=== PATIENT | male | born 1970 | race Caucasian/White ===

== ENCOUNTER 2019-04-10 23:05 | Inpatient (IN) ==
[2019-04-11] MEDS ORDERED: MAGNESIUM HYDROXIDE SUSP 30 ML UDC PO PRN (01:43)
[2019-04-11] MEDS ORDERED: BISMUTH SUBSALICYLATE PER ML OMNICELL CHARGE PO PRN (01:43)
[2019-04-11] MEDS ORDERED: ALUMINUM/MAGNESIUM SUSP 30 ML UDC PO PRN (01:43)
[2019-04-11] MEDS ORDERED: SODIUM CHLORIDE 0.65% NA SOLN 45 ML (OCEAN) PRN (01:43)
[2019-04-11] MEDS ORDERED: ACETAMINOPHEN 325 MG TAB PO PRN (01:43)
[2019-04-11] MEDS ORDERED: PHARMACY GLYCEMIC MGMT CONSULT PRN (04:15)
[2019-04-11] MEDS ORDERED: CARBOHYDRATES FOR HYPOGLYCEMIA PO PRN (04:30)
[2019-04-11] MEDS ORDERED: GLUCAGON FOR INJ 1 MG VIAL IM PRN (04:30)
[2019-04-11] MEDS ORDERED: DEXTROSE 50% 50 ML SYRINGE IV PRN (04:30)
[2019-04-11] MEDS ORDERED: GLUCOSE 40% GEL 15 GM TUBE PO PRN (04:30)
[2019-04-11] MEDS ORDERED: GLUCOSE 10 TABS/TUBE PO PRN (04:30)
[2019-04-11 09:07] LABS: Estimated Average Glucose 123 mg/dl; Hemoglobin A1C 5.9 % (4.5-5.6)
[2019-04-11] MEDS: ATORVASTATIN 40 MG TAB PO SCH (09:11)
[2019-04-11] MEDS: INSULIN ASPART 100 UNITS/ML 3 ML PEN SC SCH ×4 (09:11→21:25)
[2019-04-11] MEDS: CLOPIDOGREL BISULFATE 75 MG TAB PO SCH (09:11)
[2019-04-11] MEDS: LISINOPRIL/HCTZ 20/12.5MG 1 TAB TAB PO SCH (09:11)
--- NOTE | 2019-04-11 09:35 | Pharmacy Report ---
Glycemic Control Consultation - Date of Service April 11, 2019 - Scope Scope: Glycemic Pharmacist consulted by Dr Pressley on 04/11 for glycemic control and to write orders per [facility] inpatient glycemic control protocol - Objective Weight: 103 kg Accuchecks BSG (last 24hrs): 04/11/19 04/11/19 01:42 08:41 POC Glucose 106 H 127 H HbA1c: Hemoglobin A1c 5.9 % (4.5-5.6) H 04/11/19 07:00 - Recent Pertinent Medications Outpatient Anti-diabetic Regimen: * Tresiba - 160 units daily, Humalog 32 units at bedtime - not clear if these doses are accurate ; per report from nursing, patient states he has not taken any insulin >1 month and is controlling diabetes with diet * A1c = 5.9 % 04/10/19 Risk Factors for Insulin Resistance: * Diet: T2DM - Assessment & Plan Assessment & Plan: ASSESSMENT: * 48 year old male admitted with psychosis. Reports not taking insulin for over a month and is eating healthier to control his diabetes. A1C w/in range at 5.9%. Unclear compliance with insulin regimen at home. Nurse to follow up to determine patient's PCP. * Will start novolog with meals this morning - will hold basal insulin until more information available PLAN FOR INPATIENT GLYCEMIC CONTROL: * Basal insulin * scale for this evening: give 10 units if BSG >180 * Bolus insulin * NovoLog per scale ACHS or Q6hrs while NPO * Goal Range: Low 110 mg/dL - High 140 mg/dL * Correction Factor: 30 mg/dL/unit * Nutritional / Prandial insulin per carb ratio of 1 unit per 10 grams CHO consumed * Please note that the plan above was derived based on current level of insulin resistance and hospital stress. These recommendations are appropriate for inpatient admission only. Plan of care upon discharge will need to be reassessed to avoid potential outpatient hypo/hyperglycemia. Thank you.
[2019-04-11] MEDS ORDERED: haloperidoL 1 MG TAB PO PRN (09:59)
[2019-04-11] MEDS ORDERED: LORazepam 0.5 MG TAB PO PRN (10:01)
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
[2019-04-11] MEDS: CITALOPRAM 20 MG TAB PO SCH (12:42)
[2019-04-11] MEDS ORDERED: LANTUS PER UNIT CHARGE SQ SCH (22:00)
[2019-04-12] MEDS: CITALOPRAM 20 MG TAB PO SCH (08:13)
[2019-04-12] MEDS: LISINOPRIL/HCTZ 20/12.5MG 1 TAB TAB PO SCH (08:15)
[2019-04-12] MEDS: ATORVASTATIN 40 MG TAB PO SCH (08:15)
[2019-04-12] MEDS: CLOPIDOGREL BISULFATE 75 MG TAB PO SCH (08:15)
[2019-04-12] MEDS: INSULIN ASPART 100 UNITS/ML 3 ML PEN SC SCH ×4 (08:57→21:22)
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
--- NOTE | 2019-04-12 11:47 | Pharmacy Report ---
Pharmacy Glycemic Short Note 2 - Date of Service April 12, 2019 - Glycemic Short BSG Results (Last 24 hours): 04/11/19 04/11/19 04/11/19 12:36 17:29 21:19 POC Glucose 110 H 185 H 96 04/12/19 08:02 POC Glucose 100 H ASSESSMENT: 04/12 * Patient received total of 14 units of insulin yesterday, no basal insulin * Fasting BSG within range at 100 mg/dL - will loosen CR slightly as BSGs trending down * Hold basal insulin at this time 04/11 * 48 year old male admitted with psychosis. Reports not taking insulin for over a month and is eating healthier to control his diabetes. A1C w/in range at 5.9%. Unclear compliance with insulin regimen at home. Per patient significant amt of weight loss of last couple of months * Will start novolog with meals this morning - will hold basal insulin until more information available PLAN FOR INPATIENT GLYCEMIC CONTROL: * Basal insulin * hold * Bolus insulin - loosen * NovoLog per scale ACHS or Q6hrs while NPO * Goal Range: Low 110 mg/dL - High 140 mg/dL * Correction Factor: 30 mg/dL/unit * Nutritional / Prandial insulin per carb ratio of 1 unit per 12 grams CHO consumed * Please note that the plan above was derived based on current level of insulin resistance and hospital stress. These recommendations are appropriate for inpatient admission only. Plan of care upon discharge will need to be reassessed to avoid potential outpatient hypo/hyperglycemia. Thank you. PLAN FOR DISCHARGE: * A1C of 5.9% indicates pre-diabetes range - per report from patient, he has not taken any insulin in months and has managed DM with healthy lifestyle/exercise/weight loss * Would ideally recommend SMBGs at home to better assess insulin needs/BSG trends, however patient refusing at this time to monitor. Hopefully try and work with patient to at least check BSGs once daily * Will continue to follow - at this point hesitant to give any insulin post discharge and encourage continuation of healthy lifestyle
[2019-04-12] MEDS: risperiDONE 1 MG TABLET PO SCH ×2 (14:14→21:24)
[2019-04-13 08:10] LABS: Chol HDL Ratio 4; Cholesterol 128 mg/dl (0-200); HDL Cholesterol 35 mg/dl; LDL Cholesterol Calculated 67 mg/dl; Triglycerides 132 mg/dl (0-150); VLDL Cholesterol 26 mg/dl
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
[2019-04-13] MEDS: CITALOPRAM 20 MG TAB PO SCH (09:49)
[2019-04-13] MEDS: ATORVASTATIN 40 MG TAB PO SCH (09:51)
[2019-04-13] MEDS: CLOPIDOGREL BISULFATE 75 MG TAB PO SCH (09:51)
[2019-04-13] MEDS: LISINOPRIL/HCTZ 20/12.5MG 1 TAB TAB PO SCH (09:51)
[2019-04-13] MEDS: risperiDONE 1 MG TABLET PO SCH ×2 (09:52→21:39)
[2019-04-13] MEDS: INSULIN ASPART 100 UNITS/ML 3 ML PEN SC SCH ×4 (09:56→21:37)
[2019-04-14] MEDS: CITALOPRAM 20 MG TAB PO SCH (08:11)
[2019-04-14] MEDS: LISINOPRIL/HCTZ 20/12.5MG 1 TAB TAB PO SCH (08:12)
[2019-04-14] MEDS: ATORVASTATIN 40 MG TAB PO SCH (08:12)
[2019-04-14] MEDS: CLOPIDOGREL BISULFATE 75 MG TAB PO SCH (08:12)
[2019-04-14] MEDS: risperiDONE 1 MG TABLET PO SCH ×2 (08:13→22:12)
--- NOTE | 2019-04-14 09:07 | Psychiatric Progress Note ---
Date of Service April 14, 2019 Impression / Recommendations Impression 48 yo male with a history of depression and 6-8 months of worsening psychosis who presented on referral from [facility] ER with paranoia without clear cause (7 yrs out from [facility], no prior psychosis, negative tox). He was admitted on a 302 involuntary commitment with a petition from his brother, and is on a 303 as of 04/14/2019 He reported low mood prior to onset of his paranoid delusions which could suggest depression with psychotic features, but demonstrates predominant delusions without otherwise disorganized behavior and rather intact thought processes (re: organization), which may indicate delus ional disorder. He remains floridly delusional, states he cannot return home due to persecution and not feeling safe there, and although he initially refused antipsychotic medication, agreed to a trial of risperidone which was started 04/12/2019. He had a meeting with his brother and LUIS who are supportive, but continues to feel unsafe at home and admits he had SI due to his level of distress, which would likely recur if he returned to his apartment. He has also demonstrated inability to care for himself as a result of his psychosis, as he has not been checking his blood sugar at home nor taking insulin for his diabetes in several months due to delusions. (1) Psychotic disorder: 2--The patient was admitted to the [facility] ([facility]) on q15 min checks (behavioral with suicide precautions) for safety. The patient will participate in group, recreational, and milieu therapies and will be offered additional individual and family sessions as clinically appropriate. Discussed antipsychotic medication with the patient to more acutely address symptoms. Refuses Risperdal at this time. Ordered Haldol and Ativan prn should he escalate throughout day. By history there is some affective component and he agrees to resume Celexa 10 mg only at this time. Will order and seek additional collateral over course of stay to refine diagnosis. 2--continue citalopram 10 mg daily, and add risperidone 1 mg twice daily to target psychosis. Check fasting lipid profile tomorrow for baseline on an atypical. Already had hemoglobin A1c checked here. Continue to encourage group attendance and participation. -Family meeting with brothers. Review safety plan, including plan to secure weapons in his home prior to discharge. -Refer for outpatient psychiatric care (manager rn case, [facility] for psychiatry and therapy). Family meeting with brother -Continue inpatient treatment on a 302 involuntary commitment, and continue to gather information toward the need for further commitment. 2--continue citalopram 10 mg daily and risperidone 1 mg twice daily. Fasting lipid profile within normal limits, hemoglobin A1c 5.9%. -Patient remains delusional, and given risks of premature discharge and demonstrated inability to maintain health and safety as above, will file for a 303 involuntary commitment. -Continue medically necessary private room for psychosis and significant paranoia, fears that unknown others are conspiring against him. -Family meeting with brother today. -Refer for outpatient treatment to include manager rn case, psychiatry, and therapy. -MoCA score 19/30 - cognition may be negatively impacted by psychosis and anxiety, but will need ongoing monitoring and retest once psychosis resolved as may be underlying cognitive disorder. 04/14--303 granted. -Family supportive and will help him identify other housing options. -Pt still does not feel safe to return home. Unable to reality test w/ respect to delusions - will continue to work on coping skills/relaxation techniques (2) Coronary arteriosclerosis: 2 -with history of stroke--continue Plavix 04/13 -recommend brain MRI as an outpatient, as the patient indicates he has not had one in at least 40 years. Want to rule out recurrent stroke, vascular dementia, or brain lesion that may be contributing to new onset psychosis. -We will refer for outpatient follow-up with PCP to schedule brain MRI, and then to determine if there is a need for a neurology referral. (3) Type II diabetes mellitus: 2/3 -diabetic pharmacy consult, HgbA1C as ordered by pharmacy. 04/12 -hemoglobin A1c 5.9%, with estimated average glucose of 123. Continue insulin regimen per diabetic pharmacist. 04/13 -appreciate diabetic pharmacist recommendations. Patient psychosis is negatively impacting his diabetes control, as he has not been checking his blood sugar at home nor taking insulin for months due to delusions of persecution. He will need close follow-up as an outpatient after discharge for ongoing monitoring and management. (4) Hypertension: daily vitals, continue lisinopril 2 -BP well controlled. Inventory Assets Strengths: has already started drawing and reading on unit, concerned family Needs: secure knives, outpatient providers Risk Factors Assessment Male: Yes : Yes Do You Have Access To A Gun?: No (but multiple fishing knives) Health Problems: No Mental Health Diagnoses: Yes Substance Use Disorders: No Previous Attempt: No Family History of Suicide: No Previous Psychiatric Hospitalization: No Protective Factors Assessment L[employer] Beliefs: Yes : No Responsible for Young Children: No Employed: No Supportive Family: Yes Interval History Identifying Information RUFINO HERNANDEZ, who goes by Art, is a 48-year-old M who currently lives alone in [place], has a history of nonspecific depression, and was admitted on 04/11/19 00:07 on a 302 involuntary commitment for paranoia and elopement from [facility]. Chief Complaint "Okay". Review of Systems Notes 10 systems reviewed; negative except as stated above Sleep Information Total Hours of Sleep: 5.5 Meal Information Percent Meal Consumed - Breakfast: 100 Percent Meal Consumed - Lunch: 100 Percent Meal Consumed - Dinner: 100 Subjective Subjective Patient was seen & assessed and interval progress reviewed with nursing and social work. He has been attending groups and taking medications as prescribed. He is eating well, and interacting appropriately with others. He continues to report that people are harassing him in his apartment, and that he does not feel safe returning there. He had a family meeting with his brother and [id number] yesterday. They stated that the patient had improved since a dmission, and were willing to help him work on a plan to find different housing. The patient was able to identify many ways that his family could help him, and remained focused on delusions of persecution, at one point stating he might need to move to [place] to get away from unknown others. He remains unwilling to return home and is unsure where he will go at discharge. He does feel treatment has been helpful but remains sensitive to people "not believing" his reports of experiences at home. Physical Exam Psychiatric Orientation: alert and cooperative Apperance: appropriately dressed and appropriately groomed Eye Contact: good eye contact Motor Behavior: steady gait and station and no abnormal motor movements Speech: normal rate/rhythm/volume of speech Affect: mood congruent with affect "Okay." Thought Process: goal directed thought process Thought Content: + paranoid, + delusions and + persecution Suicidal Thoughts: denies suicidal thoughts Homicidal Thoughts: denies homicidal thoughts Hallucinations: no auditory hallucinations Cognition: recent memory grossly intact, attention grossly intact and language grossly intact Insight: + impaired insight Judgement: + impaired judgement Vital Signs (Past 24 Hours) Last Vital Signs Temp 36.7 C 04/14/19 06:40 Pulse 109 H 04/14/19 06:41 Resp 18 04/14/19 06:40 BP 98/64 L 04/14/19 06:41 Pulse Ox 93 04/11/19 01:15 Results & Data Laboratory Results Laboratory Results - last 24 hr 04/13/19 04/13/19 04/13/19 12:11 17:12 21:16 POC Glucose 114 H 213 H 108 H 04/14/19 07:57 POC Glucose 147 H Current Inpatient Medications Current Inpatient Medications: Current Inpatient Medications Acetaminophen (Tylenol) 650 mg PO Q4H PRN PRN Reason: Headache or Minor Fever Stop: 05/11/19 01:42 Al Hydrox/Mg Hydrox/Simethicone (Maalox) 30 ml PO Q4H PRN PRN Reason: GI Upset Stop: 05/11/19 01:42 Atorvastatin Calcium (Lipitor) 80 mg PO [facility] Stop: 05/11/19 08:59 Last Admin: 04/14/19 08:12 Dose: 80 mg Documented by: Bismuth Subsalicylate (Kaopectate) 15 ml PO PRN PRN PRN Reason: Loose Stool Stop: 05/11/19 01:42 Citalopram Hydrobromide (Celexa) 10 mg PO [facility] Stop: 05/11/19 09:59 Last Admin: 04/14/19 08:11 Dose: 10 mg Documented by: Clopidogrel Bisulfate (Plavix) 75 mg PO [facility] Stop: 05/11/19 08:59 Last Admin: 04/14/19 08:12 Dose: 75 mg Documented by: Dextrose (Dextrose 50%) 25 - 50 ml IV UD PRN; Protocol PRN Reason: Hypoglycemia Protocol Stop: 05/11/19 04:29 Glucagon (Glucagen) 1 mg IM UD PRN; Protocol PRN Reason: Hypoglycemia Protocol Stop: 05/11/19 04:29 Glucose (Glucose 40%) 15 - 30 gm PO UD PRN; Protocol PRN Reason: Hypoglycemia Protocol Stop: 05/11/19 04:29 Glucose (Dex4 Glucose) 4 - 8 tabs PO UD PRN; Protocol PRN Reason: Hypoglycemia Protocol Stop: 05/11/19 04:29 Lisinopril/HCTZ (Prinzide 20/12.5mg) 1 tab PO QAM [facility] Stop: 05/11/19 08:59 Last Admin: 04/14/19 08:12 Dose: 1 tab Documented by: Haloperidol (Haldol) 2.5 mg PO Q6 PRN PRN Reason: Anxiety/Agitation Stop: 05/11/19 11:59 Hydroxyzine HCl (Vistaril) 50 mg PO HSZ PRN PRN Reason: Insomnia Stop: 05/11/19 01:42 Hydroxyzine HCl (Vistaril) 25 mg PO Q4H PRN PRN Reason: Anxiety Stop: 05/11/19 01:42 Insulin Aspart (Novolog Flexpen) 0 units SC ACHS [facility]; Protocol Stop: 05/11/19 07:59 Last Admin: 04/13/19 21:37 Dose: Not Given Documented by: Lorazepam (Ativan) 0.5 mg PO Q6 PRN PRN Reason: Anxiety Stop: 05/11/19 10:00 Magnesium Hydroxide (Milk Of Magnesia) 30 ml PO DAILY PRN PRN Reason: Constipation Stop: 05/11/19 01:42 Miscellaneous (Carbohydrates For Hypoglycemia) 15 - 30 gm PO UD PRN PRN Reason: Hypoglycemia Treatment Stop: 05/11/19 04:29 Miscellaneous Information (Consult Glycemic Management Pharmacy) 1 ea N/A UD PRN PRN Reason: Consult Stop: 05/11/19 04:14 Risperidone (Risperdal) 1 mg PO BID [facility] Stop: 05/12/19 13:14 Last Admin: 04/14/19 08:13 Dose: 1 mg Documented by: Sodium Chloride (Vancleave Nasal) 1 - 2 sprays NA PRN PRN PRN Reason: Nasal Dryness/Congestion Stop: 05/11/19 01:42 Post Discharge Appointments Primary Care Physician Name Of Family Doctor: Dr. Sofie ZhuMeshaKirill Mcmahon PA-C (1) Psychotic disorder Psychosis type: unspecified psychosis type Qualified Code(s): F29 - Unspecified psychosis not due to a substance or known physiological condition
[2019-04-14] MEDS: INSULIN ASPART 100 UNITS/ML 3 ML PEN SC SCH ×4 (09:12→22:10)
--- NOTE | 2019-04-14 09:35 | Pharmacy Report ---
Pharmacy Glycemic Short Note 2 - Date of Service April 14, 2019 - Glycemic Short BSG Results (Last 24 hours): 04/13/19 04/13/19 04/13/19 12:11 17:12 21:16 POC Glucose 114 H 213 H 108 H 04/14/19 07:57 POC Glucose 147 H ASSESSMENT: 04/14 * Patient received total of 9 units of insulin yesterday, no basal insulin * Fasting BSG 147 mg/dL - no changes needed at this time in CF/CR * continue to hold basal insulin at this time * See CDE note for more information 04/12 * Patient received total of 14 units of insulin yesterday, no basal insulin * Fasting BSG within range at 100 mg/dL - will loosen CR slightly as BSGs trending down * Hold basal insulin at this time 04/11 * 48 year old male admitted with psychosis. Reports not taking insulin for over a month and is eating healthier to control his diabetes. A1C w/in range at 5.9%. Unclear compliance with insulin regimen at home. Per patient significant amt of weight loss of last couple of months * Will start novolog with meals this morning - will hold basal insulin until more information available PLAN FOR INPATIENT GLYCEMIC CONTROL: * Basal insulin * hold * Bolus insulin * NovoLog per scale ACHS or Q6hrs while NPO * Goal Range: Low 110 mg/dL - High 140 mg/dL * Correction Factor: 30 mg/dL/unit * Nutritional / Prandial insulin per carb ratio of 1 unit per 14 grams CHO consumed * Please note that the plan above was derived based on current level of insulin resistance and hospital stress. These recommendations are appropriate for inpatient admission only. Plan of care upon discharge will need to be reassessed to avoid potential outpatient hypo/hyperglycemia. Thank you. PLAN FOR DISCHARGE: * A1C of 5.9% indicates pre-diabetes range - per report from patient, he has not taken any insulin in months and has managed DM with healthy lifestyle/exercise/weight loss * Would ideally recommend SMBGs at home to better assess insulin needs/BSG trends, however patient refusing at this time to monitor. Hopefully try and work with patient to at least check BSGs once daily * Will continue to follow - at this point hesitant to give any insulin post discharge and encourage continuation of healthy lifestyle
[2019-04-15] MEDS: CITALOPRAM 20 MG TAB PO SCH (08:49)
[2019-04-15] MEDS: risperiDONE 1 MG TABLET PO SCH ×2 (08:50→21:18)
[2019-04-15] MEDS: LISINOPRIL/HCTZ 20/12.5MG 1 TAB TAB PO SCH (08:50)
[2019-04-15] MEDS: CLOPIDOGREL BISULFATE 75 MG TAB PO SCH (08:50)
[2019-04-15] MEDS: ATORVASTATIN 40 MG TAB PO SCH (08:50)
[2019-04-15] MEDS: INSULIN ASPART 100 UNITS/ML 3 ML PEN SC SCH ×5 (09:03→21:51)
--- NOTE | 2019-04-15 09:14 | Psychiatric Progress Note ---
Date of Service April 15, 2019 Impression / Recommendations Impression 48 yo male with a history of depression and 6-8 months of worsening psychosis who presented on referral from [facility] ER with paranoia without clear cause (7 yrs out from [facility], no prior psychosis, negative tox). He was admitted on a 302 involuntary commitment with a petition from his brother, and is on a 303 as of 04/14/2019 He reported low mood prior to onset of his paranoid delusions which could suggest depression with psychotic features, but demonstrates predominant delusions without otherwise disorganized behavior and rather intact thought processes (re: organization), which may indicate delus ional disorder. He remains floridly delusional, states he cannot return home due to persecution and not feeling safe there, and although he initially refused antipsychotic medication, agreed to a trial of risperidone which was started 04/12/2019. He had a meeting with his brother and LUIS who are supportive, but continues to feel he will be targeted if he were to return home to his apartment. He is now stating he is planning to call his insurance to install security cameras and continues to state he does not want to return back there. He has also demonstrated inability to care for himself as a result of his psychosis, as he has not been checking his blood sugar at home nor taking insulin for his diabetes in several months due to delusions. (1) Psychotic disorder: 2--The patient was admitted to the [facility] ([facility]) on q15 min checks (behavioral with suicide precautions) for safety. The patient will participate in group, recreational, and milieu therapies and will be offered additional individual and family sessions as clinically appropriate. Discussed antipsychotic medication with the patient to more acutely address symptoms. Refuses Risperdal at this time. Ordered Haldol and Ativan prn should he escalate throughout day. By history there is some affective component and he agrees to resume Celexa 10 mg only at this time. Will order and seek additional collateral over course of stay to refine diagnosis. 2--continue citalopram 10 mg daily, and add risperidone 1 mg twice daily to target psychosis. Check fasting lipid profile tomorrow for baseline on an atypical. Already had hemoglobin A1c checked here. Continue to encourage group attendance and participation. -Family meeting with brothers. Review safety plan, including plan to secure weapons in his home prior to discharge. -Refer for outpatient psychiatric care (geriatric case manager, KATH Barajas for psychiatry and therapy). Family meeting with brother -Continue inpatient treatment on a 302 involuntary commitment, and continue to gather information toward the need for further commitment. 04/13--continue citalopram 10 mg daily and risperidone 1 mg twice daily. Fasting lipid profile within normal limits, hemoglobin A1c 5.9%. -Patient remains delusional, and given risks of premature discharge and demonstrated inability to maintain health and safety as above, will file for a 303 involuntary commitment. -Continue medically necessary private room for psychosis and significant paranoia, fears that unknown others are conspiring against him. -Family meeting with brother today. -Refer for outpatient treatment to include geriatric case manager, psychiatry, and therapy. -MoCA score 19/30 - cognition may be negatively impacted by psychosis and anx iety, but will need ongoing monitoring and retest once psychosis resolved as may be underlying cognitive disorder. 04/14--303 granted. -Family supportive and will help him identify other housing options. -Pt still does not feel safe to return home. Unable to reality test w/ respect to delusions - will continue to work on coping skills/relaxation techniques 04/15 - Titrating risperidone to 1mg qAM and 1.5mg qHS to target ongoing delusions. Pt remains pleasant and behaviorally appropriate, but continues to report delusional beliefs about his neighbors, feeling the situation is unchanged - Continue to coordinate with family, who has offered support to the patient - Pt is denying HI toward individuals, but does have a current plan to call his insurance to install security cameras in his apartment (2) Coronary arteriosclerosis: 2 -with history of stroke--continue Plavix 04/13 -recommend brain MRI as an outpatient, as the patient indicates he has not had one in at least 40 years. Want to rule out recurrent stroke, vascular dementia, or brain lesion that may be contributing to new onset psychosis. -We will refer for outpatient follow-up with PCP to schedule brain MRI, and then to determine if there is a need for a neurology referral. (3) Type II diabetes mellitus: 2/3 -diabetic pharmacy consult, HgbA1C as ordered by pharmacy. 04/12 -hemoglobin A1c 5.9%, with estimated average glucose of 123. Continue insulin regimen per diabetic pharmacist. 04/13 -appreciate diabetic pharmacist recommendations. Patient psychosis is negatively impacting his diabetes control, as he has not been checking his blood sugar at home nor taking insulin for months due to delusions of persecution. He will need close follow-up as an outpatient after discharge for ongoing monitoring and management. (4) Hypertension: daily vitals, continue lisinopril 2/ -BP well controlled. Inventory Assets Strengths: has already started drawing and reading on unit, concerned family Needs: secure knives, outpatient providers Risk Factors Assessment Male: Yes : Yes Do You Have Access To A Gun?: No (but multiple fishing knives) Health Problems: No Mental Health Diagnoses: Yes Substance Use Disorders: No Previous Attempt: No Family History of Suicide: No Previous Psychiatric Hospitalization: No Protective Factors Assessment Yazdanism Beliefs: Yes : No Responsible for Young Children: No Employed: No Supportive Family: Yes Interval History Identifying Information RUFINO HERNANDEZ, who goes by Art, is a 48-year-old M who currently lives alone in [place], has a history of nonspecific depression, and was admitted on 04/11/19 00:07 on a 302 involuntary commitment for paranoia and elopement from [facility]. Chief Complaint "Awesome sauce." Review of Systems Notes Constitutional: denied Cardiovascular: denied Respiratory: denied Gastrointestinal: denied Neurological: denied Psychiatric: denies symptoms other than stated above Total of at least 10 systems reviewed, pertinent positives as above and in HPI. Sleep Information Total Hours of Sleep: 4.5 Sleep Comments: Patient gets up early to read in the day room. Meal Information Percent Meal Consumed - Breakfast: 90 Percent Meal Consumed - Lunch: 90 Percent Meal Consumed - Dinner: 100 Subjective Subjective Patient was seen & assessed and interval progress reviewed with treatment team. Staff report the patient continues to attend group programming regularly. Remains superficially pleasant and cooperative; however, continues to verbalize various delusional beliefs during conversation. 303 extended involuntary commitment was granted on 04/14/2019. Patient was seen today to assess progress since admission. He provides verbal consent to allow Griselda Campbell PA-C to observe today's encounter. Patient begins today's conversation by using the phrase "awesome sauce", admitting he is feeling "a lot better, I feel secure. More confident." Patient states that he has been "using the things you have been teaching here to be more assertive with my family." Patient states he is actually been requesting that his brother and sister "back off" and respect his privacy with regards to conversations about finances and relationships. Patient states "the tools I am doing right here are helping me. I think I am feeling better." Patient admits he has been attending group programming regularly, otherwise staying busy by drawing or interacting with peers. Patient is able to have a superficially appropriate conversation; however, weekly spirals into more delusional thought content and admits concerned about going home. Patient believes that individuals at his apartment building will continue to be "messing with me" when he leaves. Patient states he has found comfort in a plan to "get a security system, I am going to call my insurance company and have cameras installed to monitor them." Patient denies thoughts to physically harm these individuals, but is rather convinced that he will take the steps to protect his safety. Patient continues to believe that the individuals are controlling the locks to his apartment in his truck with "their electronics." Patient denies any of these concerns here in the hospital. He denies suicidal ideation at this time. He denies other needs or concerns. Physical Exam Psychiatric Orientation: alert and cooperative (and pleasant) Apperance: appropriately dressed, appropriately groomed and appeared stated age Eye Contact: good eye contact Motor Behavior: steady gait and station and no abnormal motor movements Speech: normal rate/rhythm/volume of speech Affect: euthymic affect and mood congruent with affect Mood: no depressed mood and no anxious mood "Awesome sauce" and "I feel great" Thought Process: goal directed thought process and + circumstantial thought process (interjecting statements about his artwork and about his love for cooking) Thought Content: + paranoid and + persecution Suicidal Thoughts: denies suicidal thoughts Homicidal Thoughts: denies homicidal thoughts Hallucinations: no auditory hallucinations and no visual hallucinations Cognition: attention grossly intact and language grossly intact Insight: + impaired insight Judgement: + impaired judgement Vital Signs (Past 24 Hours) Last Vital Signs Temp 36.3 C L 04/15/19 06:42 Pulse 78 04/15/19 06:42 Resp 18 04/15/19 06:42 BP 134/65 04/15/19 06:42 Pulse Ox 93 04/11/19 01:15 Results & Data Laboratory Results Laboratory Results - last 24 hr 04/14/19 04/14/19 04/14/19 12:16 17:29 21:47 POC Glucose 102 H 135 H 167 H Current Inpatient Medications Current Inpatient Medications: Current Inpatient Medications Acetaminophen (Tylenol) 650 mg PO Q4H PRN PRN Reason: Headache or Minor Fever Stop: 05/11/19 01:42 Al Hydrox/Mg Hydrox/Simethicone (Maalox) 30 ml PO Q4H PRN PRN Reason: GI Upset Stop: 05/11/19 01:42 Atorvastatin Calcium (Lipitor) 80 mg PO [facility] Stop: 05/11/19 08:59 Last Admin: 04/15/19 08:50 Dose: 80 mg Documented by: Bismuth Subsalicylate (Kaopectate) 15 ml PO PRN PRN PRN Reason: Loose Stool Stop: 05/11/19 01:42 Citalopram Hydrobromide (Celexa) 10 mg PO [facility] Stop: 05/11/19 09:59 Last Admin: 04/15/19 08:49 Dose: 10 mg Documented by: Clopidogrel Bisulfate (Plavix) 75 mg PO [facility] Stop: 05/11/19 08:59 Last Admin: 04/15/19 08:50 Dose: 75 mg Documented by: Dextrose (Dextrose 50%) 25 - 50 ml IV UD PRN; Protocol PRN Reason: Hypoglycemia Protocol Stop: 05/11/19 04:29 Glucagon (Glucagen) 1 mg IM UD PRN; Protocol PRN Reason: Hypoglycemia Protocol Stop: 05/11/19 04:29 Glucose (Glucose 40%) 15 - 30 gm PO UD PRN; Protocol PRN Reason: Hypoglycemia Protocol Stop: 05/11/19 04:29 Glucose (Dex4 Glucose) 4 - 8 tabs PO UD PRN; Protocol PRN Reason: Hypoglycemia Protocol Stop: 05/11/19 04:29 Lisinopril/HCTZ (Prinzide 20/12.5mg) 1 tab PO [facility] Stop: 05/11/19 08:59 Last Admin: 04/15/19 08:50 Dose: 1 tab Documented by: Haloperidol (Haldol) 2.5 mg PO Q6 PRN PRN Reason: Anxiety/Agitation Stop: 05/11/19 11:59 Hydroxyzine HCl (Vistaril) 50 mg PO HSZ PRN PRN Reason: Insomnia Stop: 05/11/19 01:42 Hydroxyzine HCl (Vistaril) 25 mg PO Q4H PRN PRN Reason: Anxiety Stop: 05/11/19 01:42 Insulin Aspart (Novolog Flexpen) 0 units SC ACHS AMY; Protocol Stop: 05/11/19 07:59 Last Admin: 04/15/19 09:03 Dose: 3 units Documented by: Lorazepam (Ativan) 0.5 mg PO Q6 PRN PRN Reason: Anxiety Stop: 05/11/19 10:00 Magnesium Hydroxide (Milk Of Magnesia) 30 ml PO DAILY PRN PRN Reason: Constipation Stop: 05/11/19 01:42 Miscellaneous (Carbohydrates For Hypoglycemia) 15 - 30 gm PO UD PRN PRN Reason: Hypoglycemia Treatment Stop: 05/11/19 04:29 Miscellaneous Information (Consult Glycemic Management Pharmacy) 1 ea N/A UD PRN PRN Reason: Consult Stop: 05/11/19 04:14 Risperidone (Risperdal) 1 mg PO BID AMY Stop: 05/12/19 13:14 Last Admin: 04/15/19 08:50 Dose: 1 mg Documented by: Sodium Chloride ([place] Nasal) 1 - 2 sprays NA PRN PRN PRN Reason: Nasal Dryness/Congestion Stop: 05/11/19 01:42 Mental Health & Subst Abuse Tx Psychiatrist Name of Psychiatrist: [facility] [place] [facility] Psychiatric Appointment Comment: Walk in hours 8am-3pm Tuesdays, [address] [facility] Post Discharge Appointments Primary Care Physician Name Of Family Doctor: Dr. Sofie Shields) Adonay Mcmahon PA-C [facility] Primary Care Date of Appointment with PCP: 04/26/19 Time of Appointment with PCP: 9:30am (1) Psychotic disorder Psychosis type: unspecified psychosis type Qualified Code(s): F29 - Unspecified psychosis not due to a substance or known physiological condition
[2019-04-16] MEDS: INSULIN ASPART 100 UNITS/ML 3 ML PEN SC SCH ×4 (09:41→21:29)
[2019-04-16] MEDS: CITALOPRAM 20 MG TAB PO SCH (09:44)
[2019-04-16] MEDS: ATORVASTATIN 40 MG TAB PO SCH (09:45)
[2019-04-16] MEDS: CLOPIDOGREL BISULFATE 75 MG TAB PO SCH (09:46)
[2019-04-16] MEDS: LISINOPRIL/HCTZ 20/12.5MG 1 TAB TAB PO SCH (09:46)
[2019-04-16] MEDS: risperiDONE 1 MG TABLET PO SCH ×2 (09:47→21:31)
--- NOTE | 2019-04-16 13:48 | Psychiatric Progress Note ---
Date of Service April 16, 2019 Impression / Recommendations Impression 48 yo male with a history of depression and 6-8 months of worsening psychosis who presented on referral from [facility] ER with paranoia without clear cause (7 yrs out from [facility], no prior psychosis, negative tox). He was admitted on a 302 involuntary commitment with a petition from his brother, and is on a 303 as of 04/14/2019 He reported low mood prior to onset of his paranoid delusions which could suggest depression with psychotic features, but demonstrates predominant delusions without otherwise disorganized behavior and rather intact thought processes (re: organization), which may indicate delus ional disorder. He remains floridly delusional, states he cannot return home due to persecution and not feeling safe there, and although he initially refused antipsychotic medication, agreed to a trial of risperidone which was started 04/12/2019. He had a meeting with his brother and LUIS who are supportive, but continues to feel he will be targeted if he were to return home to his apartment. He is now stating he is planning to call his insurance to install security cameras and continues to state he does not want to return back there. He has also demonstrated inability to care for himself as a result of his psychosis, as he has not been checking his blood sugar at home nor taking insulin for his diabetes in several months due to delusions. (1) Psychotic disorder: 2--The patient was admitted to the [facility] ([facility] health unit) on q15 min checks (behavioral with suicide precautions) for safety. The patient will participate in group, recreational, and milieu therapies and will be offered additional individual and family sessions as clinically appropriate. Discussed antipsychotic medication with the patient to more acutely address symptoms. Refuses Risperdal at this time. Ordered Haldol and Ativan prn should he escalate throughout day. By history there is some affective component and he agrees to resume Celexa 10 mg only at this time. Will order and seek additional collateral over course of stay to refine diagnosis. 2--continue citalopram 10 mg daily, and add risperidone 1 mg twice daily to target psychosis. Check fasting lipid profile tomorrow for baseline on an atypical. Already had hemoglobin A1c checked here. Continue to encourage group attendance and participation. -Family meeting with brothers. Review safety plan, including plan to secure weapons in his home prior to discharge. -Refer for outpatient psychiatric care (senior case manager, KATH Barajas for psychiatry and therapy). Family meeting with brother -Continue inpatient treatment on a 302 involuntary commitment, and continue to gather information toward the need for further commitment. 04/13--continue citalopram 10 mg daily and risperidone 1 mg twice daily. Fasting lipid profile within normal limits, hemoglobin A1c 5.9%. -Patient remains delusional, and given risks of premature discharge and demonstrated inability to maintain health and safety as above, will file for a 303 involuntary commitment. -Continue medically necessary private room for psychosis and significant paranoia, fears that unknown others are conspiring against him. -Family meeting with brother today. -Refer for outpatient treatment to include senior case manager, psychiatry, and therapy. -MoCA score 19/30 - cognition may be negatively impacted by psychosis and anx iety, but will need ongoing monitoring and retest once psychosis resolved as may be underlying cognitive disorder. 04/14--303 granted. -Family supportive and will help him identify other housing options. -Pt still does not feel safe to return home. Unable to reality test w/ respect to delusions - will continue to work on coping skills/relaxation techniques 04/15 - Titrating risperidone to 1mg qAM and 1.5mg qHS to target ongoing delusions. Pt remains pleasant and behaviorally appropriate, but continues to report delusional beliefs about his neighbors, feeling the situation is unchanged - Continue to coordinate with family, who has offered support to the patient - Pt is denying HI toward individuals, but does have a current plan to call his insurance to install security cameras in his apartment 04/16 -paranoia persists but trending more calm and re-directable -continue risperdal unchanged. tolerating well (2) Coronary arteriosclerosis: 2 -with history of stroke--continue Plavix 04/13 -recommend brain MRI as an outpatient, as the patient indicates he has not had one in at least 40 years. Want to rule out recurrent stroke, vascular ulices ntia, or brain lesion that may be contributing to new onset psychosis. -We will refer for outpatient follow-up with PCP to schedule brain MRI, and then to determine if there is a need for a neurology referral. (3) Type II diabetes mellitus: 2/ -diabetic pharmacy consult, HgbA1C as ordered by pharmacy. 04/12 -hemoglobin A1c 5.9%, with estimated average glucose of 123. Continue insulin regimen per diabetic pharmacist. 04/13 -appreciate diabetic pharmacist recommendations. Patient psychosis is negatively impacting his diabetes control, as he has not been checking his blood sugar at home nor taking insulin for months due to delusions of persecution. He will need close follow-up as an outpatient after discharge for ongoing monitoring and management. (4) Hypertension: daily vitals, continue lisinopril 04/12 -BP well controlled. 04/16 -BP low but asymptomatic this AM Inventory Assets Strengths: has already started drawing and reading on unit, concerned family Needs: secure knives, outpatient providers Risk Factors Assessment Male: Yes : Yes Do You Have Access To A Gun?: No (but multiple fishing knives) Health Problems: No Mental Health Diagnoses: Yes Substance Use Disorders: No Previous Attempt: No Family History of Suicide: No Previous Psychiatric Hospitalization: No Protective Factors Assessment Bahai Beliefs: Yes : No Responsible for Young Children: No Employed: No Supportive Family: Yes Interval History Identifying Information RUFINO HERNANDEZ, who goes by Art, is a 48-year-old M who currently lives alone in [place], has a history of nonspecific depression, and was admitted on 04/11/19 00:07 on a 302 involuntary commitment for paranoia and elopement from [facility]. Chief Complaint " I am very good". Review of Systems Notes Denies dizziness, dystonia. Sleep Information Total Hours of Sleep: 6.25 Sleep Comments: Patient gets up early to read in the day room. Meal Information Percent Meal Consumed - Breakfast: 75 Percent Meal Consumed - Lunch: 100 Percent Meal Consumed - Dinner: 100 Subjective Subjective Patient was seen & assessed and interval progress reviewed with treatment team. Per staff, no acute events overnight. Blood sugar 117. 303 up the . Patient rated his mood 9 out of 10 last night. Risperdal increased on Thursday. Patient reports feeling calm and experiencing a good mood. He is observed ambulating in the hallway with a stable fluid gait carrying multiple books and notepads in his hands. States he is keeping busy reading, drawing, and jotting down recipes that are interesting to him. He denies concerns presently but with a little probing residual paranoia becomes quickly evident. Believes he needs to obtain "theft insurance" and indicates that someone has been lying about his coverage. "I do not let it bother me." He denies feeling unsafe on the unit. He denies any side effects appreciable from the Risperdal Physical Exam Psychiatric Orientation: alert and cooperative Apperance: appropriately dressed and appropriately groomed Eye Contact: good eye contact Motor Behavior: steady gait and station; n akathisia Speech: normal rate/rhythm/volume of speech Affect: euthymic affect Mood: no depressed mood and no anxious mood Thought Process: + perseveration Thought Content: + paranoid Suicidal Thoughts: denies suicidal thoughts Homicidal Thoughts: denies homicidal thoughts Hallucinations: no auditory hallucinations Insight: + limited insight Judgement: + limited judgement Vital Signs (Past 24 Hours) Last Vital Signs Temp 36.7 C 04/16/19 07:00 Pulse 84 04/16/19 07:01 Resp 16 04/16/19 07:00 BP 87/57 L 04/16/19 07:01 Pulse Ox 93 04/11/19 01:15 Results & Data Laboratory Results Laboratory Results - last 24 hr 04/15/19 04/15/19 04/16/19 17:08 21:11 07:52 POC Glucose 123 H 112 H 117 H 04/16/19 04/16/19 12:37 12:41 POC Glucose 109 H 97 Current Inpatient Medications Current Inpatient Medications: Current Inpatient Medications Acetaminophen (Tylenol) 650 mg PO Q4H PRN PRN Reason: Headache or Minor Fever Stop: 05/11/19 01:42 Al Hydrox/Mg Hydrox/Simethicone (Maalox) 30 ml PO Q4H PRN PRN Reason: GI Upset Stop: 05/11/19 01:42 Atorvastatin Calcium (Lipitor) 80 mg PO [facility] Stop: 05/11/19 08:59 Last Admin: 04/16/19 09:45 Dose: 80 mg Documented by: Bismuth Subsalicylate (Kaopectate) 15 ml PO PRN PRN PRN Reason: Loose Stool Stop: 05/11/19 01:42 Citalopram Hydrobromide (Celexa) 10 mg PO [facility] Stop: 05/11/19 09:59 Last Admin: 04/16/19 09:44 Dose: 10 mg Documented by: Clopidogrel Bisulfate (Plavix) 75 mg PO [facility] Stop: 05/11/19 08:59 Last Admin: 04/16/19 09:46 Dose: 75 mg Documented by: Dextrose (Dextrose 50%) 25 - 50 ml IV UD PRN; Protocol PRN Reason: Hypoglycemia Protocol Stop: 05/11/19 04:29 Glucagon (Glucagen) 1 mg IM UD PRN; Protocol PRN Reason: Hypoglycemia Protocol Stop: 05/11/19 04:29 Glucose (Glucose 40%) 15 - 30 gm PO UD PRN; Protocol PRN Reason: Hypoglycemia Protocol Stop: 05/11/19 04:29 Glucose (Dex4 Glucose) 4 - 8 tabs PO UD PRN; Protocol PRN Reason: Hypoglycemia Protocol Stop: 05/11/19 04:29 Lisinopril/HCTZ (Prinzide 20/12.5mg) 1 tab PO [facility] Stop: 05/11/19 08:59 Last Admin: 04/16/19 09:46 Dose: 1 tab Documented by: Haloperidol (Haldol) 2.5 mg PO Q6 PRN PRN Reason: Anxiety/Agitation Stop: 05/11/19 11:59 Hydroxyzine HCl (Vistaril) 50 mg PO HSZ PRN PRN Reason: Insomnia Stop: 05/11/19 01:42 Hydroxyzine HCl (Vistaril) 25 mg PO Q4H PRN PRN Reason: Anxiety Stop: 05/11/19 01:42 Insulin Aspart (Novolog Flexpen) 0 units SC [facility]; Protocol Stop: 05/11/19 07:59 Last Admin: 04/16/19 13:09 Dose: 3 units Documented by: Lorazepam (Ativan) 0.5 mg PO Q6 PRN PRN Reason: Anxiety Stop: 05/11/19 10:00 Magnesium Hydroxide (Milk Of Magnesia) 30 ml PO DAILY PRN PRN Reason: Constipation Stop: 05/11/19 01:42 Miscellaneous (Carbohydrates For Hypoglycemia) 15 - 30 gm PO UD PRN PRN Reason: Hypoglycemia Treatment Stop: 05/11/19 04:29 Miscellaneous Information (Consult Glycemic Management Pharmacy) 1 ea N/A UD PRN PRN Reason: Consult Stop: 05/11/19 04:14 Risperidone (Risperdal) 1 mg PO [facility] Stop: 05/16/19 08:59 Last Admin: 04/16/19 09:47 Dose: 1 mg Documented by: Risperidone (Risperdal) 1.5 mg PO HS AMY Stop: 05/15/19 21:59 Last Admin: 04/15/19 21:18 Dose: 1.5 mg Documented by: Sodium Chloride ([place] Nasal) 1 - 2 sprays NA PRN PRN PRN Reason: Nasal Dryness/Congestion Stop: 05/11/19 01:42 Mental Health & Subst Abuse Tx Psychiatrist Name of Psychiatrist: KATH Barajas Psychiatrist's Psychiatric Appointment Comment: Walk in hours 8am-3pm Tuesdays, [address] [facility], [place] Cycle Manager Name of Cycle Manager: [facility] Phone Number for Cycle Manager: [phone] Date of Appointment with Cycle Manager: 04/28/19 Time of Appointment with Cycle Manager: 10:00 a.m. Case Management Appointment Comment: [facility] Post Discharge Appointments Primary Care Physician Name Of Family Doctor: Family Practice - Adonay Galdamez PA-C Primary Care Date of Appointment with PCP: 04/26/19 Time of Appointment with PCP: 9:30 am Provider Appointment Comment: [id number] [place] [address] Neurologist Name of Neurologist: Yas Sommer PA-C Neurologist's Date of Appointment with Neurologist: 04/27/19 Time of Appointment with Neurologist: 10:40 Neurology Appointment Comment: Appointment at [address] [place] [address] , [place] [address] Contact Information Discharge Discharge Address[address] [address] [place], [place] [address]W[place] [id number] (1) Psychotic disorder Psychosis type: unspecified psychosis type Qualified Code(s): F29 - Unspecified psychosis not due to a substance or known physiological condition
[2019-04-17] MEDS: ATORVASTATIN 40 MG TAB PO SCH (08:03)
[2019-04-17] MEDS: CLOPIDOGREL BISULFATE 75 MG TAB PO SCH (08:03)
[2019-04-17] MEDS: CITALOPRAM 20 MG TAB PO SCH (08:03)
[2019-04-17] MEDS: risperiDONE 1 MG TABLET PO SCH (08:04)
[2019-04-17] MEDS: LISINOPRIL/HCTZ 20/12.5MG 1 TAB TAB PO SCH (08:04)
[2019-04-17] MEDS: INSULIN ASPART 100 UNITS/ML 3 ML PEN SC SCH ×4 (08:40→21:53)
--- NOTE | 2019-04-17 11:24 | Psychiatric Progress Note ---
Date of Service April 17, 2019 Impression / Recommendations Impression 48 yo male with a history of depression and 6-8 months of worsening psychosis who presented on referral from [facility] ER with paranoia without clear cause (7 yrs out from [facility], no prior psychosis, negative tox). He was admitted on a 302 involuntary commitment with a petition from his brother, and is on a 303 as of 04/14/2019 He reported low mood prior to onset of his paranoid delusions which could suggest depression with psychotic features, but demonstrates predominant delusions without otherwise disorganized behavior and rather intact thought processes (re: organization), which may indicate delus ional disorder. He remains floridly delusional, states he cannot return home due to persecution and not feeling safe there, and although he initially refused antipsychotic medication, agreed to a trial of risperidone which was started 04/12/2019. He had a meeting with his brother and LUIS who are supportive, but continues to feel he will be targeted if he were to return home to his apartment. He is now stating he is planning to call his insurance to install security cameras and continues to state he does not want to return back there. He has also demonstrated inability to care for himself as a result of his psychosis, as he has not been checking his blood sugar at home nor taking insulin for his diabetes in several months due to delusions. (1) Psychotic disorder: 2--The patient was admitted to the [facility] ([facility] unit) on q15 min checks (behavioral with suicide precautions) for safety. The patient will participate in group, recreational, and milieu therapies and will be offered additional individual and family sessions as clinically appropriate. Discussed antipsychotic medication with the patient to more acutely address symptoms. Refuses Risperdal at this time. Ordered Haldol and Ativan prn should he escalate throughout day. By history there is some affective component and he agrees to resume Celexa 10 mg only at this time. Will order and seek additional collateral over course of stay to refine diagnosis. 2--continue citalopram 10 mg daily, and add risperidone 1 mg twice daily to target psychosis. Check fasting lipid profile tomorrow for baseline on an atypical. Already had hemoglobin A1c checked here. Continue to encourage group attendance and participation. -Family meeting with brothers. Review safety plan, including plan to secure weapons in his home prior to discharge. -Refer for outpatient psychiatric care (director case, [facility] Vam[facility] Barajas for psychiatry and therapy). Family meeting with brother -Continue inpatient treatment on a 302 involuntary commitment, and continue to gather information toward the need for further commitment. 04/13--continue citalopram 10 mg daily and risperidone 1 mg twice daily. Fasting lipid profile within normal limits, hemoglobin A1c 5.9%. -Patient remains delusional, and given risks of premature discharge and demonstrated inability to maintain health and safety as above, will file for a 303 involuntary commitment. -Continue medically necessary private room for psychosis and significant paranoia, fears that unknown others are conspiring against him. -Family meeting with brother today. -Refer for outpatient treatment to include director case, psychiatry, and therapy. -MoCA score 19/30 - cognition may be negatively impacted by psychosis and anx iety, but will need ongoing monitoring and retest once psychosis resolved as may be underlying cognitive disorder. 04/14--303 granted. -Family supportive and will help him identify other housing options. -Pt still does not feel safe to return home. Unable to reality test w/ respect to delusions - will continue to work on coping skills/relaxation techniques 04/15 - Titrating risperidone to 1mg qAM and 1.5mg qHS to target ongoing delusions. Pt remains pleasant and behaviorally appropriate, but continues to report delusional beliefs about his neighbors, feeling the situation is unchanged - Continue to coordinate with family, who has offered support to the patient - Pt is denying HI toward individuals, but does have a current plan to call his insurance to install security cameras in his apartment 04/16 -paranoia persists but trending more calm and re-directable -continue risperdal unchanged. tolerating well 04/17 -Remains delusional -Increase Risperdal to 1 mg in the morning and 2 mg at night. Patient continues to deny restlessness but will need to watch for evidence of akathisia and will continue to titrate slowly (2) Coronary arteriosclerosis: 2 -with history of stroke--continue Plavix 04/13 -recommend brain MRI as an outpatient, as the patient indicates he has not had one in at least 40 years. Want to rule out recurrent stroke, vascular dementia, or brain lesion that may be contributing to new onset psychosis. -We will refer for outpatient follow-up with PCP to schedule brain MRI, and then to determine if there is a need for a neurology referral. (3) Type II diabetes mellitus: 2/3 -diabetic pharmacy consult, HgbA1C as ordered by pharmacy. 2/ -hemoglobin A1c 5.9%, with estimated average glucose of 123. Continue insulin regimen per diabetic pharmacist. 04/13 -appreciate diabetic pharmacist recommendations. Patient psychosis is negatively impacting his diabetes control, as he has not been checking his blood sugar at home nor taking insulin for months due to delusions of persecution. He will need close follow-up as an outpatient after discharge for ongoing monitoring and management. (4) Hypertension: daily vitals, continue lisinopril 04/12 -BP well controlled. 04/16 -BP low but asymptomatic this AM Inventory Assets Strengths: has already started drawing and reading on unit, concerned family Needs: secure [employer], outpatient providers Risk Factors Assessment Male: Yes : Yes Do You Have Access To A Gun?: No (but multiple fishing knives) Health Problems: No Mental Health Diagnoses: Yes Substance Use Disorders: No Previous Attempt: No Family History of Suicide: No Previous Psychiatric Hospitalization: No Protective Factors Assessment Mosque Beliefs: Yes : No Responsible for Young Children: No Employed: No Supportive Family: Yes Interval History Identifying Information RUFINO HERNANDEZ, who goes by Art, is a 48-year-old M who currently lives alone in [place], has a history of nonspecific depression, and was admitted on 04/11/19 00:07 on a 302 involuntary commitment for paranoia and elopement from [facility] ED. Chief Complaint " I am enjoying it". Review of Systems Sleep Information Total Hours of Sleep: 5.5 Sleep Comments: awake at 0200 -walked in the hallway Meal Information Percent Meal Consumed - Breakfast: 90 Percent Meal Consumed - Lunch: 100 Percent Meal Consumed - Dinner: 100 Nutrition Comment: per meal record Subjective Subjective Patient was seen & assessed and interval progress reviewed with treatment team. Per treatment team, patient has been participating in groups but still appearing paranoid. Scheduled for meeting with christine tomorrow at 0900. He complains of waking last night and was redirected from walking around the unit but denies that he was feeling restless or upset by the redirection. He reports that he continues to feel "positive" but describes continued paranoid ideation about his apartment, paperwork, and security. He states he ultimately wants to move. Reports mild headache last night has resolved. Physical Exam Vital Signs (Past 24 Hours) Last Vital Signs Temp 36.6 C 04/17/19 06:48 Pulse 66 04/17/19 08:07 Resp 18 04/17/19 06:48 BP 113/73 04/17/19 08:07 Pulse Ox 93 04/11/19 01:15 Results & Data Laboratory Results Laboratory Results - last 24 hr 04/16/19 04/16/19 04/16/19 12:37 12:41 17:12 POC Glucose 109 H 97 101 H 04/16/19 04/17/19 20:51 07:41 POC Glucose 140 H 136 H Current Inpatient Medications Current Inpatient Medications: Current Inpatient Medications Acetaminophen (Tylenol) 650 mg PO Q4H PRN PRN Reason: Headache or Minor Fever Stop: 05/11/19 01:42 Last Admin: 04/16/19 19:05 Dose: 650 mg Documented by: Al Hydrox/Mg Hydrox/Simethicone (Maalox) 30 ml PO Q4H PRN PRN Reason: GI Upset Stop: 05/11/19 01:42 Atorvastatin Calcium (Lipitor) [facility] Stop: 05/11/19 08:59 Last Admin: 04/17/19 08:03 Dose: 80 mg Documented by: Bismuth Subsalicylate (Kaopectate) 15 ml PO PRN PRN PRN Reason: Loose Stool Stop: 05/11/19 01:42 Citalopram Hydrobromide (Celexa) 10 [facility] Stop: 05/11/19 09:59 Last Admin: 04/17/19 08:03 Dose: 10 mg Documented by: Clopidogrel Bisulfate (Plavix) 75 mg PO QAM [facility] Stop: 05/11/19 08:59 Last Admin: 04/17/19 08:03 Dose: 75 mg Documented by: Dextrose (Dextrose 50%) 25 - 50 ml IV UD PRN; Protocol PRN Reason: Hypoglycemia Protocol Stop: 05/11/19 04:29 Glucagon (Glucagen) 1 mg IM UD PRN; Protocol PRN Reason: Hypoglycemia Protocol Stop: 05/11/19 04:29 Glucose (Glucose 40%) 15 - 30 gm PO UD PRN; Protocol PRN Reason: Hypoglycemia Protocol Stop: 05/11/19 04:29 Glucose (Dex4 Glucose) 4 - 8 tabs PO UD PRN; Protocol PRN Reason: Hypoglycemia Protocol Stop: 05/11/19 04:29 Lisinopril/HCTZ (Prinzide 20/12.5mg) 1 tab PO QAM AMY Stop: 05/11/19 08:59 Last Admin: 04/17/19 08:04 Dose: 1 tab Documented by: Haloperidol (Haldol) 2.5 mg PO Q6 PRN PRN Reason: Anxiety/Agitation Stop: 05/11/19 11:59 Hydroxyzine HCl (Vistaril) 50 mg PO HSZ PRN PRN Reason: Insomnia Stop: 05/11/19 01:42 Hydroxyzine HCl (Vistaril) 25 mg PO Q4H PRN PRN Reason: Anxiety Stop: 05/11/19 01:42 Insulin Aspart (Novolog Flexpen) 0 units [facility]; Protocol Stop: 05/11/19 07:59 Last Admin: 04/17/19 08:40 Dose: Not Given Documented by: Lorazepam (Ativan) 0.5 mg PO Q6 PRN PRN Reason: Anxiety Stop: 05/11/19 10:00 Magnesium Hydroxide (Milk Of Magnesia) 30 ml PO DAILY PRN PRN Reason: Constipation Stop: 05/11/19 01:42 Miscellaneous (Carbohydrates For Hypoglycemia) 15 - 30 gm PO UD PRN PRN Reason: Hypoglycemia Treatment Stop: 05/11/19 04:29 Miscellaneous Information (Consult Glycemic Management Pharmacy) 1 ea N/A UD PRN PRN Reason: Consult Stop: 05/11/19 04:14 Risperidone (Risperdal) 1 mg PO QAM AMY Stop: 05/16/19 08:59 Last Admin: 04/17/19 08:04 Dose: 1 mg Documented by: Risperidone (Risperdal) 1.5 mg PO HS AMY Stop: 05/15/19 21:59 Last Admin: 04/16/19 21:31 Dose: 1.5 mg Documented by: Sodium Chloride (Huckabay Nasal) 1 - 2 sprays NA PRN PRN PRN Reason: Nasal Dryness/Congestion Stop: 05/11/19 01:42 Mental Health & Subst Abuse Tx Psychiatrist Name of Psychiatrist: [facility] [place] Psychiatrist's Psychiatric Appointment Comment: Walk in hours 8am-3pm Tuesdays, [id number], [place] Public Relations Player Name of Public Relations Player: Luke Arline [facility] Phone Number for Public Relations Player: [phone] Date of Appointment with Public Relations Player: 04/28/19 Time of Appointment with Public Relations Player: 10:00 a.m. Case Management [facility]ment [facility] Primary Care Physician Name Of Family Doctor: Family Practice - Adonay Galdamez PA-C Primary Care Date of Appointment with PCP: 04/26/19 Time of Appointment with PCP: 9:30 am Provider Appointment Comment: [id number], [place] [id number] Neurologist Name of Neurologist: Yas Sommer PA-C Neurologist's Date of Appointment with Neurologist: 04/27/19 Time of Appointment with Neurologist: 10:40 Neurology Appointment Comment: Appointment at [address], [place] [address] Contact Information Discharge Discharge [address]: [address] [place] [address] [place] [id number] (1) Psychotic disorder Psychosis type: unspecified psychosis type Qualified Code(s): F29 - Unspecified psychosis not due to a substance or known physiological condition
--- NOTE | 2019-04-17 14:55 | Pharmacy Report ---
Pharmacy Glycemic Short Note 2 - Date of Service April 17, 2019 - Glycemic Short BSG Results (Last 24 hours): 04/16/19 04/16/19 04/17/19 17:12 20:51 07:41 POC Glucose 101 H 140 H 136 H 04/17/19 11:25 POC Glucose 128 H ASSESSMENT: * Patient received total of 6 units of insulin yesterday, no basal insulin * Fasting BSG 136 mg/dL - continue to hold basal insulin * Post prandial BSGs at goal * See CDE note for more information PLAN FOR INPATIENT GLYCEMIC CONTROL: * Basal insulin * hold * Bolus insulin * NovoLog per scale ACHS or Q6hrs while NPO * Goal Range: Low 110 mg/dL - High 140 mg/dL * Correction Factor: 30 mg/dL/unit * Nutritional / Prandial insulin per carb ratio of 1 unit per 14 grams CHO consumed Thank you. PLAN FOR DISCHARGE: * A1C of 5.9% indicates pre-diabetes range - per report from patient, he has not taken any insulin in months and has managed DM with healthy lifestyle/exercise/weight loss * Would ideally recommend SMBGs at home to better assess insulin needs/BSG trends, however patient refusing at this time to monitor. Hopefully try and work with patient to at least check BSGs once daily * Will continue to follow - at this point hesitant to give any insulin post discharge and encourage continuation of healthy lifestyle
[2019-04-17] MEDS: risperiDONE 2 MG TABLET PO SCH (21:52)
[2019-04-18] MEDS: CITALOPRAM 20 MG TAB PO SCH (07:33)
[2019-04-18] MEDS: risperiDONE 1 MG TABLET PO SCH ×2 (07:34→21:22)
[2019-04-18] MEDS: ATORVASTATIN 40 MG TAB PO SCH (07:34)
[2019-04-18] MEDS: LISINOPRIL/HCTZ 20/12.5MG 1 TAB TAB PO SCH (07:34)
[2019-04-18] MEDS: CLOPIDOGREL BISULFATE 75 MG TAB PO SCH (07:34)
[2019-04-18] MEDS: INSULIN ASPART 100 UNITS/ML 3 ML PEN SC SCH ×4 (09:04→21:18)
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
[2019-04-18] MEDS: risperiDONE 2 MG TABLET PO SCH (21:24)
[2019-04-19] MEDS: CITALOPRAM 20 MG TAB PO SCH (07:38)
[2019-04-19] MEDS: ATORVASTATIN 40 MG TAB PO SCH (07:39)
[2019-04-19] MEDS: CLOPIDOGREL BISULFATE 75 MG TAB PO SCH (07:40)
[2019-04-19] MEDS: LISINOPRIL/HCTZ 20/12.5MG 1 TAB TAB PO SCH ×2 (07:53→08:16)
[2019-04-19] MEDS: risperiDONE 1 MG TABLET PO SCH ×2 (07:54→15:14)
[2019-04-19] MEDS: INSULIN ASPART 100 UNITS/ML 3 ML PEN SC SCH ×4 (08:47→21:36)
--- NOTE | 2019-04-19 09:16 | Pharmacy Report ---
Glycemic Control Progress Note - Date of Service April 19, 2019 - Scope Glycemic Pharmacist consulted for glycemic control to write orders per [facility] inpatient glycemic control protocol. - Objective Accuchecks BSG(last 24 hours):: 04/18/19 04/18/19 04/18/19 11:32 17:25 21:11 POC Glucose 125 H 137 H 137 H 04/19/19 07:22 POC Glucose 127 H HbA1c:: Hemoglobin A1c 5.9 % (4.5-5.6) H 04/11/19 07:00 - Recent Pertinent Medications The patient is currently receiving: * Basal insulin: Lantus -- units every -- hours * Correctional Insulin: Novolog Correction per scale ACHS Goal Range: Low 110 mg/dL - High 140 mg/dL Correction Factor: 30 mg/dL/unit * Prandial insulin: Per carb ratio of 1 unit per 14 grams CHO consumed - Outpatient Anti-Diabetic Meds noncompliant - Assessment & Plan ASSESSMENT: * See progress note from 04/17/2019 for more background info, in short: * Pt receiving SQ basal bolus insulin regimen for hyperglycemia secondary to baseline DM (outpatient regimen on hold). * Patient is currently receiving an average of <10 units of insulin per day * 0 units of basal insulin * 4 units of prandial/correctional insulin * BSGs ranging 122 - 137 mg/dl over the past 24hrs * Changes needed to insulin regimen: * AM Fasting BSG = 127 mg/dl. This is in goal range for patient based on inpatient targets and co-morbidities. Therefore Basal insulin will be continued * Post-prandial BSGs are in range therefore no changes needed to CF/CR. * Total daily dose = <10 units. PLAN FOR INPATIENT GLYCEMIC CONTROL: * Continuing correction factor of 30 mg/dl/unit * Continuing carb ratio of 1 unit per 14 grams CHO consumed * Continuing goal range of Low 110 mg/dL - High 140 mg/dL RECOMMENDATIONS FOR DISCHARGE: * A1C of 5.9% indicates pre-diabetes range - per report from patient, he has not taken any insulin in months and has managed DM with healthy lifestyle/exercise/weight loss * Would ideally recommend SMBGs at home to better assess insulin needs/BSG trends, however patient refusing at this time to monitor. Hopefully try and work with patient to at least check BSGs once daily * Will continue to follow - at this point hesitant to give any insulin post discharge and encourage continuation of healthy lifestyle Thank you.
--- NOTE | 2019-04-19 12:22 | Psychiatric Progress Note ---
Date of Service April 19, 2019 Impression / Recommendations Impression 48 yo male with a history of depression and 6-8 months of worsening psychosis who presented on referral from [facility] ER with paranoia without clear cause (7 yrs out from [facility], no prior psychosis, negative tox). He was admitted on a 302 involuntary commitment with a petition from his brother, and is on a 303 as of 04/14/2019. 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 He has been started on risperidone and has responded, although he remains delusional, he is less focused on his paranoia. He is now stating he thinks he could return to his apartment temporarily while arranging new housing. He had a meeting with his brother and LUIS who are supportive. He is agreeing to outpatient treatment, and we are making preparations for discharge as early as tomorrow, if he continues to improve. (1) Psychotic disorder: 2--The patient was [facility] to [facility] on q15 min checks (behavioral with suicide precautions) for safety. The patient will participate in group, recreational, and milieu therapies and will be offered additional individual and family sessions as clinically appropriate. Discussed antipsychotic medication with the patient to more acutely address symptoms. Refuses Risperdal at this time. Ordered Haldol and Ativan prn should he escalate throughout day. By history there is some affective component and he agrees to resume Celexa 10 mg only at this time. Will order and seek additional collateral over course of stay to refine diagnosis. 2/4--continue citalopram 10 mg daily, and add risperidone 1 mg twice daily to target psychosis. Check fasting lipid profile tomorrow for baseline on an atypical. Already had hemoglobin A1c checked here. Continue to encourage group attendance and participation. -Family meeting with brothers. Review safety plan, including plan to secure weapons in his home prior to discharge. -Refer for outpatient psychiatric care (pillowcase maker, [facility] for psychiatry and therapy). Family meeting with brother -Continue inpatient treatment on a 302 involuntary commitment, and continue to gather information toward the need for further commitment. 25--continue citalopram 10 mg daily and risperidone 1 mg twice daily. Fasting lipid profile within normal limits, hemoglobin A1c 5.9%. -Patient remains delusional, and given risks of premature discharge and demonstrated inability to maintain health and safety as above, will file for a 303 involuntary commitment. -Continue medically necessary private room for psychosis and significant paranoia, fears that unknown others are conspiring against him. -Family meeting with brother today. -Refer for outpatient treatment to include pillowcase maker, psychiatry, and therapy. -MoCA score 19/30 - cognition may be negatively impacted by psychosis and anxiety, but will need ongoing monitoring and retest once psychosis resolved as may be underlying cognitive disorder. 04/14--303 granted. -Family supportive and will help him identify other housing options. -Pt still does not feel safe to return home. Unable to reality test w/ respect to delusions - will continue to work on coping skills/relaxation techniques 04/15 - Titrating risperidone to 1mg qAM and 1.5mg qHS to target ongoing delusions. Pt remains pleasant and behaviorally appropriate, but continues to report delusional beliefs about his neighbors, feeling the situation is unchanged - Continue to coordinate with family, who has offered support to the patient - Pt is denying HI toward individuals, but does have a current plan to call his insurance to install security cameras in his apartment 04/16 -paranoia persists but trending more calm and re-directable -continue risperdal unchanged. tolerating well 04/17 -Remains delusional -Increase Risperdal to 1 mg in the morning and 2 mg at night. Patient continues to deny restlessness but will need to watch for evidence of akathisia and will continue to titrate slowly. 04/18 -No evidence of restlessness on exam today. Continue risperidone. Arranging outpatient treatment in the [place] area. 04/19 - Patient continues to talk about hunting and does not accept that he is not legally allowed to own, purchase or possess a firearm (as a result of his involuntary commitment). Will ask the social services specialist to advise his brother of this. - Patient remains delusional but is less focused on concerns about his apartment, stating he "knows I have to live there for now." - Continue risperidone, and will consolidate to 3 mg at bedtime at discharge to improve compliance. - [place] [facility] [place] [facility] for outpatient psychiatric treatment and therapy. Referring to [facility] for case management services. (2) Coronary arteriosclerosis: 04/11 -with history of stroke--continue Plavix 04/13 -recommend brain MRI as an outpatient, as the patient indicates he has not had one in at least 4 years. Want to rule out recurrent stroke, vascular dementia, or brain lesion that may be contributing to new onset psychosis. -We will refer for outpatient follow-up with PCP to schedule brain MRI, and then to determine if there is a need for a neurology referral. 04/19 -outpatient neurology appointment scheduled for 04/27/2019. PCP appointment scheduled for 04/26/2019. (3) Type II diabetes mellitus: 04/11 -diabetic pharmacy consult, HgbA1C as ordered by pharmacy. 04/12 -hemoglobin A1c 5.9%, with estimated average glucose of 123. Continue insulin regimen per diabetic pharmacist. 04/13 -appreciate diabetic pharmacist recommendations. Patient psychosis is negatively impacting his diabetes control, as he has not been checking his blood sugar at home nor taking insulin for months due to delusions of persecution. He will need close follow-up as an outpatient after discharge for ongoing monitoring and management. (4) Hypertension: daily vitals, continue lisinopril 04/12 -BP well controlled. 04/16 -BP low but asymptomatic this AM Inventory Assets Strengths: has already started drawing and reading on unit, concerned family Needs: secure knives, outpatient providers Risk Factors Assessment Male: Yes : Yes Do You Have Access To A Gun?: No (but multiple fishing knives) Health Problems: No Mental Health Diagnoses: Yes Substance Use Disorders: No Previous Attempt: No Family History of Suicide: No Previous Psychiatric Hospitalization: No Protective Factors Assessment Muslim Beliefs: Yes : No Responsible for Young Children: No Employed: No Supportive Family: Yes Interval History Identifying Information RUFINO HERNANDEZ, who goes by Art, is a 48-year-old M who currently lives alone in [place], has a history of nonspecific depression, and was admitted on 04/11/19 00:07 on a 302 involuntary commitment for paranoia and elopement from [facility] ED. he is on a 303 involuntary commitment as of 04/14/2019. Chief Complaint "Nikky down, they messed up my lunch order yesterday". Review of Systems Sleep Information Total Hours of Sleep: 4.5 Meal Information Percent Meal Consumed - Breakfast: 100 Percent Meal Consumed - Lunch: 100 Percent Meal Consumed - Dinner: 100 Nutrition Comment: per meal record Subjective Subjective Patient was seen & assessed and interval progress reviewed with nursing and social work. Staff report he has been paranoid and irritable at times, with complaints about food/menu choices. He became very upset after he received the wrong soup for lunch yesterday, stating he was not going to eat here again. His landlord was going to come have him sign his lease, which she has been focused on, stating he does not trust her. He is attending and participating in groups, and has been in good behavioral control. On my assessment, the patient continues to express displeasure that his lunch order was "messed up" yesterday, as he got broth instead of the corn chowder he'd requested. He continues to report suspicion of his visual display manager, saying she has "lied to me so many times," but is willing to meet with her to sign necessary paperwork. States he is trying not to dwell on the negatives and instead focusing on plans for the future, including volunteering at multiple places, new recipes he wants to try, and is even thinking of "becoming an roller helper, converting a bus into a kitchen, a BBQ place." He talks about wanting to go hunting for coyotes, and when advised that he cannot own, purchase or possess firearms in [place] due to his involuntary commitment, he insists he was not committed, then demands to know "who did that to me?" He refuses to discuss a plan to secure firearms, stating the laws need to be changed and how are people going to defend the country with "these anti gun laws." Then says he may run for Congress, "always wanted to do that." He states he does not want to return to his current apartment "due to the trickery going on there," but recognizes it is his only option at this point, and says he will work with his brother to find a new place to live. He thinks he needs to "move to a different county, go to a different oriental orthodox, so I'm not under my brother's eye, or my family's eye." He says he needs to get away from his brother because "there's rules, I'm an adult, you don't put your thumb on anybody." He states his brother is "nosy," as he was trying to help the patient assess his finances, and he doesn't think his brother should ask how much his truck payments are. He insists he had paperwork that stated his truck was paid off, and "I know I'm right." He says "if it gets repossessed, it gets repossessed, but I'll have an ip technology transactions attorney fight it all the way." He says he is going to get a corporate investigator and will make the bank pay him for the research if they were trying to cheat him. He denies SI, "I was never suicidal." Physical Exam Psychiatric Orientation: alert and cooperative Apperance: appropriately dressed, appropriately groomed and appeared stated age Eye Contact: good eye contact Motor Behavior: steady gait and station and no abnormal motor movements Speech: normal rate/rhythm/volume of speech Affect: + irritable affect (at times, when discussing "interference" but his family and others) "pretty good." Thought Process: + circumstantial thought process (mildly loose associations, able to clarify when asked) Thought Content: + paranoid and + delusions but less focused on them Suicidal Thoughts: denies suicidal thoughts Homicidal Thoughts: denies homicidal thoughts Hallucinations: no auditory hallucinations and no visual hallucinations Cognition: recent memory grossly intact, attention grossly intact and language grossly intact Insight: + limited insight Judgement: + limited judgement Vital Signs (Past 24 Hours) Last Vital Signs Temp 36.6 C 04/19/19 06:52 Pulse 80 04/19/19 06:53 Resp 18 04/19/19 06:52 BP 120/75 04/19/19 07:45 Pulse Ox 93 04/11/19 01:15 Results & Data ([facility]) Laboratory Results Laboratory Results - last 24 hr 04/18/19 04/18/19 04/19/19 17:25 21:11 07:22 POC Glucose 137 H 137 H 127 H 04/19/19 11:26 POC Glucose 118 H Current Inpatient Medications Current Inpatient Medications: Current Inpatient Medications Acetaminophen (Tylenol) 650 mg PO Q4H PRN PRN Reason: Headache or Minor Fever Stop: 05/11/19 01:42 Last Admin: 04/16/19 19:05 Dose: 650 mg Documented by: Al Hydrox/Mg Hydrox/Simethicone (Maalox) 30 ml PO Q4H PRN PRN Reason: GI Upset Stop: 05/11/19 01:42 Atorvastatin Calcium (Lipitor) 80 mg PO [facility] Stop: 05/11/19 08:59 Last Admin: 04/19/19 07:39 Dose: 80 mg Documented by: Bismuth Subsalicylate (Kaopectate) 15 ml PO PRN PRN PRN Reason: Loose Stool Stop: 05/11/19 01:42 Citalopram Hydrobromide (Celexa) 10 mg PO [facility] Stop: 05/11/19 09:59 Last Admin: 04/19/19 07:38 Dose: 10 mg Documented by: Clopidogrel Bisulfate (Plavix) 75 mg PO [facility] Stop: 05/11/19 08:59 Last Admin: 04/19/19 07:40 Dose: 75 mg Documented by: Dextrose (Dextrose 50%) 25 - 50 ml IV UD PRN; Protocol PRN Reason: Hypoglycemia Protocol Stop: 05/11/19 04:29 Glucagon (Glucagen) 1 mg IM UD PRN; Protocol PRN Reason: Hypoglycemia Protocol Stop: 05/11/19 04:29 Glucose (Glucose 40%) 15 - 30 gm PO UD PRN; Protocol PRN Reason: Hypoglycemia Protocol Stop: 05/11/19 04:29 Glucose (Dex4 Glucose) 4 - 8 tabs PO UD PRN; Protocol PRN Reason: Hypoglycemia Protocol Stop: 05/11/19 04:29 Lisinopril/HCTZ (Prinzide 20/12.5mg) 1 tab PO [facility] Stop: 05/11/19 08:59 Last Admin: 04/19/19 08:16 Dose: Not Given Documented by: Haloperidol (Haldol) 2.5 mg PO Q6 PRN PRN Reason: Anxiety/Agitation Stop: 05/11/19 11:59 Hydroxyzine HCl (Vistaril) 50 mg PO HSZ PRN PRN Reason: Insomnia Stop: 05/11/19 01:42 Hydroxyzine HCl (Vistaril) 25 mg PO Q4H PRN PRN Reason: Anxiety Stop: 05/11/19 01:42 Insulin Aspart (Novolog Flexpen) 0 units SC [facility]; Protocol Stop: 05/11/19 07:59 Last Admin: 04/19/19 08:47 Dose: Not Given Documented by: Lorazepam (Ativan) 0.5 mg PO Q6 PRN PRN Reason: Anxiety Stop: 05/11/19 10:00 Magnesium Hydroxide (Milk Of Magnesia) 30 ml PO DAILY PRN PRN Reason: Constipation Stop: 05/11/19 01:42 Miscellaneous (Carbohydrates For Hypoglycemia) 15 - 30 gm PO UD PRN PRN Reason: Hypoglycemia Treatment Stop: 05/11/19 04:29 Miscellaneous Information (Consult Glycemic Management Pharmacy) 1 ea N/A UD PRN PRN Reason: Consult Stop: 05/11/19 04:14 Risperidone (Risperdal) 1 mg PO QAM AMY Stop: 05/16/19 08:59 Last Admin: 04/19/19 07:54 Dose: 1 mg Documented by: Risperidone (Risperdal) 2 mg PO HS AMY Stop: 05/17/19 21:59 Last Admin: 04/18/19 21:24 Dose: 2 mg Documented by: Sodium Chloride (Ceres Nasal) 1 - 2 sprays NA PRN PRN PRN Reason: Nasal Dryness/Congestion Stop: 05/11/19 01:42 Mental Health & Subst Abuse Tx Psychiatrist Name of Psychiatrist: KATH Barajas Psychiatrist's Psychiatric Appointment Comment: Walk in hours 8am-3pm Tuesdays, [address] [facility] [place] Motor Vehicles Inspector Name of Motor Vehicles Inspector: [facility] Phone Number for Motor Vehicles Inspector: [phone] Date of Appointment with Motor Vehicles Inspector: 04/28/19 Time of Appointment with Motor Vehicles Inspector: 10:00 a.m. Case Management Appointment Comment: [facility] Post Discharge Appointments Primary Care Physician Name Of Family Doctor: Family Practice - Adonay Galdamez PA-C Primary Care Date of Appointment with PCP: 04/26/19 Time of Appointment with PCP: 9:30 am Provider Appointment Comment: [phone] [place] [address] Neurologist Name of Neurologist: Yas Sommer PA-C Neurologist's Date of Appointment with Neurologist: 04/27/19 Time of Appointment with Neurologist: 10:40 Neurology Appointment Comment: Appointment at [address] [place] [address] , [place] [address] Contact Information Discharge Discharge [address]: [address] [place] [address], [place] [address] (1) Psychotic disorder Psychosis type: unspecified psychosis type Qualified Code(s): F29 - Unspecified psychosis not due to a substance or known physiological condition
[2019-04-19] MEDS: risperiDONE 2 MG TABLET PO SCH (21:39)
[2019-04-20] MEDS: CITALOPRAM 20 MG TAB PO SCH (08:41)
[2019-04-20] MEDS: ATORVASTATIN 40 MG TAB PO SCH (08:42)
[2019-04-20] MEDS: LISINOPRIL/HCTZ 20/12.5MG 1 TAB TAB PO SCH (08:43)
[2019-04-20] MEDS: risperiDONE 1 MG TABLET PO SCH (08:43)
[2019-04-20] MEDS: CLOPIDOGREL BISULFATE 75 MG TAB PO SCH (08:43)
[2019-04-20] MEDS: INSULIN ASPART 100 UNITS/ML 3 ML PEN SC SCH ×2 (08:46→13:01)
--- NOTE | 2019-04-20 09:05 | Discharge Summary ---
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 PCP,NO Other Interventions: PSY Interdisciplinary Discharge Planning Last Done: 04/19/19 10:04 Coding Level of Care Code 48261 D/C day mgmt > 30 min Diagnoses Delusional disorder, persecutory type F22 Depressive disorder, not elsewhere classified F32.9 Coronary arteriosclerosis I25.10 Type II diabetes mellitus E11.9 Hypertension I10
== END 2019-04-20 15:55 | disposition home or self-care (01) | DRG 885 ==
LOC: 3S 04-11 00:07 → SUATTDRO 04-11 00:07 → 3S 04-11 14:42

== ENCOUNTER 2019-12-28 11:30 | Inpatient (IN) ==
[2019-12-28 12:31] LABS: Appearance Urine Clear (Clear); Bilirubin Urine Negative (Negative); Blood Urine Negative (Negative); Color Urine Yellow; Glucose Urine UA Negative (Negative); Ketones Urine Negative (Negative); Leukocyte Esterase Urine Negative (Negative); Nitrite Urine Negative (Negative); Protein Urine Negative (Negative); Specific Gravity Urine 1.014 (1.000-1.030); Urobilinogen Urine Negative (Negative)
--- NOTE | 2019-12-28 12:35 | Emergency Department Note ---
Impression & Plan Paranoid delusion, Anxiety ED Provider Note NAME: RUFINO HERNANDEZ AGE: 49 SEX: M : 1970 ARRIVES VIA: Ambulance INFORMANT: Patient, ED PROVIDER(S): Gigi Hinkle DO CHIEF COMPLAINT: Mental health problems HPI: The patient is a 49-year-old male who presented to the emergency department at the request of his primary care physician for an evaluation of mental health issues. The patient describes episodes that been going on for the last few weeks. He has very severe paranoia as well as some delusional thoughts. He feels as though he is being poisoned at his home. He relates multiple stories of how "strangers" are getting into his home and changing his food. He states that he has been humiliated and forced the dog food as well as cat food. The patient denies having any chest pain or difficulty breathing. He does state that he has a metallic taste in his mouth that he thinks is boric acid wheezing. Patient denies having any fevers or lower extremity swelling. He denies having any abdominal pain. The patient states that he has been compliant with all of his medications including his mental health medications. He states that he is not seeing a therapist recently. He states his visit to his family doctor today was to see if he could be tested for boric acid poisoning. He was sent to the emergency department for further evaluation although the patient at this time is only interested in medical evaluation. He has not experiencing any suicidal homicidal ideation. ROS: See above HPI for pertinent positives & negatives. A total of 10 systems reviewed and were otherwise negative. PAST MEDICAL HISTORY: See Below PAST SURGICAL HISTORY: See Below FAMILY HISTORY: See Below SOCIAL HISTORY: See Below HOME MEDICATIONS: See Below ALLERGIES: See Below VITALS: See Below PHYSICAL EXAMINATION: GENERAL: The patient is awake and alert. He is somewhat anxious appearing. EYES: The conjunctivae are clear. The pupils are round and reactive. EARS, NOSE, MOUTH AND THROAT: The nose is without any evidence of any deformity. Mucous membranes are moist. NECK: The neck is nontender and supple. RESPIRATORY: Normal respiratory effort is noted there is no evidence of wheezing rhonchi or rales CARDIOVASCULAR: Regular rate and rhythm noted there no murmurs rubs or gallops normal S1 normal S2. GASTROINTESTINAL: The abdomen is soft. Abdomen is nontender. MUSCULOSKELETAL/EXTREMITIES: There is no evidence of gross deformity full range of motion is noted in the hips and shoulders. SKIN: There is no obvious evidence of any rash. There are no petechiae, pallor or cyanosis noted. NEUROLOGIC: Patient is awake alert and oriented x3 strength is symmetric patellar reflexes are 2+ bilaterally PSYCH: The patient is awake and alert. He is somewhat guarded appearing and anxious. He makes good eye contact for most of the evaluation. Currently the patient is denying suicidal or homicidal ideation. MEDICAL DECISION MAKING: The patient is a 49-year-old male who presented to the emergency department for an evaluation of mental health issues. The patient had paranoid delusions that he was being poisoned by people that were coming into his home. He had very vivid delusions which included people stealing his possessions as well as trying to poison him by switching his foodstuffs. The patient went to see his primary care physician. He was then referred to the emergency department for further evaluation. The patient was medically cleared in the emergency department. He was reevaluated multiple times. The patient did not have very good insight into his overall condition. He was evaluated by the mental health continuous pillowcase cutter. The patient did not wish to stay in the hospital as a voluntary psychiatric admission. I do feel the patient may be a threat to himself as well as others given his current delusional state. For this reason a 302 petition was obtained and I did uphold the 302 petition. The patient was evaluated by [facility] and was felt to be a good candidate for there unit. 302 was filled out by myself and signed by myself. Triage Nursing notes reviewed. Prior medical records reviewed Vital Signs: reviewed and remarkable for elevated blood pressure. Differential diagnosis: Mood disorder, infection, hypoglycemia, electrolyte abnormalities, cardiac sources, intracerebral event, toxicologic, trauma, neurologic, as well as other pathologies. ER treatment provided: See below Diagnostics interpreted by me: ECG: none Laboratory studies: As stated above and show below. Imaging studies: See below Consultation(s): none Past Med/Surg History Medical History Coronary arteriosclerosis CVA (cerebral vascular accident) Delusional disorder, persecutory type Depressive disorder, not elsewhere classified Hypertension Type II diabetes mellitus Social History Smoking Status: Never smoker Preferred Language: Mac[place] Communication Ability: Effective Supervisor Phosphatic Fertilizer Required: No Beliefs That Will Affect Care: None Feels Safe at Home: No Assistive Devices: Glasses Allergies Allergies Allergy/AdvReac Type Severity Reaction Status Date / Time cat dander Allergy Wheezing Verified 12/28/19 11:43 Home Meds Home Medications Medication Instructions Recorded Confirmed Tresiba FlexTouch U-200 160 unit SUBCUT DAILY 04/11/19 12/28/19 atorvastatin [Lipitor] 80 mg PO DAILY 04/11/19 12/28/19 clopidogrel [Plavix] 75 mg PO DAILY 04/11/19 12/28/19 insulin lispro [Humalog KwikPen 32 unit SUBCUT PM 04/11/19 12/28/19 Insulin] lisinopril-hydrochlorothiazide 1 tab PO DAILY 04/11/19 12/28/19 Previous Rx's Medication Instructions Recorded citalopram 10 mg PO QAM #30 tab 04/20/19 risperidone 3 mg PO HS #30 tab 04/20/19 Results & Data (ED) Vital Signs Vital Signs - 24 hr 12/28/19 11:46 12/28/19 15:06 12/28/19 16:53 Temperature 37.7 C H Temperature Source Oral Pulse Rate 99 H Pulse Rate [Finger] 80 78 Respiratory Rate 18 20 16 Blood Pressure 157/107 H Blood Pressure [Left Arm] 140/91 Blood Pressure [Right Arm] 159/97 H Blood Pressure Mean 123 Blood Pressure Mean [Left Arm] 107 Blood Pressure Mean [Right Arm] 117 Pulse Oximetry 95 98 97 Oxygen Delivery Method Room Air Room Air Room Air Sepsis Recent Fever Within 48 Hours No Sepsis New/Unexplained Change in Mental Status No Sepsis Action Taken by Nursing No Action Required Home Medications Current Medication List: was personally reviewed by me Laboratory Data Attestation: I reviewed the patient's lab results. Result diagrams: 12/28/19 12:35 12/28/19 12:35 Lab Results 12/28/19 12/28/19 12/28/19 Range/Units 11:50 11:50 12:35 WBC 10.79 (4.8-10.8) K/uL RBC 4.95 (4.7-6.1) M/uL Hgb 15.1 (14.0-18.0) g/dL Hct 44.9 (42-52) % MCV 90.7 (80-100) fL MCH 30.5 (25-34) pg MCHC 33.6 (32-36) g/dL RDW Std Deviation 41.9 (36.4-46.3) fL RDW Coeff of [place] 12.5 (11.5-14.5) % Plt Count 313 (130-400) K/uL MPV 9.7 (7.4-10.4) fL Immature Gran % (Auto) 0.4 % Neut % (Auto) 76.7 % Lymph % (Auto) 13.7 % Lake % (Auto) 7.2 % Eos % (Auto) 1.7 % Baso % (Auto) 0.3 % Neut # (Auto) 8.28 H (1.4-6.5) K/uL Lymph # (Auto) 1.48 (1.2-3.4) K/uL Lake # (Auto) 0.78 H (0.11-0.59) K/uL Eos # (Auto) 0.18 (0-0.5) K/uL Baso # (Auto) 0.03 (0-0.2) K/uL Immature Gran # (Auto) 0.04 H (0.00-0.02) K/uL Sodium (136-145) mmol/L Potassium (3.5-5.1) mmol/L Chloride (98-107) mmol/L Carbon Dioxide (21-32) mmol/L Anion Gap (3-11) BUN (7-18) mg/dl Creatinine (0.6-1.4) mg/dl Est Cr Clr Drug Dosing ml/min Est GFR ( Amer) Est GFR (Non-Af Amer) BUN/Creatinine Ratio (10-20) Glucose (70-99) mg/dl Calcium (8.5-10.1) mg/dl Total Bilirubin (0.2-1) mg/dl AST (15-37) U/L ALT (12-78) U/L Alkaline Phosphatase (45-117) U/L Total Protein (6.4-8.2) gm/dl Albumin (3.4-5.0) gm/dl Globulin (2.5-4.0) gm/dl Albumin/Globulin Ratio (0.9-2) TSH (0.300-4.500) uIu/ml Urine Color Yellow Urine Appearance Clear (Clear) Urine pH 6.0 (4.5-7.5) Ur Specific [place] 1.014 (1.000-1.030) Urine Protein Negative (Negative) Urine Glucose (UA) Negative (Negative) Urine Ketones Negative (Negative) Urine Blood Negative (Negative) Urine Nitrite Negative (Negative) Urine Bilirubin Negative (Negative) Urine Urobilinogen Negative (Negative) Ur Leukocyte Esterase Negative (Negative) Salicylates (2.8-20) mg/dl Urine Opiates Screen Neg (Neg) Ur Methadone, Qual Neg (Neg) Acetaminophen (10-30) ug/ml Urine Barbiturates Neg (Neg) Ur Phencyclidine (PCP) Neg (Neg) U Amphetamin/Meth Scrn Neg (Neg) MDMA (Ecstasy) Screen Neg (Neg) U Benzodiazepines Scrn Neg (Neg) Ur Cocaine Metabolite Neg (Neg) U Marijuana (THC) Screen Neg (Neg) Ethyl Alcohol mg/dL (0-3) mg/dl COVID-19 Eval Order SARS-CoV-2, RNA, NAAT (NEGATIVE) 12/28/19 12/28/19 12/28/19 Range/Units 12:35 12:35 12:35 WBC (4.8-10.8) K/uL RBC (4.7-6.1) M/uL Hgb (14.0-18.0) g/dL Hct (42-52) % MCV (80-100) fL MCH (25-34) pg MCHC (32-36) g/dL RDW Std Deviation (36.4-46.3) fL RDW Coeff of [place] (11.5-14.5) % Plt Count (130-400) K/uL MPV (7.4-10.4) fL Immature Gran % (Auto) % Neut % (Auto) % Lymph % (Auto) % Lake % (Auto) % Eos % (Auto) % Baso % (Auto) % Neut # (Auto) (1.4-6.5) K/uL Lymph # (Auto) (1.2-3.4) K/uL Lake # (Auto) (0.11-0.59) K/uL Eos # (Auto) (0-0.5) K/uL Baso # (Auto) (0-0.2) K/uL Immature Gran # (Auto) (0.00-0.02) K/uL Sodium 140 (136-145) mmol/L Potassium 3.9 (3.5-5.1) mmol/L Chloride 108 H (98-107) mmol/L Carbon Dioxide 26 (21-32) mmol/L Anion Gap 6.0 (3-11) BUN 10 (7-18) mg/dl Creatinine 1.02 (0.6-1.4) mg/dl Est Cr Clr Drug Dosing 116.8 ml/min Est GFR ( Amer) 98.2 Est GFR (Non-Af Amer) 84.7 BUN/Creatinine Ratio 10.1 (10-20) Glucose 126 H (70-99) mg/dl Calcium 9.0 (8.5-10.1) mg/dl Total Bilirubin 0.4 (0.2-1) mg/dl AST 51 H (15-37) U/L ALT 109 H (12-78) U/L Alkaline Phosphatase 98 (45-117) U/L Total Protein 8.0 (6.4-8.2) gm/dl Albumin 3.6 (3.4-5.0) gm/dl Globulin 4.4 H (2.5-4.0) gm/dl Albumin/Globulin Ratio 0.8 L (0.9-2) TSH 0.664 (0.300-4.500) uIu/ml Urine Color Urine Appearance (Clear) Urine pH (4.5-7.5) Ur Specific [place] (1.000-1.030) Urine Protein (Negative) Urine Glucose (UA) (Negative) Urine Ketones (Negative) Urine Blood (Negative) Urine Nitrite (Negative) Urine Bilirubin (Negative) Urine Urobilinogen (Negative) Ur Leukocyte Esterase (Negative) Salicylates < 1.7 L (2.8-20) mg/dl Urine Opiates Screen (Neg) Ur Methadone, Qual (Neg) Acetaminophen < 2 L (10-30) ug/ml Urine Barbiturates (Neg) Ur Phencyclidine (PCP) (Neg) U Amphetamin/Meth Scrn (Neg) MDMA (Ecstasy) Screen (Neg) U Benzodiazepines Scrn (Neg) Ur Cocaine Metabolite (Neg) U Marijuana (THC) Screen (Neg) Ethyl Alcohol mg/dL < 3.0 (0-3) mg/dl COVID-19 Eval Order SARS-CoV-2, RNA, NAAT (NEGATIVE) 12/28/19 12/28/19 Range/Units 15:35 15:35 WBC (4.8-10.8) K/uL RBC (4.7-6.1) M/uL Hgb (14.0-18.0) g/dL Hct (42-52) % MCV (80-100) fL MCH (25-34) pg MCHC (32-36) g/dL RDW Std Deviation (36.4-46.3) fL RDW Coeff of [place] (11.5-14.5) % Plt Count (130-400) K/uL MPV (7.4-10.4) fL Immature Gran % (Auto) % Neut % (Auto) % Lymph % (Auto) % Lake % (Auto) % Eos % (Auto) % Baso % (Auto) % Neut # (Auto) (1.4-6.5) K/uL Lymph # (Auto) (1.2-3.4) K/uL Lake # (Auto) (0.11-0.59) K/uL Eos # (Auto) (0-0.5) K/uL Baso # (Auto) (0-0.2) K/uL Immature Gran # (Auto) (0.00-0.02) K/uL Sodium (136-145) mmol/L Potassium (3.5-5.1) mmol/L Chloride (98-107) mmol/L Carbon Dioxide (21-32) mmol/L Anion Gap (3-11) BUN (7-18) mg/dl Creatinine (0.6-1.4) mg/dl Est Cr Clr Drug Dosing ml/min Est GFR ( Amer) Est GFR (Non-Af Amer) BUN/Creatinine Ratio (10-20) Glucose (70-99) mg/dl Calcium (8.5-10.1) mg/dl Total Bilirubin (0.2-1) mg/dl AST (15-37) U/L ALT (12-78) U/L Alkaline Phosphatase (45-117) U/L Total Protein (6.4-8.2) gm/dl Albumin (3.4-5.0) gm/dl Globulin (2.5-4.0) gm/dl Albumin/Globulin Ratio (0.9-2) TSH (0.300-4.500) uIu/ml Urine Color Urine Appearance (Clear) Urine pH (4.5-7.5) Ur Specific [place] (1.000-1.030) Urine Protein (Negative) Urine Glucose (UA) (Negative) Urine Ketones (Negative) Urine Blood (Negative) Urine Nitrite (Negative) Urine Bilirubin (Negative) Urine Urobilinogen (Negative) Ur Leukocyte Esterase (Negative) Salicylates (2.8-20) mg/dl Urine Opiates Screen (Neg) Ur Methadone, Qual (Neg) Acetaminophen (10-30) ug/ml Urine Barbiturates (Neg) Ur Phencyclidine (PCP) (Neg) U Amphetamin/Meth Scrn (Neg) MDMA (Ecstasy) Screen (Neg) U Benzodiazepines Scrn (Neg) Ur Cocaine Metabolite (Neg) U Marijuana (THC) Screen (Neg) Ethyl Alcohol mg/dL (0-3) mg/dl COVID-19 Eval Order Covid19 IDNow [facility] SARS-CoV-2, RNA, NAAT NEGATIVE (NEGATIVE) Imaging Data Radiologist's Impression: Patient: RUFINO HERNANDEZdmsierra Date: 12/28/19 MR#: [id number] [address] Acct ID:[id number]: Date: 1970[facility] Zip: [place] [address] Age: 49Location: ED Sex: MRoom/Bed: Att Phy:Diagnosis: MHE Asuncion Phy: Adonay Mcmahon-CService Date: 12/28/19 Fam Phy:Interpreting Phy: Yao Cantu MD Admit Phy: Ordering Phy: Gigi Hinkle DO cc: ~ XR KUB/Abdomen 1 view CLINICAL HISTORY: Abdominal discomfort COMPARISON STUDY: No previous studies for comparison. FINDINGS: There is no pathologic bowel dilatation. There are no calcifications suspicious for urinary tract calculi. IMPRESSION: Nonobstructive bowel gas pattern. ACT 112: Negative or not required by law. Electronically signed by: Yao Cantu M.D. 12/28/2019 1:17 PM Dictated: 12/28/191315 Transcribed: 12/28/191315 Patient: RUFINO HERNANDEZ Date: 12/28/19 MR#: [id number]: [address] Acct ID:[id number]: Date: 1970City Zip: [place] [address] Age: 49Location: ED Sex: MRoom/Bed: Att Phy:Diagnosis: MHE Asuncion Phy: Adonay Mcmahon-CService Date: 12/28/19 [facility] Phy:Interpreting Phy: Amador Ortiz MD Admit Phy: Ordering Phy: Gigi Hinkle DO cc: ~ SINGLE VIEW CHEST CLINICAL HISTORY: Cough. FINDINGS: An AP, portable, upright chest radiograph is compared obtained. No prior studies are available for comparison at the time of dictation. The cardiomediastinal silhouette is unremarkable. The lungs and pleural spaces are clear. No pneumothorax is seen. The bony thorax is grossly intact. IMPRESSION: No active disease in the chest. ACT 112: Negative or not required by law. Electronically signed by: Amador Ortiz M.D. 12/28/2019 1:18 PM Dictated: 12/28/191317 Transcribed: 12/28/191317 Blood Pressure Blood Pressure Findings: Elevated blood pressure Blood Pressure Disposition: Referred to patients primary care provider Discharge Plan Visit Data Chief Complaint: Mental Health Evaluation ED Provider: Gigi Hinkle Discharge Problem: Paranoid delusion, Anxiety Patient Disposition: Transfer Behavioral Health Fac Condition: Good Discharge Instructions Interventions: ED Discharge Assessment Last Done: 12/28/19 17:33
[2019-12-28 12:50] LABS: Basophils # (auto) 0.03 K/uL (0-0.2); Basophils % (auto) 0.3 %; Eosinophils # (auto) 0.18 K/uL (0-0.5); Eosinophils % (auto) 1.7 %; Hematocrit (blood only) 44.9 % (42-52); Hemoglobin 15.1 g/dL (14.0-18.0); Immature Granulocytes # (auto) 0.04 K/uL (0.00-0.02); Immature Granulocytes % (auto) 0.4 %; Lymphocytes # (auto) 1.48 K/uL (1.2-3.4); Lymphocytes % (auto) 13.7 %; Mean Corpuscular Hemoglobin 30.5 pg (25-34); Mean Corpuscular Hgb Conc 33.6 g/dL (32-36); Mean Corpuscular Volume 90.7 fL (80-100); Mean Platelet Volume 9.7 fL (7.4-10.4); Monocytes # (auto) 0.78 K/uL (0.11-0.59); Monocytes % (auto) 7.2 %; Neutrophils # (auto) 8.28 K/uL (1.4-6.5); Neutrophils % (auto) 76.7 %; Platelet Count 313 K/uL (130-400); RDW Coefficient of Variation 12.5 % (11.5-14.5); RDW Standard Deviation 41.9 fL (36.4-46.3); Red Blood Count 4.95 M/uL (4.7-6.1); White Blood Count 10.79 K/uL (4.8-10.8)
[2019-12-28 12:53] LABS: Amphetamines+Metham, Urine Neg (Neg); Barbiturates, Urine Neg (Neg); Benzodiazepine, Urine Neg (Neg); Cocaine, Urine Neg (Neg); MDMA (Ecstacy), Urine Neg (Neg); Methadone, Urine Neg (Neg); Opiate, Urine Neg (Neg); Phencyclidine, Urine Neg (Neg)
[2019-12-28 13:09] LABS: Albumin Level 3.6 gm/dl (3.4-5.0); BUN Creatinine Ratio 10.1 (10-20); Creatinine Clr Calc Pharmacy 116.8 ml/min; Est GFR (African American) 98.2; Est GFR (Non-African American) 84.7; Potassium 3.9 mmol/L (3.5-5.1)
--- NOTE | 2019-12-28 13:18 | XRay Report ---
XR KUB/Abdomen 1 view CLINICAL HISTORY: Abdominal discomfort COMPARISON STUDY: No previous studies for comparison. FINDINGS: There is no pathologic bowel dilatation. There are no calcifications suspicious for urinary tract calculi. IMPRESSION: Nonobstructive bowel gas pattern. ACT 112: Negative or not required by law. Electronically signed by: Yao Cantu M.D. 12/28/2019 1:17 PM
[2019-12-28 13:20] LABS: Acetaminophen < 2 ug/ml (10-30); Albumin Globulin Ratio 0.8 (0.9-2); Bilirubin,Total 0.4 mg/dl (0.2-1); Globulin 4.4 gm/dl (2.5-4.0); Thyroid Stimulating Hormone 0.664 uIu/ml (0.300-4.500)
--- NOTE | 2019-12-28 13:20 | XRay Report ---
SINGLE VIEW CHEST CLINICAL HISTORY: Cough. FINDINGS: An AP, portable, upright chest radiograph is compared obtained. No prior studies are availa ble for comparison at the time of dictation. The cardiomediastinal silhouette is unremarkable. The l ungs and pleural spaces are clear. No pneumothorax is seen. The bony thorax is grossly intact. IMPRESSION: No active disease in the chest. ACT 112: Negative or not required by law. Electronically signed by: Amador Ortiz M.D. 12/28/2019 1:18 PM
[2019-12-28 13:21] LABS: Salicylate < 1.7 mg/dl (2.8-20)
[2019-12-28] MEDS ORDERED: SODIUM CHLORIDE 0.65% NA SOLN 45 ML (OCEAN) PRN (17:00)
[2019-12-28] MEDS ORDERED: ACETAMINOPHEN 325 MG TAB PO PRN (17:00)
[2019-12-28] MEDS ORDERED: ALUMINUM/MAGNESIUM SUSP 30 ML UDC PO PRN (17:00)
[2019-12-28] MEDS ORDERED: BISMUTH SUBSALICYLATE LIQD 236 ML PO PRN (17:00)
[2019-12-28] MEDS ORDERED: hydrOXYzine HCl 25 MG TAB PO PRN ×2 (17:00)
[2019-12-28] MEDS ORDERED: MAGNESIUM HYDROXIDE SUSP 30 ML UDC PO PRN (17:00)
[2019-12-28] MEDS ORDERED: PHARMACY GLYCEMIC MGMT CONSULT PRN (17:08)
[2019-12-28] MEDS ORDERED: GLUCAGON FOR INJ 1 MG VIAL IM PRN (17:15)
[2019-12-28] MEDS ORDERED: GLUCOSE 10 TABS/TUBE PO PRN (17:15)
[2019-12-28] MEDS ORDERED: CARBOHYDRATES FOR HYPOGLYCEMIA PO PRN (17:15)
[2019-12-28] MEDS ORDERED: DEXTROSE 50% 50 ML SYRINGE IV PRN (17:15)
[2019-12-28] MEDS ORDERED: GLUCOSE 40% GEL 15 GM TUBE PO PRN (17:15)
[2019-12-28] MEDS ORDERED: BENZTROPINE MESYLATE 1 MG TAB PO PRN (18:13)
[2019-12-28] MEDS ORDERED: haloperidoL 5 MG TAB PO PRN (18:13)
[2019-12-28] MEDS ORDERED: LORazepam 1 MG TAB PO PRN (18:13)
[2019-12-28] MEDS: INSULIN ASPART 100 UNITS/ML 3 ML PEN SC SCH (20:39)
[2019-12-28] MEDS: risperiDONE 1 MG TABLET PO SCH ×2 (20:39→20:45)
--- NOTE | 2019-12-29 08:25 | History & Physical ---
Date of Service December 29, 2019 Impression / Recommendations Impression 49-year-old male with a history of delusional disorder who presents with diana psychosis in the context of medication noncompliance, having stopped his risperidone and citalopram as he believed they were being tampered with. He has extensive delusions of persecution, which may result in him losing his housing, as he may be evicted due to threatening other residents in his apartment complex. He believes he is being targeted by unknown others and that his food and medications are being tampered with, he is being poisoned, and does not trust anyone including his family or outpatient medical providers. He is angry, agitated, and lacks any insight into his condition, refusing to sign releases or take medications, and believes he is being held here as part of a science experiment, and that staff are not really doctors/nurses. I have filed for 303 involuntary commitment with hearing to be held tomorrow, and I am recommending medications over objection due to the severity of his symptoms and the need for immediate treatment to address his psychosis. (1) Delusional disorder, persecutory type: 12/28 -presentation similar to previous hospitalization in April 2019. Floridly delusional, disorganized, agitated. Delusions are directing behavior, resulting in not eating (believes food is being poisoned), not interacting w/ family/supports, not taking medications, and threatening residents at his apt complex which may result in homelessness. He is hypertensive here, with elevated transaminases, unclear if this is related to medication nonadherence or some other underlying medical issue. He lacks any insight into his condition, does not feel he needs hospitalization or treatment, and is refusing to sign CHERY's to allow us to coordinate with his outpatient providers or family. I do not know if he ever followed up with outpatient mental health services, but had been referred to [facility] for case management, and to [facility] for psychiatry and therapy. His brother was a good source of support during his previous hospitalization, and we will encourage patient to allow family to become involved. He is currently angry and unwilling. -I have resumed risperidone 1 mg twice daily as he had a good response to this in April, but he is refusing it. I recommend medications over objection as his psychotic symptoms responded to medication in the past and are unlikely to remit without antipsychotic medication, and he is at acute risk to both himself and others if he continues to be psychotic. -Monitoring on atypical antipsychotic: FLP was normal on 04/13/2019. Fasting glucose this morning was normal. -Continue to gather information toward the need for ongoing involuntary treatment, and consider a 304 IOC. -Contact PCPs office to clarify whether patient got the brain MRI that we had recommended on discharge in the spring. Also clarify whether he has had elevated LFTs before (see below). (2) Depressive disorder, not elsewhere classified: 12/28 -resumed citalopram 10 mg daily; try to gather information from family or friends regarding recent mood symptoms, once patient is willing. (3) Hypertension: 12/28 -continue home dose of lisinopril/hydrochlorothiazide monitor blood pressure. Current hypertension may be due to agitation, continue to monitor. (4) Elevated transaminase level: 12/28 -AST 51 and ALT 109, unclear if he has chronic elevation, as we have no previous results (when he was here in 04/2019, no LFTs were done and he was referred from an outside hospital ER). -I have asked staff to contact his PCP to determine whether this has been an issue before. Recommend rechecking labs in a few days. (5) Type II diabetes mellitus: 12/28 -continue home dose of insulin, diabetic diet, and consult pharmacist for glycemic control/management. (6) Coronary arteriosclerosis: 12/28 -continue home doses of atorvastatin and Plavix Psychiatric History Identifying Data RUFINO HERNANDEZ is a 49-year-old M who currently lives alone in [place], has a history of delusional disorder persecutory type, and was admitted on 12/28/19 17 :00 on a 302 involuntary commitment for psychosis and inability to care for himself. Chief Complaint "Nope". History of Present Illness Patient is known to me from a previous hospitalization on our unit for 9 days in 04/2019 for delusional disorder. He was involuntarily committed for delusions of persecution, paranoia, and inability to care for himself as a result. He was started on risperidone and was discharged on 3 mg at bedtime, and was continued on his home dose of citalopram 10 mg daily. He was initially stating he could not return to his apartment in [place], as it was not safe for him there, and wanted to move elsewhere. His brother and [id number] were involved in treatment, participated in family meeting, and said they were willing to help him look for alternative housing, but expressed concerns that it would not resolve his paranoia. He did not have depressive or manic symptoms during his hospital stay, although did have periods of irritability related to his delusions, and reported a history of low mood which had responded to citalopram. He was referred for a BCM through [facility], and psychiatric care and therapy at [facility]. He scored 19/30 on the [place], and outpatient work-up of cognitive dysfunction including a brain MRI was recommended. He presented to the ER yesterday, 12/28/2019, on referral from his PCP's office in [place]. He had presented to his PCPs office requesting boric acid testing, stating he was being poisoned and it was causing physical symptoms. His PCP sent him to the ER for additional testing, where the business case analyst completed a 302 petition stating: "Patient presents as delusional and paranoid. He believes his food and medications are being tampered with. He states that people are breaking into his apartment and stealing things. He thinks he has been poisoned. He will not eat food at his apartment so he has been going out to eat but states he can no longer leave the apartment because he knows someone will come in and "destroy his world" while he is gone. He reports that he received a letter from his apartment complex threatening to evict him because he has been threatening people. He says "I have told people in the parking lots that I would pound them into the ground if they didn't get the fuck away from me. That is a promise, not a threat." Patient does not willing for inpatient psychiatric treatment because he does not believe anything is wrong with him." They contacted his PCPs office, and the PA who had seen him reported that the patient told him he stopped his Risperdal because he believed that the pharmacy was tampering with it. The patient told ER staff that people are breaking into his apartment and stealing things, including medication, important documents, pictures he is drawn, and problems he is written. He said they are sprinkling mineral spirits and Borax on his food, and he can taste it when he eats. He believes his shampoo and soaps are being injected with Borax, because he can smell it and feel it burning his skin. He thinks his glasses have been tampered with, that someone told them while he was asleep and changed the prescription. He says someone came into his apartment and switched out his tuna for Food and his potato chips for dog treats. He believes his bank account has been tampered with and that he cannot access his money. He thinks someone is using psychological warfare through an ap on his phone. He says he has broken 6 or 7 phones, and currently does not have one. He says he is being provoked and harassed by people in his apartment complex, and admitted that he stopped taking his risperidone and citalopram because they have been tampered with. He was agitated and focused on his delusions of persecution, and said he had not been speaking with his family because they are liars and do not treat him well. He said he had not been eating because he believes the food in his apartment was tampered with, and he did not want to leave to eat elsewhere because then he believes his things would be tampered with while he was gone. He demonstrated no insight, and was unwilling for inpatient treatment, so was placed on a 302 involuntary commitment. He was suspicious of the Covid test, stating he believed the nurse was really a doctor and was trying to take his DNA to use against him. He did not want to give up his hat or mask to nursing staff, stating he was afraid poison would be put on it so that he would have to breathe it in. His home dose of risperidone was continued, but he refused it last night. His admission labs were notable for elevated transaminases (AST 51, ALT 109) glucose 126, normal CBC, negative UA and drug screen, and negative Covid test. On my assessment, he was agitated and uncooperative, ranting at length about people who are "stealing and ruining things for me, they do a lot of hateful things." He states he "doesn't know and doesn't care" who these people are, but believes many people are conspiring against him to ruin his life. He does not believe I am a physician and does not remember me from his last hospitalization, stating that I am a magician in [place], someone on a TV show, and was on [employer]opard[employer]. He does not believe that the physician executive assistant to president he saw at his PCPs office prior to coming to the hospital is really a healthcare worker, then starts talking about his brother, being a disabled , and that his "papers were stolen." He says he had a tooth that was supposed to be pulled, but it never was, and relates this to his belongings being "stolen and ruined multiple times," and his inability to trust anyone. He is angry with his brother and says that he saw him yesterday when he was at his PCPs office, and is convinced his family was involved in involuntarily committing him to the hospital. He cannot be reassured even when advised that I have no information from his family. He says his brother "continues to lie to me, doing double secret handshakes behind his back with the neighbors." He says he has boric acid in his system, which he got from going to a [employer] shop and eating a sandwich and drink there. He says he was "puking blood," and relates this to having blood drawn in the ER. He says he is angry about being here, "I'm missing out on my life, and for what, I tried to do what you guys said, and then this is what they do to me...'click,' they entered my storage shed, took my tools, I complained to management, heavy smoke was going to my apartment, they didn't do a damn thing! I didn't do a damn thing to be a science project!" He was hitting the gabriel and doors, becoming increasingly agitated and angry. Explained that he was on a 302 involuntary commitment at that I would be filing for a 303 involuntary commitment with hearing to be held tomorrow. He frequently interrupted and was unable to engage in a discussion about this. Past Psychiatric History Current Psychiatric Diagnosis: Delusional disorder, persecutory type Outpatient Services: Unclear if patient followed up with outpatient services since April, but at the time of discharge from our unit, he was referred for a blended business case analyst through [facility], and for psychiatry and therapy at [facility]. Previous Psych Admissions: Here April 2019 X 9 days for psychosis. Past Medication Trials: Risperidone -started here in April Citalopram -started by PCP in late 2018/early 2019 Allergies Allergy/AdvReac Type Severity Reaction Status Date / Time cat dander Allergy Wheezing Verified 12/28/19 11:43 Home Medications Home Medications Medication Instructions Recorded Confirmed Type Tresiba FlexTouch U-200 160 unit SUBCUT DAILY 04/11/19 12/28/19 History atorvastatin [Lipitor] 80 mg PO DAILY 04/11/19 12/28/19 History clopidogrel [Plavix] 75 mg PO DAILY 04/11/19 12/28/19 History insulin lispro [Humalog KwikPen 32 unit SUBCUT PM 04/11/19 12/28/19 History Insulin] lisinopril-hydrochlorothiazide 1 tab PO DAILY 04/11/19 12/28/19 History citalopram 10 mg PO QAM #30 tab 04/20/19 Rx risperidone 3 mg PO HS #30 tab 04/20/19 Rx Family History Family History of: Refuses To Discuss Family Mental Health History Comment: Per records, when he was admitted in 04/2019 he stated he did not know of any family history of mental illness Alcohol History Hx of Alcohol Use Over the Past 12 Months: Yes ("A few beers here and there") AUDIT Total Score: 1 No known history of substance abuse. Smoking Use Have You Smoked or Used Tobacco Products in the Last 30 Days: Yes tobacco type: smokeless tobacco Smoking Status: Never smoker Smoking packs per day: 0.5 Substance History Hx of Prescription Med Misuse Over the Past 12 Months: No Hx of Over the Counter Med Misuse Over the Past 12 Months: No Hx of Inhalent Misuse Over the Past 12 Months: No Hx of Organic Substance Use Over the Past 12 Months: No Hx of Illegal Substances/Street Drug Use Over Past 12 Months: No Problems as a Result of Past Substance Use: None Identified Personal History Living Arrangements: Apartment Living Arrangements Comments: in [place]. Lives alone. Brother and [id number] supportive during previous hospitalization. Childhood: 1 of 8 siblings Highest Grade Completed: High School Graduate Employment Status: Disabled (Since CVA) Marital Status: Single (During last hospitalization, he reported he had been engaged at 1 point in the past, and his fiance had a miscarriage) Number Of Children: 0 Beliefs That Will Affect Care: None Hx Legal Problems: No Hx Traumatic Life Events: No Patient History Medical History Coronary arteriosclerosis CVA (cerebral vascular accident) Delusional disorder, persecutory type Depressive disorder, not elsewhere classified Hypertension Type II diabetes mellitus Social History Smoking Status: Never smoker Preferred Language: Puerto Rican Communication Ability: Effective Transformer Stock Clerk Required: No Beliefs That Will Affect Care: None Feels Safe at Home: No Assistive Devices: Glasses Review of Systems Review of Systems: Unobtainable due to mental health condition (Patient agitated and ranting, unable to be redirected.) Physical Exam Psychiatric: Orientation: alert, oriented to person and oriented to place; + uncooperative Apperance: appropriately dressed, appropriately groomed and appeared stated age Overweight white male. Casually dressed in street clothes. Standing in his room looking out the window, often turns his back to me. Sometimes avoids eye contact, other times stares intently while pointing and gesticulating wildly. Motor Behavior: steady gait and station and + psychomotor agitation At times paces, gestures exaggeratedly, slams doors and gabriel. Angry, loud, ranting, overproductive. Affect: + irritable affect, + angry affect and + constricted affect Mood: + angry mood Thought Process: + tangential thought process, + looseness of associations and + incoherent thought process; + thought association not intact Thought Content: + paranoid, + delusions, + ideas of reference and + persecution Suicidal Thoughts: denies suicidal thoughts Homicidal Thoughts: + reports homicidal thoughts Admits to threatening people in his apartment complex as he thinks they were conspiring against him. Patient does not respond to questions regarding hallucinations, ranting angrily about other topics. Cognition: + recent memory not intact, + remote memory not intact and + attention not intact Estimated Intelligence: average estimated intelligence Insight: + severely impaired insight Judgement: + severely impaired judgement Vital Signs (Past 24 Hours): Last Vital Signs Temp 36.4 C L 12/29/19 06:23 Pulse 57 L 12/29/19 06:23 Resp 16 12/29/19 06:23 BP 172/85 H 12/29/19 06:23 Pulse Ox 97 12/28/19 17:56 Exam Statement: A physical exam was performed in the ER prior to admission to the unit by Dr. Gigi Hinkle. I accept that physical as correct/medical clearance for the inpatient physical exam. Results & Data ([facility]) Laboratory Results Laboratory Results - last 24 hr 12/28/19 12/28/19 12/28/19 11:50 11:50 12:35 WBC 10.79 RBC 4.95 Hgb 15.1 Hct 44.9 MCV 90.7 MCH 30.5 MCHC 33.6 RDW Std Deviation 41.9 RDW Coeff of [place] 12.5 Plt Count 313 MPV 9.7 Immature Gran % (Auto) 0.4 Neut % (Auto) 76.7 Lymph % (Auto) 13.7 Elbert % (Auto) 7.2 Eos % (Auto) 1.7 Baso % (Auto) 0.3 Neut # (Auto) 8.28 H Lymph # (Auto) 1.48 Elbert # (Auto) 0.78 H Eos # (Auto) 0.18 Baso # (Auto) 0.03 Immature Gran # (Auto) 0.04 H Sodium Potassium Chloride Carbon Dioxide Anion Gap BUN Creatinine Est Cr Clr Drug Dosing Est GFR ( Amer) Est GFR (Non-Af Amer) BUN/Creatinine Ratio Glucose POC Glucose Calcium Total Bilirubin AST ALT Alkaline Phosphatase Total Protein Albumin Globulin Albumin/Globulin Ratio TSH Urine Color Yellow Urine Appearance Clear Urine pH 6.0 Ur Specific Hawkeye 1.014 Urine Protein Negative Urine Glucose (UA) Negative Urine Ketones Negative Urine Blood Negative Urine Nitrite Negative Urine Bilirubin Negative Urine Urobilinogen Negative Ur Leukocyte Esterase Negative Salicylates Urine Opiates Screen Neg Ur Methadone, Qual Neg Acetaminophen Urine Barbiturates Neg Ur Phencyclidine (PCP) Neg U Amphetamin/Meth Scrn Neg MDMA (Ecstasy) Screen Neg U Benzodiazepines Scrn Neg Ur Cocaine Metabolite Neg U Marijuana (THC) Screen Neg Ethyl Alcohol mg/dL COVID-19 Eval Order SARS-CoV-2, RNA, NAAT 12/28/19 12/28/19 12/28/19 12:35 12:35 12:35 WBC RBC Hgb Hct MCV MCH MCHC RDW Std Deviation RDW Coeff of [place] Plt Count MPV Immature Gran % (Auto) Neut % (Auto) Lymph % (Auto) Elbert % (Auto) Eos % (Auto) Baso % (Auto) Neut # (Auto) Lymph # (Auto) Elbert # (Auto) Eos # (Auto) Baso # (Auto) Immature Gran # (Auto) Sodium 140 Potassium 3.9 Chloride 108 H Carbon Dioxide 26 Anion Gap 6.0 BUN 10 Creatinine 1.02 Est Cr Clr Drug Dosing 116.8 Est GFR ( Amer) 98.2 Est GFR (Non-Af Amer) 84.7 BUN/Creatinine Ratio 10.1 Glucose 126 H POC Glucose Calcium 9.0 Total Bilirubin 0.4 AST 51 H ALT 109 H Alkaline Phosphatase 98 Total Protein 8.0 Albumin 3.6 Globulin 4.4 H Albumin/Globulin Ratio 0.8 L TSH 0.664 Urine Color Urine Appearance Urine pH Ur Specific [place] Urine Protein Urine Glucose (UA) Urine Ketones Urine Blood Urine Nitrite Urine Bilirubin Urine Urobilinogen Ur Leukocyte Esterase Salicylates < 1.7 L Urine Opiates Screen Ur Methadone, Qual Acetaminophen < 2 L Urine Barbiturates Ur Phencyclidine (PCP) U Amphetamin/Meth Scrn MDMA (Ecstasy) Screen U Benzodiazepines Scrn Ur Cocaine Metabolite U Marijuana (THC) Screen Ethyl Alcohol mg/dL < 3.0 COVID-19 Eval Order SARS-CoV-2, RNA, NAAT 12/28/19 12/28/19 12/28/19 15:35 15:35 20:30 WBC RBC Hgb Hct MCV MCH MCHC RDW Std Deviation RDW Coeff of [place] Plt Count MPV Immature Gran % (Auto) Neut % (Auto) Lymph % (Auto) Elbert % (Auto) Eos % (Auto) Baso % (Auto) Neut # (Auto) Lymph # (Auto) Elbert # (Auto) Eos # (Auto) Baso # (Auto) Immature Gran # (Auto) Sodium Potassium Chloride Carbon Dioxide Anion Gap BUN Creatinine Est Cr Clr Drug Dosing Est GFR ( Amer) Est GFR (Non-Af Amer) BUN/Creatinine Ratio Glucose POC Glucose 104 H Calcium Total Bilirubin AST ALT Alkaline Phosphatase Total Protein Albumin Globulin Albumin/Globulin Ratio TSH Urine Color Urine Appearance Urine pH Ur Specific [place] Urine Protein Urine Glucose (UA) Urine Ketones Urine Blood Urine Nitrite Urine Bilirubin Urine Urobilinogen Ur Leukocyte Esterase Salicylates Urine Opiates Screen Ur Methadone, Qual Acetaminophen Urine Barbiturates Ur Phencyclidine (PCP) U Amphetamin/Meth Scrn MDMA (Ecstasy) Screen U Benzodiazepines Scrn Ur Cocaine Metabolite U Marijuana (THC) Screen Ethyl Alcohol mg/dL COVID-19 Eval Order Covid19 [facility] SARS-CoV-2, RNA, NAAT NEGATIVE Current Inpatient Medications Current Inpatient Medications: Current Inpatient Medications Acetaminophen (Acetaminophen 325 Mg Tab) 650 mg PO Q4H PRN PRN Reason: Headache or Minor Fever Stop: 01/27/20 16:59 Al Hydrox/Mg Hydrox/Simethicone (Aluminum/Magnesium Susp 30 Ml Udc) 30 ml PO Q4H PRN PRN Reason: GI Upset Stop: 01/27/20 16:59 Atorvastatin Calcium (Atorvastatin 40 Mg Tab) 80 mg PO DAILY AMY Stop: 01/28/20 08:59 Benztropine Mesylate (Benztropine Mesylate 1 Mg Tab) 1 mg PO Q6 PRN PRN Reason: Muscle Spasm Stop: 01/27/20 18:12 Bismuth Subsalicylate (Bismuth Subsalicylate Liqd 236 Ml) 15 ml PO PRN PRN PRN Reason: Loose Stool Stop: 01/27/20 16:59 Citalopram Hydrobromide (Citalopram 20 Mg Tab) 10 mg PO QAM AMY Stop: 01/28/20 08:59 Clopidogrel Bisulfate (Clopidogrel Bisulfate 75 Mg Tab) 75 mg PO DAILY AMY Stop: 01/28/20 08:59 Dextrose (Dextrose 50% 50 Ml Syringe) 25 - 50 ml IV UD PRN; Protocol PRN Reason: Hypoglycemia Protocol Stop: 01/27/20 17:14 Glucagon (Glucagon For Inj 1 Mg Vial) 1 mg IM UD PRN; Protocol PRN Reason: Hypoglycemia Protocol Stop: 01/27/20 17:14 Glucose (Glucose 40% Gel 15 Gm Tube) 15 - 30 gm PO UD PRN; Protocol PRN Reason: Hypoglycemia Protocol Stop: 01/27/20 17:14 Glucose (Glucose 10 Tabs/Tube) 4 - 8 tabs PO UD PRN; Protocol PRN Reason: Hypoglycemia Protocol Stop: 01/27/20 17:14 Lisinopril/HCTZ (Lisinopril/Hctz 20/12.5mg 1 Tab Tab) 1 tab PO DAILY AMY Stop: 01/28/20 08:59 Haloperidol (Haloperidol 5 Mg Tab) 5 mg PO Q6 PRN PRN Reason: Anxiety/Agitation Stop: 01/27/20 18:12 Hydroxyzine HCl (Hydroxyzine Hcl 25 Mg Tab) 50 mg PO HSZ PRN PRN Reason: Insomnia Stop: 01/27/20 16:59 Hydroxyzine HCl (Hydroxyzine Hcl 25 Mg Tab) 25 mg PO Q4H PRN PRN Reason: Anxiety Stop: 01/27/20 16:59 Insulin Aspart (Insulin Aspart 100 Units/Ml 3 Ml Pen) 0 units SC ACHS AMY Stop: 01/27/20 20:59 Last Admin: 12/28/19 20:39 Dose: 1 units Documented by: Lorazepam (Lorazepam 1 Mg Tab) 1 mg PO Q6 PRN PRN Reason: Anxiety/Agitation Stop: 01/27/20 18:12 Magnesium Hydroxide (Magnesium Hydroxide Susp 30 Ml Udc) 30 ml PO DAILY PRN PRN Reason: Constipation Stop: 01/27/20 16:59 Miscellaneous (Carbohydrates For Hypoglycemia ) 15 - 30 gm PO UD PRN PRN Reason: Hypoglycemia Treatment Stop: 01/27/20 17:14 Miscellaneous Information (Pharmacy Glycemic Mgmt Consult) 1 ea N/A UD PRN PRN Reason: Consult Stop: 01/27/20 17:07 Risperidone (Risperidone 1 Mg Tablet) 1 mg PO BID [facility] Stop: 01/27/20 20:59 Last Admin: 12/28/19 20:45 Dose: Not Given Documented by: Sodium Chloride (Sodium Chloride 0.65% Na Soln 45 Ml ([place])) 1 - 2 sprays NA PRN PRN PRN Reason: Nasal Dryness/Congestion Stop: 01/27/20 16:59
[2019-12-29] MEDS ORDERED: INSULIN DEGLUDEC 160 UNIT SQ SCH (09:00)
[2019-12-29] MEDS: CITALOPRAM 20 MG TAB PO SCH (10:14)
[2019-12-29] MEDS: risperiDONE 1 MG TABLET PO SCH ×2 (10:17→22:28)
[2019-12-29] MEDS: CLOPIDOGREL BISULFATE 75 MG TAB PO SCH (10:17)
[2019-12-29] MEDS: ATORVASTATIN 40 MG TAB PO SCH (10:17)
[2019-12-29] MEDS: LISINOPRIL/HCTZ 20/12.5MG 1 TAB TAB PO SCH (10:17)
[2019-12-29] MEDS: INSULIN ASPART 100 UNITS/ML 3 ML PEN SC SCH ×4 (10:26→22:29)
--- NOTE | 2019-12-29 14:09 | Pharmacy Report ---
Pharmacy Glycemic Short Note 2 - Date of Service December 29, 2019 - Glycemic Short BSG Results (Last 24 hours): 12/28/19 12/29/19 20:30 08:10 POC Glucose 104 H Fasting Glucose 74 ASSESSMENT: * Percy is a 49 yo male with a history of delusional disorder who presents with diana psychosis in the context of medication noncompliance * His med rec states that he takes large doses of insulin (Tresiba 160 units SQ qAM + Humalog 32 units qPM), however during a previous admission he required no basal insulin * Currently ordered Novolog per correction factor and carb ratio * I spoke with RN who reports patient is refusing all medications and refusing to have BSG checked. aware. PLAN FOR INPATIENT GLYCEMIC CONTROL: *Unable to provide recommendations per patient refusing BSG checks and insulin. Will continue current orders: * Basal insulin * none * Bolus insulin * NovoLog per scale ACHS or Q6hrs while NPO * Goal Range: Low 110 mg/dL - High 140 mg/dL * Correction Factor: 30 mg/dL/unit * Nutritional / Prandial insulin per carb ratio of 1 unit per 10 grams CHO consumed
[2019-12-30] MEDS ORDERED: ONDANSETRON 4 MG OD TAB PO STA (09:10)
[2019-12-30] MEDS: INSULIN ASPART 100 UNITS/ML 3 ML PEN SC SCH ×4 (09:45→21:52)
[2019-12-30] MEDS: CITALOPRAM 20 MG TAB PO SCH (09:54)
[2019-12-30] MEDS: ATORVASTATIN 40 MG TAB PO SCH (09:55)
[2019-12-30] MEDS: CLOPIDOGREL BISULFATE 75 MG TAB PO SCH (09:55)
[2019-12-30] MEDS: risperiDONE 1 MG TABLET PO SCH (09:55)
[2019-12-30] MEDS: LISINOPRIL/HCTZ 20/12.5MG 1 TAB TAB PO SCH (09:55)
[2019-12-30] MEDS ORDERED: haloperidoL 5 MG TAB PO STA (10:10)
--- NOTE | 2019-12-30 10:10 | Communication Note ---
Date of Service: December 30, 2019 I met [id number] with the patient this morning. Mr. Hill is floridly psychotic and, for example, he states that he believes that we are poisoning him by tampering with his medications and food. Within this context, he is refusing all medications, including medicines to treat his insulin-dependent diabetes and his coronary artery disease, as well as his psychiatric medications. He is also eating very sparingly because he insists that the treatment team is also attempting to poison him by tampering with the food that he is being served. Mr. Hill has also voiced threats to cause physical harm to others, based upon delusional persecutory beliefs that are directly attributably to his mental illness. I am in agreement with Dr. Horne's conclusions and I recommend medications over objection as his psychotic symptoms responded to medication in the past and are unlikely to remit without antipsychotic medication, and he is at acute risk to both himself and others if he continues to be psychotic. Accordingly, I will order Haldol 5 mg IM as needed for refusal of PO risperidone, over patient's objection if necessary.
[2019-12-30] MEDS ORDERED: HALOPERIDOL LACTATE 5 MG/ML 1 ML VIAL IM PRN ×3 (10:12→14:00)
[2019-12-30] MEDS ORDERED: LORazepam 2 MG/ML VIAL (IM USE) IM STA (10:35)
[2019-12-30] MEDS ORDERED: BENZTROPINE MESYLATE 1 MG TAB PO PRN (10:38)
--- NOTE | 2019-12-30 13:29 | Psychiatric Progress Note ---
Date of Service December 30, 2019 Impression / Recommendations Impression 49-year-old male with a history of delusional disorder who presents with diana psychosis in the context of medication noncompliance, having stopped his risperidone and citalopram as he believed they were being tampered with. He has extensive delusions of persecution, which may result in him losing his housing, as he may be evicted due to threatening other residents in his apartment complex. He believes he is being targeted by unknown others and that his food and medications are being tampered with, he is being poisoned, and does not trust anyone including his family or outpatient medical providers. He is angry, agitated, and lacks any insight into his condition, refusing to sign releases or take medications, and believes he is being held here as part of a science experiment, and that staff are not really doctors/nurses. I have filed for 303 involuntary commitment with hearing to be held tomorrow, and I am recommending medications over objection due to the severity of his symptoms and the need for immediate treatment to address his psychosis. 12/30/19 update: The patient agreed to take haloperidol 10 mg by mouth this morning after a second opinion in favor of medications over objections was rendered. (It was necessary to call security, but eventually the patient did agree to take the medication orally). There seems to have been an initial favorable response. After sleeping, the patient got out of bed, joined other patients in the day room, and was able to interact in a polite manner with staff. Given what appears to be a fairly rapid and favorable response to haloperidol, the plan will be to discontinue the order for risperidone (which the patient has not yet taken) and continue Haldol 10 mg by mouth twice a day with an order for Haldol 5 mg IM for refusal of p.o. Haldol. (1) Delusional disorder, persecutory type: 12/28 -presentation similar to previous hospitalization in April 2019. Floridly delusional, disorganized, agitated. Delusions are directing behavior, resulting in not eating (believes food is being poisoned), not interacting w/ family/supports, not taking medications, and threatening residents at his apt complex which may result in homelessness. He is hypertensive here, with elevated transaminases, unclear if this is related to medication nonadherence or some other underlying medical issue. He lacks any insight into his condition, does not feel he needs hospitalization or treatment, and is refusing to sign CHERY's to allow us to coordinate with his outpatient providers or family. I do not know if he ever followed up with outpatient mental health services, but had been referred to [facility] for case management, and to [facility] for psychiatry and therapy. His brother was a good source of support during his previous hospitalization, and we will encourage patient to allow family to become involved. He is currently angry and unwilling. -I have resumed risperidone 1 mg twice daily as he had a good response to this in April, but he is refusing it. I recommend medications over objection as his psychotic symptoms responded to medication in the past and are unlikely to remit without antipsychotic medication, and he is at acute risk to both himself and others if he continues to be psychotic. -Monitoring on atypical antipsychotic: FLP was normal on 04/13/2019. Fasting glucose this morning was normal. -Continue to gather information toward the need for ongoing involuntary treatment, and consider a 304 IOC. -Contact PCPs office to clarify whether patient got the brain MRI that we had recommended on discharge in the spring. Also clarify whether he has had elevated LFTs before (see below). 12/29 -Initially this morning the patient continued to demonstrate florid psychosis. More specifically, he continues to accuse the staff of tampering with his food and attempting to poison him by similarly tampering with his medications. Within this context, he was refusing all medications, including nonpsychiatric medications as well as psychiatric medications, and he was also essentially refusing to eat. He has been consuming fluids, as long as we give them to him in the form of bottled water that is sealed. -A second opinion for medications over objection was provided, and the patient was offered a choice of oral haloperidol or IM haloperidol. He agreed agreed to take Haldol 10 mg by mouth, but declined a oral dose of lorazepam that have been offered. After sleeping for an hour or 2, the patient got up, began walking around the unit and exploring things, and began to interact more appropriately with staff, although he was disinclined to speak at any length and asked to be excused from conversations, "for right now." He also acknowledged that he was feeling significantly better, and eventually stated that he felt that the medication that he had been given had been helpful to him. He remains to be seen if he will continue to take oral psychiatric medications, and an order for medications over objection remains in place.-- -Given what appears to be a robust response to Haldol 10 mg by mouth, we decided to discontinue risperidone (which never been actually given because the patient had refused to take it voluntarily) in favor of haloperidol 10 mg twice a day. As above, an order for haloperidol 5 mg IM as needed for refusal of p.o Haldol is in place. There is also an order for as needed oral Haldol and an order in place for as needed benztropine for EPS.. (2) Depressive disorder, not elsewhere classified: 12/28 -resumed citalopram 10 mg daily; try to gather information from family or friends regarding recent mood symptoms, once patient is willing. 12/29 -The patient has not yet agreed to take citalopram. We will continue to encourage him to take it as prescribed. However, as above, the patient's mood appears to have improved and that he is seemingly significantly less irritable. (3) Hypertension: 12/28 -continue home dose of lisinopril/hydrochlorothiazide monitor blood pressure. Current hypertension may be due to agitation, continue to monitor. (4) Elevated transaminase level: 12/28 -AST 51 and ALT 109, unclear if he has chronic elevation, as we have no previous results (when he was here in 04/2019, no LFTs were done and he was referred from an outside hospital ER). -I have asked staff to contact his PCP to determine whether this has been an issue before. Recommend rechecking labs in a few days. 12/29 -Repeat liver panel scheduled for 01/02/2020. (5) Type II diabetes mellitus: 12/28 -continue home dose of insulin, diabetic diet, and consult [facility] for glycemic control/management. 12/29 -With significant amount of effort on the part of the staff, the patient did agree to allow his blood glucose level to be wave tested this morning. The measured level was within normal limits, but this is within the context of his refusal of most foods and all caloric drinks. (6) Coronary arteriosclerosis: 12/28 -continue home doses of atorvastatin and Plavix 12/29 -The patient is continuing to refuse doses of ever statin and Plavix, but within the above referenced evidence of favorable response to haloperidol given in the late morning, we are hopeful that the patient's willingness to cooperate with medications and his ability to trust staff well allow him to resume have a statin and Plavix as ordered. Interval History Chief Complaint "You're trying to poison me!" Review of Systems Sleep Information Total Hours of Sleep: 10.25 Meal Information Percent Meal Consumed - Breakfast: 0 Percent Meal Consumed - Lunch: 0 Percent Meal Consumed - Dinner: 60 Nutrition Comment: pt ate a bag of pretzels Subjective Subjective Patient was seen & assessed and interval progress reviewed with treatment team. I met individually with the patient in order to assess his current mental status, evaluate his response to treatment, make any necessary changes in his treatment regimen and coordination with the patient,, and address issues questions and concerns that may arise. It was necessary to make several contact with the patient during the course of the day because, initially, the patient was so paranoid that he could only tolerate brief interactions. The patient continued to insist that we are tampering with his food and altering various medications in an effort to poison him. This morning, for example, he complained of severe nausea and dyspepsia. He was offered a stat dose of Zofran, but refused by saying, "you are not a real doctor. Get me a doctor for my stomach and kidneys." Although not explicitly stated, it appeared that the patient was eager for us to bring him in outside physician who is not a psychiatrist so that the nonpsychiatric physician would be able to run test and determine that, in fact, the patient was being poisoned. This is based on the fact the patient kept repeating, "I want a doctor who is not a psychiatrist, to run some tests." Also, the patient was eating almost nothing and refused breakfast. He did submit to a fingerstick glucometer testing, but refuses all medicine, including nonpsychiatric medicines such as insulin and cardiac medications. A second opinion was provided for medications over objection (see supplemental note) and haloperidol 5 mg IM was ordered for refusal of an oral dose of Haldol 10 mg. Because the patient had loudly protested that he would refuse all medications that we offered him, security was brought up and the patient was offered the oral dose of Haldol, along with a dose of oral lorazepam. Somewhat to our surprise, with security present, and after raising certain objections the patient did agree to take both the oral Haldol and oral lorazepam without requiring any form of restraint. Subsequent to that, the patient slept well, and by the early afternoon he was up, exploring the unit, and although still somewhat suspicious and his manner with staff, he was reasonably pleasant. He told us, for example, that he was "feeling better," and expressed gratitude for our concern. However, he was reluctant to be interviewed in depth, and politely explained that he did not feel "much like talking just now." Physical Exam Psychiatric Orientation: alert, oriented to person, oriented to place and + guarded Apperance: + disheveled and appeared stated age Eye Contact: + poor eye contact Motor Behavior: + psychomotor retardation The patient's speech was nonspontaneous, and was somewhat gruff and bumptious. Affect: + irritable affect and + angry affect "My mood is fine." Thought Process: + concrete thought process Thought Content: + delusions (The patient continues to harbor delusions of persecution.) She declines to answer questions about suicide. The patient declines to answer questions regarding homicide. Hallucinations: no auditory hallucinations The patient was not available to respond to cognitive testing Estimated Intelligence: average estimated intelligence Insight: + severely impaired insight Judgement: + severely impaired judgement Vital Signs (Past 24 Hours) Last Vital Signs Temp 36.5 C 12/30/19 06:00 Pulse 93 H 12/30/19 06:00 Resp 20 12/30/19 06:00 BP 143/88 H 12/30/19 06:00 Pulse Ox 97 12/28/19 17:56 Results & Data ([facility]) Laboratory Results Laboratory Results - last 24 hr 12/29/19 12/30/19 12/30/19 16:45 06:27 08:57 POC Glucose 70 83 86 Current Inpatient Medications Current Inpatient Medications: Current Inpatient Medications Acetaminophen (Acetaminophen 325 Mg Tab) 650 mg PO Q4H PRN PRN Reason: Headache or Minor Fever Stop: 01/27/20 16:59 Al Hydrox/Mg Hydrox/Simethicone (Aluminum/Magnesium Susp 30 Ml Udc) 30 ml PO Q4H PRN PRN Reason: GI Upset Stop: 01/27/20 16:59 Atorvastatin Calcium (Atorvastatin 40 Mg Tab) 80 mg PO DAILY [facility] Stop: 01/28/20 08:59 Last Admin: 12/30/19 09:55 Dose: Not Given Documented by: Benztropine Mesylate (Benztropine Mesylate 1 Mg Tab) 1 mg PO Q6 PRN PRN Reason: Muscle Spasm Stop: 01/27/20 18:12 Benztropine Mesylate (Benztropine Mesylate 1 Mg Tab) 2 mg PO BID PRN PRN Reason: Extra Pyramidal Symptoms Stop: 01/29/20 10:37 Bismuth Subsalicylate (Bismuth Subsalicylate Liqd 236 Ml) 15 ml PO PRN PRN PRN Reason: Loose Stool Stop: 01/27/20 16:59 Citalopram Hydrobromide (Citalopram 20 Mg Tab) 10 mg PO QAM [facility] Stop: 01/28/20 08:59 Last Admin: 12/30/19 09:54 Dose: Not Given Documented by: Clopidogrel Bisulfate (Clopidogrel Bisulfate 75 Mg Tab) 75 mg PO DAILY [facility] Stop: 01/28/20 08:59 Last Admin: 12/30/19 09:55 Dose: Not Given Documented by: Dextrose (Dextrose 50% 50 Ml Syringe) 25 - 50 ml IV UD PRN; Protocol PRN Reason: Hypoglycemia Protocol Stop: 01/27/20 17:14 Glucagon (Glucagon For Inj 1 Mg Vial) 1 mg IM UD PRN; Protocol PRN Reason: Hypoglycemia Protocol Stop: 01/27/20 17:14 Glucose (Glucose 40% Gel 15 Gm Tube) 15 - 30 gm PO UD PRN; Protocol PRN Reason: Hypoglycemia Protocol Stop: 01/27/20 17:14 Glucose (Glucose 10 Tabs/Tube) 4 - 8 tabs PO UD PRN; Protocol PRN Reason: Hypoglycemia Protocol Stop: 01/27/20 17:14 Lisinopril/HCTZ (Lisinopril/Hctz 20/12.5mg 1 Tab Tab) 1 tab PO DAILY [facility] Stop: 01/28/20 08:59 Last Admin: 12/30/19 09:55 Dose: Not Given Documented by: Haloperidol (Haloperidol 5 Mg Tab) 5 mg PO Q6 PRN PRN Reason: Anxiety/Agitation Stop: 01/27/20 18:12 Haloperidol Lactate (Haloperidol Lactate 5 Mg/Ml 1 Ml Vial) 5 mg IM NOW PRN PRN Reason: Refusal of PO Haldol Stop: 01/29/20 10:11 Haloperidol Lactate (Haloperidol Lactate 5 Mg/Ml 1 Ml Vial) 5 mg IM BID PRN PRN Reason: Refusal of PO risperidone Stop: 01/29/20 13:59 Hydroxyzine HCl (Hydroxyzine Hcl 25 Mg Tab) 50 mg PO HSZ PRN PRN Reason: Insomnia Stop: 01/27/20 16:59 Hydroxyzine HCl (Hydroxyzine Hcl 25 Mg Tab) 25 mg PO Q4H PRN PRN Reason: Anxiety Stop: 01/27/20 16:59 Insulin Aspart (Insulin Aspart 100 Units/Ml 3 Ml Pen) 0 units SC ACHS [facility] Stop: 01/27/20 20:59 Last Admin: 12/30/19 09:45 Dose: Not Given Documented by: Lorazepam (Lorazepam 1 Mg Tab) 1 mg PO Q6 PRN PRN Reason: Anxiety/Agitation Stop: 01/27/20 18:12 Magnesium Hydroxide (Magnesium Hydroxide Susp 30 Ml Udc) 30 ml PO DAILY PRN PRN Reason: Constipation Stop: 01/27/20 16:59 Miscellaneous (Carbohydrates For Hypoglycemia ) 15 - 30 gm PO UD PRN PRN Reason: Hypoglycemia Treatment Stop: 01/27/20 17:14 Miscellaneous Information (Pharmacy Glycemic Mgmt Consult) 1 ea N/A UD PRN PRN Reason: Consult Stop: 01/27/20 17:07 Risperidone (Risperidone 2 Mg Tablet) 2 mg PO [id number] [facility] Stop: 01/29/20 13:59 Sodium Chloride (Sodium Chloride 0.65% Na Soln 45 Ml ([place])) 1 - 2 sprays NA PRN PRN PRN Reason: Nasal Dryness/Congestion Stop: 01/27/20 16:59 Mental Health & Subst Abuse Tx Therapist Name of Therapist: None Boom Boss Name of Boom Boss: None Post Discharge Appointments Primary Care Physician Name Of Family Doctor: Adonay Mcmahon
--- NOTE | 2019-12-30 13:30 | Pharmacy Report ---
Pharmacy Glycemic Short Note 2 - Date of Service December 30, 2019 - Glycemic Short BSG Results (Last 24 hours): 12/29/19 12/30/19 12/30/19 16:45 06:27 08:57 POC Glucose 70 83 86 12/30/19 13:23 POC Glucose 90 ASSESSMENT: 12/29: * Percy continues to refuse all medications, including insulin * Fortunately staff was able to obtain fasting BSG and lunchtime BSG, which were both at goal despite no administration of insulin since admission. 12/28: * Percy is a 49 yo male with a history of delusional disorder who presents with diana psychosis in the context of medication noncompliance * His med rec states that he takes large doses of insulin (Tresiba 160 units SQ qAM + Humalog 32 units qPM), however during a previous admission he required no basal insulin * Currently ordered Novolog per correction factor and carb ratio * I spoke with RN who reports patient is refusing all medications and refusing to have BSG checked. aware. PLAN FOR INPATIENT GLYCEMIC CONTROL: *Patient continues to refuse insulin. Will continue current orders: * Basal insulin * none * Bolus insulin * NovoLog per scale ACHS or Q6hrs while NPO * Goal Range: Low 110 mg/dL - High 140 mg/dL * Correction Factor: 30 mg/dL/unit * Nutritional / Prandial insulin per carb ratio of 1 unit per 10 grams CHO consumed
[2019-12-30] MEDS ORDERED: risperiDONE 2 MG TABLET PO SCH (14:00)
[2019-12-30] MEDS ORDERED: haloperidoL 5 MG TAB PO SCH (14:00)
[2019-12-30] MEDS: haloperidoL 5 MG TAB PO SCH (19:17)
[2019-12-31] MEDS: haloperidoL 5 MG TAB PO SCH ×2 (08:57→20:00)
[2019-12-31] MEDS: CITALOPRAM 20 MG TAB PO SCH (08:58)
[2019-12-31] MEDS: ATORVASTATIN 40 MG TAB PO SCH (08:58)
[2019-12-31] MEDS: CLOPIDOGREL BISULFATE 75 MG TAB PO SCH (08:59)
[2019-12-31] MEDS: LISINOPRIL/HCTZ 20/12.5MG 1 TAB TAB PO SCH (08:59)
[2019-12-31] MEDS: INSULIN ASPART 100 UNITS/ML 3 ML PEN SC SCH ×4 (09:05→21:36)
[2019-12-31] MEDS: DOCUSATE SODIUM 100 MG CAP PO SCH ×2 (11:34→19:59)
--- NOTE | 2019-12-31 12:13 | Psychiatric Progress Note ---
Date of Service December 31, 2019 Impression / Recommendations Impression 49-year-old male with a history of delusional disorder who presents with diana psychosis in the context of medication noncompliance, having stopped his risperidone and citalopram as he believed they were being tampered with. He has extensive delusions of persecution, which may result in him losing his housing, as he may be evicted due to threatening other residents in his apartment complex. He believes he is being targeted by unknown others and that his food and medications are being tampered with, he is being poisoned, and does not trust anyone including his family or outpatient medical providers. He is angry, agitated, and lacks any insight into his condition, refusing to sign releases or take medications, and believes he is being held here as part of a science experiment, and that staff are not really doctors/nurses. I have filed for 303 involuntary commitment with hearing to be held tomorrow, and I am recommending medications over objection due to the severity of his symptoms and the need for immediate treatment to address his psychosis. 12/30/19 update: The patient agreed to take haloperidol 10 mg by mouth this morning after a second opinion in favor of medications over objections was rendered. (It was necessary to call security, but eventually the patient did agree to take the medication orally). There seems to have been an initial favorable response. After sleeping, the patient got out of bed, joined other patients in the day room, and was able to interact in a polite manner with staff. Given what appears to be a fairly rapid and favorable response to haloperidol, the plan will be to discontinue the order for risperidone (which the patient has not yet taken) and continue Haldol 10 mg by mouth twice a day with an order for Haldol 5 mg IM for refusal of p.o. Haldol. (1) Delusional disorder, persecutory type: 12/28 -presentation similar to previous hospitalization in April 2019. Floridly delusional, disorganized, agitated. Delusions are directing behavior, resulting in not eating (believes food is being poisoned), not interacting w/ family/supports, not taking medications, and threatening residents at his apt complex which may result in homelessness. He is hypertensive here, with elevated transaminases, unclear if this is related to medication nonadherence or some other underlying medical issue. He lacks any insight into his condition, does not feel he needs hospitalization or treatment, and is refusing to sign CHERY's to allow us to coordinate with his outpatient providers or family. I do not know if he ever followed up with outpatient mental health services, but had been referred to [facility] for case management, and to [facility] for psychiatry and therapy. His brother was a good source of support during his previous hospitalization, and we will encourage patient to allow family to become involved. He is currently angry and unwilling. -I have resumed risperidone 1 mg twice daily as he had a good response to this in April, but he is refusing it. I recommend medications over objection as his psychotic symptoms responded to medication in the past and are unlikely to remit without antipsychotic medication, and he is at acute risk to both himself and others if he continues to be psychotic. -Monitoring on atypical antipsychotic: FLP was normal on 04/13/2019. Fasting glucose this morning was normal. -Continue to gather information toward the need for ongoing involuntary treatment, and consider a 304 IOC. -Contact PCPs office to clarify whether patient got the brain MRI that we had recommended on discharge in the spring. Also clarify whether he has had elevated LFTs before (see below). 12/29 -Initially this morning the patient continued to demonstrate florid psychosis. More specifically, he continues to accuse the staff of tampering with his food and attempting to poison him by similarly tampering with his medications. Within this context, he was refusing all medications, including nonpsychiatric medications as well as psychiatric medications, and he was also essentially refusing to eat. He has been consuming fluids, as long as we give them to him in the form of bottled water that is sealed. -A second opinion for medications over objection was provided, and the patient was offered a choice of oral haloperidol or IM haloperidol. He agreed agreed to take Haldol 10 mg by mouth, but declined a oral dose of lorazepam that have been offered. After sleeping for an hour or 2, the patient got up, began walking around the unit and exploring things, and began to interact more appropriately with staff, although he was disinclined to speak at any length and asked to be excused from conversations, "for right now." He also acknowledged that he was feeling significantly better, and eventually stated that he felt that the medication that he had been given had been helpful to him. He remains to be seen if he will continue to take oral psychiatric medications, and an order for medications over objection remains in place.-- -Given what appears to be a robust response to Haldol 10 mg by mouth, we decided to discontinue risperidone (which never been actually given because the patient had refused to take it voluntarily) in favor of haloperidol 10 mg twice a day. As above, an order for haloperidol 5 mg IM as needed for refusal of p.o Haldol is in place. There is also an order for as needed oral Haldol and an order in place for as needed benztropine for EPS.. 12/30 -Appearing a little better consolidated and cooperative today following first doses of Haldol. He is complaining of increased muscle tightness but not overtly dystonic and will initiate standing dose of Cogentin 0.5 mg twice daily -We will also initiate docusate 100 mg p.o. twice daily and encouraged him to push p.o. fluids for complaint of constipation, particularly in starting the standing Cogentin (2) Depressive disorder, not elsewhere classified: 12/28 -resumed citalopram 10 mg daily; try to gather information from family or friends regarding recent mood symptoms, once patient is willing. 12/29 -The patient has not yet agreed to take citalopram. We will continue to encourage him to take it as prescribed. However, as above, the patient's mood appears to have improved and that he is seemingly significantly less irritable. (3) Hypertension: 12/28 -continue home dose of lisinopril/hydrochlorothiazide monitor blood pressure. Current hypertension may be due to agitation, continue to monitor. (4) Elevated transaminase level: 12/28 -AST 51 and ALT 109, unclear if he has chronic elevation, as we have no previous results (when he was here in 04/2019, no LFTs were done and he was referred from an outside hospital ER). -I have asked staff to contact his PCP to determine whether this has been an issue before. Recommend rechecking labs in a few days. 12/29 -Repeat liver panel scheduled for 01/02/2020. (5) Type II diabetes mellitus: 12/28 -continue home dose of insulin, diabetic diet, and consult pharmacist for glycemic control/management. 12/29 -With significant amount of effort on the part of the staff, the patient did agree to allow his blood glucose level to be wave tested this morning. The measured level was within normal limits, but this is within the context of his refusal of most foods and all caloric drinks. 12/30 -Blood sugar stable (6) Coronary arteriosclerosis: 12/28 -continue home doses of atorvastatin and Plavix 12/29 -The patient is continuing to refuse doses of ever statin and Plavix, but within the above referenced evidence of favorable response to haloperidol given in the late morning, we are hopeful that the patient's willingness to cooperate with medications and his ability to trust staff well allow him to resume have a statin and Plavix as ordered. Interval History Chief Complaint "I am just trying to get through my day". Review of Systems Notes Muscle stiffness Sleep Information Total Hours of Sleep: 11.5 Meal Information Percent Meal Consumed - Breakfast: 0 Percent Meal Consumed - Lunch: 50 Percent Meal Consumed - Dinner: 75 Nutrition Comment: pt ate a bag of pretzels Subjective Subjective Patient was seen & assessed and interval progress reviewed with treatment team. Per staff, patient initially presented as paranoid believing that people were trying to poison him with food and medications but was more willing to eat and take his psychotropics yesterday following Haldol administration. Medications over objection were seconded by Dr. Mendoza yesterday. He took the Haldol orally in the presence of security rather than taking the IM. 303 hearing yesterday was postponed until Thursday due to some sort of scheduling issue with the public health training assistant. Confirmed 303 hearing is scheduled before expiration of 302. Today he appears a little brusque but cooperative. He is somatically preoccupied and complains of recent constipation with small bowel movement yesterday, feels his muscles are more stiff today, and perceives no need for psychiatric treatment stating that everything was going along fine until he ended up in the hospital. Physical Exam Psychiatric Orientation: alert and + guarded Apperance: + disheveled Eye Contact: + poor eye contact Motor Behavior: + psychomotor retardation Speech: no pressured speech and no loud speech Affect: + irritable affect (mild) "fine" Thought Process: + concrete thought process Thought Content: + preoccupation and + paranoid Hallucinations: no auditory hallucinations Cognition: language grossly intact; + recent memory not intact Estimated Intelligence: average estimated intelligence Insight: + poor insight Judgement: + poor judgement Vital Signs (Past 24 Hours) Last Vital Signs Temp 36.9 C 12/31/19 06:39 Pulse 78 12/31/19 06:40 Resp 16 12/31/19 06:39 BP 138/84 12/31/19 06:40 Pulse Ox 97 12/28/19 17:56 Results & Data ([facility]) Laboratory Results Laboratory Results - last 24 hr 12/30/19 12/30/19 12/31/19 13:23 17:18 08:47 POC Glucose 90 113 H 102 H Current Inpatient Medications Current Inpatient Medications: Current Inpatient Medications Acetaminophen (Acetaminophen 325 Mg Tab) 650 mg PO Q4H PRN PRN Reason: Headache or Minor Fever Stop: 01/27/20 16:59 Al Hydrox/Mg Hydrox/Simethicone (Aluminum/Magnesium Susp 30 Ml Udc) 30 ml PO Q4H PRN PRN Reason: GI Upset Stop: 01/27/20 16:59 Atorvastatin Calcium (Atorvastatin 40 Mg Tab) 80 mg PO DAILY [facility] Stop: 01/28/20 08:59 Last Admin: 12/31/19 08:58 Dose: 80 mg Documented by: Benztropine Mesylate (Benztropine Mesylate 1 Mg Tab) 2 mg PO BID PRN PRN Reason: Extra Pyramidal Symptoms Stop: 01/29/20 10:37 Benztropine Mesylate (Benztropine Mesylate 0.5 Mg Tab) 0.5 mg PO BID [facility] Stop: 01/30/20 20:59 Bismuth Subsalicylate (Bismuth Subsalicylate Liqd 236 Ml) 15 ml PO PRN PRN PRN Reason: Loose Stool Stop: 01/27/20 16:59 Citalopram Hydrobromide (Citalopram 20 Mg Tab) 10 mg PO QAM [facility] Stop: 01/28/20 08:59 Last Admin: 12/31/19 08:58 Dose: 10 mg Documented by: Clopidogrel Bisulfate (Clopidogrel Bisulfate 75 Mg Tab) 75 mg PO DAILY [facility]Y Stop: 01/28/20 08:59 Last Admin: 12/31/19 08:59 Dose: 75 mg Documented by: Dextrose (Dextrose 50% 50 Ml Syringe) 25 - 50 ml IV UD PRN; Protocol PRN Reason: Hypoglycemia Protocol Stop: 01/27/20 17:14 Docusate Sodium (Docusate Sodium 100 Mg Cap) 100 mg PO BID AMY Stop: 01/30/20 10:14 Last Admin: 12/31/19 11:34 Dose: 100 mg Documented by: Glucagon (Glucagon For Inj 1 Mg Vial) 1 mg IM UD PRN; Protocol PRN Reason: Hypoglycemia Protocol Stop: 01/27/20 17:14 Glucose (Glucose 40% Gel 15 Gm Tube) 15 - 30 gm PO UD PRN; Protocol PRN Reason: Hypoglycemia Protocol Stop: 01/27/20 17:14 Glucose (Glucose 10 Tabs/Tube) 4 - 8 tabs PO UD PRN; Protocol PRN Reason: Hypoglycemia Protocol Stop: 01/27/20 17:14 Lisinopril/HCTZ (Lisinopril/Hctz 20/12.5mg 1 Tab Tab) 1 tab PO DAILY AMY Stop: 01/28/20 08:59 Last Admin: 12/31/19 08:59 Dose: 1 tab Documented by: Haloperidol (Haloperidol 5 Mg Tab) 5 mg PO Q6 PRN PRN Reason: Anxiety/Agitation Stop: 01/27/20 18:12 Haloperidol (Haloperidol 5 Mg Tab) 10 mg PO BID AMY Stop: 01/29/20 20:59 Last Admin: 12/31/19 08:57 Dose: 10 mg Documented by: Haloperidol Lactate (Haloperidol Lactate 5 Mg/Ml 1 Ml Vial) 5 mg IM BID PRN PRN Reason: Refusal of PO Halopeidol Stop: 01/29/20 13:59 Hydroxyzine HCl (Hydroxyzine Hcl 25 Mg Tab) 50 mg PO HSZ PRN PRN Reason: Insomnia Stop: 01/27/20 16:59 Hydroxyzine HCl (Hydroxyzine Hcl 25 Mg Tab) 25 mg PO Q4H PRN PRN Reason: Anxiety Stop: 01/27/20 16:59 Insulin Aspart (Insulin Aspart 100 Units/Ml 3 Ml Pen) 0 units SC ACHS [facility] Stop: 01/27/20 20:59 Last Admin: 12/31/19 09:05 Dose: Not Given Documented by: Lorazepam (Lorazepam 1 Mg Tab) 1 mg PO Q6 PRN PRN Reason: Anxiety/Agitation Stop: 01/27/20 18:12 Magnesium Hydroxide (Magnesium Hydroxide Susp 30 Ml Udc) 30 ml PO DAILY PRN PRN Reason: Constipation Stop: 01/27/20 16:59 Miscellaneous (Carbohydrates For Hypoglycemia ) 15 - 30 gm PO UD PRN PRN Reason: Hypoglycemia Treatment Stop: 01/27/20 17:14 Miscellaneous Information (Pharmacy Glycemic Mgmt Consult) 1 ea N/A UD PRN PRN Reason: Consult Stop: 01/27/20 17:07 Sodium Chloride (Sodium Chloride 0.65% Na Soln 45 Ml ([place])) 1 - 2 sprays NA PRN PRN PRN Reason: Nasal Dryness/Congestion Stop: 01/27/20 16:59 Mental Health & Subst Abuse Tx Therapist Name of Therapist: None Furniture Finisher Helper Name of Furniture Finisher Helper: None Post Discharge Appointments Primary Care Physician Name Of Family Doctor: Adonay Mcmahon
[2019-12-31] MEDS: BENZTROPINE MESYLATE 0.5 MG TAB PO SCH (19:59)
[2020-01-01] MEDS: INSULIN ASPART 100 UNITS/ML 3 ML PEN SC SCH ×4 (09:07→20:54)
[2020-01-01] MEDS: BENZTROPINE MESYLATE 0.5 MG TAB PO SCH ×2 (09:08→20:57)
[2020-01-01] MEDS: CITALOPRAM 20 MG TAB PO SCH (09:08)
[2020-01-01] MEDS: DOCUSATE SODIUM 100 MG CAP PO SCH ×2 (09:08→20:57)
[2020-01-01] MEDS: ATORVASTATIN 40 MG TAB PO SCH (09:09)
[2020-01-01] MEDS: haloperidoL 5 MG TAB PO SCH ×2 (09:09→20:58)
[2020-01-01] MEDS: LISINOPRIL/HCTZ 20/12.5MG 1 TAB TAB PO SCH (09:09)
[2020-01-01] MEDS: CLOPIDOGREL BISULFATE 75 MG TAB PO SCH (09:09)
--- NOTE | 2020-01-01 15:52 | Psychiatric Progress Note ---
Date of Service January 01, 2020 Impression / Recommendations Impression Per admitting provider: 49-year-old male with a history of delusional disorder who presents with diana psychosis in the context of medication noncompliance, having stopped his risperidone and citalopram as he believed they were being tampered with. He has extensive delusions of persecution, which may result in him losing his housing, as he may be evicted due to threatening other residents in his apartment complex. He believes he is being targeted by unknown others and that his food and medications are being tampered with, he is being poisoned, and does not trust anyone including his family or outpatient medical providers. He is angry, agitated, and lacks any insight into his condition, refusing to sign releases or take medications, and believes he is being held here as part of a science experiment, and that staff are not really doctors/nurses. I have filed for 303 involuntary commitment with hearing to be held tomorrow, and I am recommending medications over objection due to the severity of his symptoms and the need for immediate treatment to address his psychosis. (1) Delusional disorder, persecutory type: 12/28 -presentation similar to previous hospitalization in April 2019. Floridly delusional, disorganized, agitated. Delusions are directing behavior, resulting in not eating (believes food is being poisoned), not interacting w/ family/supports, not taking medications, and threatening residents at his apt complex which may result in homelessness. He is hypertensive here, with elevated transaminases, unclear if this is related to medication nonadherence or some other underlying medical issue. He lacks any insight into his condition, does not feel he needs hospitalization or treatment, and is refusing to sign CHERY's to allow us to coordinate with his outpatient providers or family. I do not know if he ever followed up with outpatient mental health services, but had been referred to [facility] for case management, and to [facility] for psychiatry and therapy. His brother was a good source of support during his previous hospitalization, and we will encourage patient to allow family to become involved. He is currently angry and unwilling. -I have resumed risperidone 1 mg twice daily as he had a good response to this in April, but he is refusing it. I recommend medications over objection as his psychotic symptoms responded to medication in the past and are unlikely to remit without antipsychotic medication, and he is at acute risk to both himself and others if he continues to be psychotic. -Monitoring on atypical antipsychotic: FLP was normal on 04/13/2019. Fasting glucose this morning was normal. -Continue to gather information toward the need for ongoing involuntary treatment, and consider a 304 IOC. -Contact PCPs office to clarify whether patient got the brain MRI that we had recommended on discharge in the spring. Also clarify whether he has had elevated LFTs before (see below). 12/29 -Initially this morning the patient continued to demonstrate florid psychosis. More specifically, he continues to accuse the staff of tampering with his food and attempting to poison him by similarly tampering with his medications. Within this context, he was refusing all medications, including nonpsychiatric medications as well as psychiatric medications, and he was also essentially refusing to eat. He has been consuming fluids, as long as we give them to him in the form of bottled water that is sealed. -A second opinion for medications over objection was provided, and the patient was offered a choice of oral haloperidol or IM haloperidol. He agreed agreed to take Haldol 10 mg by mouth, but declined a oral dose of lorazepam that have been offered. After sleeping for an hour or 2, the patient got up, began walking around the unit and exploring things, and began to interact more appropriately with staff, although he was disinclined to speak at any length and asked to be excused from conversations, "for right now." He also acknowledged that he was feeling significantly better, and eventually stated that he felt that the medication that he had been given had been helpful to him. He remains to be seen if he will continue to take oral psychiatric medications, and an order for medications over objection remains in place.-- -Given what appears to be a robust response to Haldol 10 mg by mouth, we decided to discontinue risperidone (which never been actually given because the patient had refused to take it voluntarily) in favor of haloperidol 10 mg twice a day. As above, an order for haloperidol 5 mg IM as needed for refusal of p.o Haldol is in place. There is also an order for as needed oral Haldol and an order in place for as needed benztropine for EPS.. 12/30 -Appearing a little better consolidated and cooperative today following first doses of Haldol. He is complaining of increased muscle tightness but not overtly dystonic and will initiate standing dose of Cogentin 0.5 mg twice daily -We will also initiate docusate 100 mg p.o. twice daily and encouraged him to push p.o. fluids for complaint of constipation, particularly in starting the standing Cogentin 12/31 -Demonstrating continued improvement with reduced overt paranoia, reduced irritability, improving compliance with treatment recommendations on Haldol -Continue Cogentin which appears effective for muscle tightness (2) Depressive disorder, not elsewhere classified: 12/28 -resumed citalopram 10 mg daily; try to gather information from family or friends regarding recent mood symptoms, once patient is willing. 12/29 -The patient has not yet agreed to take citalopram. We will continue to encourage him to take it as prescribed. However, as above, the patient's mood appears to have improved and that he is seemingly significantly less irritable. 12/31 -Mood improving which appears most likely due to reduced delusional thought content and associated distress -He is again compliant with 10 mg daily dose of Celexa (3) Hypertension: 12/28 -continue home dose of lisinopril/hydrochlorothiazide monitor blood pressure. Current hypertension may be due to agitation, continue to monitor. 12/31 -Pressures have improved but remain mildly elevated. We will continue to monitor. Has been compliant with last 2 doses of his home dose lisinopril/hydrochlorothiazide (4) Elevated transaminase level: 12/28 -AST 51 and ALT 109, unclear if he has chronic elevation, as we have no previous results (when he was here in 04/2019, no LFTs were done and he was referred from an outside hospital ER). -I have asked staff to contact his PCP to determine whether this has been an issue before. Recommend rechecking labs in a few days. 12/29 -Repeat liver panel scheduled for 01/02/2020. 12/31 -order for cmp thursday AM placed to trend LFT's (5) Type II diabetes mellitus: 12/28 -continue home dose of insulin, diabetic diet, and consult pharmacist for glycemic control/management. 12/29 -With significant amount of effort on the part of the staff, the patient did agree to allow his blood glucose level to be wave tested this morning. The measured level was within normal limits, but this is within the context of his refusal of most foods and all caloric drinks. 12/30 -Blood sugar stable (6) Coronary arteriosclerosis: 12/28 -continue home doses of atorvastatin and Plavix 12/29 -The patient is continuing to refuse doses of ever statin and Plavix, but within the above referenced evidence of favorable response to haloperidol given in the late morning, we are hopeful that the patient's willingness to cooperate with medications and his ability to trust staff well allow him to resume have a statin and Plavix as ordered. Interval History Chief Complaint "I have turned my frown upside down". Review of Systems Sleep Information Total Hours of Sleep: 7.75 Meal Information Percent Meal Consumed - Breakfast: 80 Percent Meal Consumed - Lunch: 75 Percent Meal Consumed - Dinner: 90 Nutrition Comment: pt ate a bag of pretzels Subjective Subjective Patient was seen & assessed and interval progress reviewed with treatment team. No acute events overnight. Patient has been compliant with his psychotropics. Spending more time outside of room. Rated his mood as 6 out of 10 last evening. He reports muscle cramping has improved with Cogentin and moving his bowels without constipation on stool softener. He describes interval improvement in mood. He tells me that he apologized to the staff for treating them rudely when he was first admitted. Has been writing some poetry in his workbook which he shared with me and was consistently positive in theme. Physical Exam Psychiatric Orientation: alert and cooperative Apperance: appropriately dressed and appropriately groomed Eye Contact: good eye contact Motor Behavior: no psychomotor agitation and n EPS Speech: normal rate/rhythm/volume of speech Affect: euthymic affect Mood: no depressed mood and no anxious mood Thought Process: + tangential thought process and + concrete thought process Thought Content: + paranoid (much less evident today) Suicidal Thoughts: denies suicidal thoughts Homicidal Thoughts: denies homicidal thoughts Hallucinations: no auditory hallucinations Insight: + limited insight Judgement: + limited judgement Vital Signs (Past 24 Hours) Last Vital Signs Temp 36.5 C 01/01/20 06:38 Pulse 82 01/01/20 06:38 Resp 16 01/01/20 06:38 BP 151/89 H 01/01/20 06:38 Pulse Ox 97 12/28/19 17:56 Results & Data ([facility]) Laboratory Results Laboratory Results - last 24 hr 12/31/19 12/31/19 01/01/20 17:03 20:18 08:46 POC Glucose 102 H 127 H 124 H 01/01/20 12:20 POC Glucose 111 H Current Inpatient Medications Current Inpatient Medications: Current Inpatient Medications Acetaminophen (Acetaminophen 325 Mg Tab) 650 mg PO Q4H PRN PRN Reason: Headache or Minor Fever Stop: 01/27/20 16:59 Al Hydrox/Mg Hydrox/Simethicone (Aluminum/Magnesium Susp 30 Ml Udc) 30 ml PO Q4H PRN PRN Reason: GI Upset Stop: 01/27/20 16:59 Atorvastatin Calcium (Atorvastatin 40 Mg Tab) 80 mg PO DAILY AMY Stop: 01/28/20 08:59 Last Admin: 01/01/20 09:09 Dose: 80 mg Documented by: Benztropine Mesylate (Benztropine Mesylate 1 Mg Tab) 2 mg PO BID PRN PRN Reason: Extra Pyramidal Symptoms Stop: 01/29/20 10:37 Benztropine Mesylate (Benztropine Mesylate 0.5 Mg Tab) 0.5 mg PO BID AMY Stop: 01/30/20 20:59 Last Admin: 01/01/20 09:08 Dose: 0.5 mg Documented by: Bismuth Subsalicylate (Bismuth Subsalicylate Liqd 236 Ml) 15 ml PO PRN PRN PRN Reason: Loose Stool Stop: 01/27/20 16:59 Citalopram Hydrobromide (Citalopram 20 Mg Tab) 10 mg PO QAM AMY Stop: 01/28/20 08:59 Last Admin: 01/01/20 09:08 Dose: 10 mg Documented by: Clopidogrel Bisulfate (Clopidogrel Bisulfate 75 Mg Tab) 75 mg PO DAILY AMY Stop: 01/28/20 08:59 Last Admin: 01/01/20 09:09 Dose: 75 mg Documented by: Dextrose (Dextrose 50% 50 Ml Syringe) 25 - 50 ml IV UD PRN; Protocol PRN Reason: Hypoglycemia Protocol Stop: 01/27/20 17:14 Docusate Sodium (Docusate Sodium 100 Mg Cap) 100 mg PO BID AMY Stop: 01/30/20 10:14 Last Admin: 01/01/20 09:08 Dose: 100 mg Documented by: Glucagon (Glucagon For Inj 1 Mg Vial) 1 mg IM UD PRN; Protocol PRN Reason: Hypoglycemia Protocol Stop: 01/27/20 17:14 Glucose (Glucose 40% Gel 15 Gm Tube) 15 - 30 gm PO UD PRN; Protocol PRN Reason: Hypoglycemia Protocol Stop: 01/27/20 17:14 Glucose (Glucose 10 Tabs/Tube) 4 - 8 tabs PO UD PRN; Protocol PRN Reason: Hypoglycemia Protocol Stop: 01/27/20 17:14 Lisinopril/HCTZ (Lisinopril/Hctz 12.5mg 1 Tab Tab) 1 tab PO DAILY AMY Stop: 01/28/20 08:59 Last Admin: 01/01/20 09:09 Dose: 1 tab Documented by: Haloperidol (Haloperidol 5 Mg Tab) 5 mg PO Q6 PRN PRN Reason: Anxiety/Agitation Stop: 01/27/20 18:12 Haloperidol (Haloperidol 5 Mg Tab) 10 mg PO BID AMY Stop: 01/29/20 20:59 Last Admin: 01/01/20 09:09 Dose: 10 mg Documented by: Haloperidol Lactate (Haloperidol Lactate 5 Mg/Ml 1 Ml Vial) 5 mg IM BID PRN PRN Reason: Refusal of PO Halopeidol Stop: 01/29/20 13:59 Hydroxyzine HCl (Hydroxyzine Hcl 25 Mg Tab) 50 mg PO HSZ PRN PRN Reason: Insomnia Stop: 01/27/20 16:59 Hydroxyzine HCl (Hydroxyzine Hcl 25 Mg Tab) 25 mg PO Q4H PRN PRN Reason: Anxiety Stop: 01/27/20 16:59 Insulin Aspart (Insulin Aspart 100 Units/Ml 3 Ml Pen) 0 units SC ACHS AMY Stop: 01/27/20 20:59 Last Admin: 01/01/20 13:25 Dose: 2 units Documented by: Lorazepam (Lorazepam 1 Mg Tab) 1 mg PO Q6 PRN PRN Reason: Anxiety/Agitation Stop: 01/27/20 18:12 Magnesium Hydroxide (Magnesium Hydroxide Susp 30 Ml Udc) 30 ml PO DAILY PRN PRN Reason: Constipation Stop: 01/27/20 16:59 Miscellaneous (Carbohydrates For Hypoglycemia ) 15 - 30 gm PO UD PRN PRN Reason: Hypoglycemia Treatment Stop: 01/27/20 17:14 Miscellaneous Information (Pharmacy Glycemic Mgmt Consult) 1 ea N/A UD PRN PRN Reason: Consult Stop: 01/27/20 17:07 Sodium Chloride (Sodium Chloride 0.65% Na Soln 45 Ml (Se[place]ert)) 1 - 2 sprays NA PRN PRN PRN Reason: Nasal Dryness/Congestion Stop: 01/27/20 16:59 Mental Health & Subst Abuse Tx Therapist Name of Therapist: saw therapist at [facility] [place] stopped after Covid Tile Edger Name of Tile Edger: None Post Discharge Appointments Primary Care Physician Name Of Family Doctor: Lisandro AMAYA [facility]
--- NOTE | 2020-01-02 08:36 | Psychiatric Progress Note ---
Date of Service January 02, 2020 Impression / Recommendations Impression Per admitting provider: 49-year-old male with a history of delusional disorder who presents with diana psychosis in the context of medication noncompliance, having stopped his risperidone and citalopram as he believed they were being tampered with. He has extensive delusions of persecution, which may result in him losing his housing, as he may be evicted due to threatening other residents in his apartment complex. He believes he is being targeted by unknown others and that his food and medications are being tampered with, he is being poisoned, and does not trust anyone including his family or outpatient medical providers. He is angry, agitated, and lacks any insight into his condition, refusing to sign releases or take medications, and believes he is being held here as part of a science experiment, and that staff are not really doctors/nurses. I have filed for 303 involuntary commitment with hearing to be held tomorrow, and I am recommending medications over objection due to the severity of his symptoms and the need for immediate treatment to address his psychosis. (1) Delusional disorder, persecutory type: 12/28 -presentation similar to previous hospitalization in April 2019. Floridly delusional, disorganized, agitated. Delusions are directing behavior, resulting in not eating (believes food is being poisoned), not interacting w/ family/supports, not taking medications, and threatening residents at his apt complex which may result in homelessness. He is hypertensive here, with elevated transaminases, unclear if this is related to medication nonadherence or some other underlying medical issue. He lacks any insight into his condition, does not feel he needs hospitalization or treatment, and is refusing to sign CHERY's to allow us to coordinate with his outpatient providers or family. I do not know if he ever followed up with outpatient mental health services, but had been referred to [facility] for case management, and to [facility] for psychiatry and therapy. His brother was a good source of support during his previous hospitalization, and we will encourage patient to allow family to become involved. He is currently angry and unwilling. -I have resumed risperidone 1 mg twice daily as he had a good response to this in April, but he is refusing it. I recommend medications over objection as his psychotic symptoms responded to medication in the past and are unlikely to remit without antipsychotic medication, and he is at acute risk to both himself and others if he continues to be psychotic. -Monitoring on atypical antipsychotic: FLP was normal on 04/13/2019. Fasting glucose this morning was normal. -Continue to gather information toward the need for ongoing involuntary treatment, and consider a 304 IOC. -Contact PCPs office to clarify whether patient got the brain MRI that we had recommended on discharge in the spring. Also clarify whether he has had elevated LFTs before (see below). 12/29 -Initially this morning the patient continued to demonstrate florid psychosis. More specifically, he continues to accuse the staff of tampering with his food and attempting to poison him by similarly tampering with his medications. Within this context, he was refusing all medications, including nonpsychiatric medications as well as psychiatric medications, and he was also essentially refusing to eat. He has been consuming fluids, as long as we give them to him in the form of bottled water that is sealed. -A second opinion for medications over objection was provided, and the patient was offered a choice of oral haloperidol or IM haloperidol. He agreed agreed to take Haldol 10 mg by mouth, but declined a oral dose of lorazepam that have been offered. After sleeping for an hour or 2, the patient got up, began walking around the unit and exploring things, and began to interact more appropriately with staff, although he was disinclined to speak at any length and asked to be excused from conversations, "for right now." He also acknowledged that he was feeling significantly better, and eventually stated that he felt that the medication that he had been given had been helpful to him. He remains to be seen if he will continue to take oral psychiatric medications, and an order for medications over objection remains in place.-- -Given what appears to be a robust response to Haldol 10 mg by mouth, we decided to discontinue risperidone (which never been actually given because the patient had refused to take it voluntarily) in favor of haloperidol 10 mg twice a day. As above, an order for haloperidol 5 mg IM as needed for refusal of p.o Haldol is in place. There is also an order for as needed oral Haldol and an order in place for as needed benztropine for EPS.. 12/30 -Appearing a little better consolidated and cooperative today following first doses of Haldol. He is complaining of increased muscle tightness but not overtly dystonic and will initiate standing dose of Cogentin 0.5 mg twice daily -We will also initiate docusate 100 mg p.o. twice daily and encouraged him to push p.o. fluids for complaint of constipation, particularly in starting the standing Cogentin 12/31 -Demonstrating continued improvement with reduced overt paranoia, reduced irritability, improving compliance with treatment recommendations on Haldol -Continue Cogentin which appears effective for muscle tightness 01/01 -303 hearing held. -Continue current medications, encourage transition to Haldol Decanoate to improve adherence. -Patient has now signed releases to allow us to refer him for a field case manager through [facility], and return to [facility] for psychiatry and therapy. He is also agreeing to a family meeting with his brother, Shayne. (2) Depressive disorder, not elsewhere classified: 12/28 -resumed citalopram 10 mg daily; try to gather information from family or friends regarding recent mood symptoms, once patient is willing. 12/29 -The patient has not yet agreed to take citalopram. We will continue to encourage him to take it as prescribed. However, as above, the patient's mood appears to have improved and that he is seemingly significantly less irritable. 12/31 -Mood improving which appears most likely due to reduced delusional thought content and associated distress -He is again compliant with 10 mg daily dose of Celexa (3) Hypertension: 12/28 -continue home dose of lisinopril/hydrochlorothiazide monitor blood pressure. Current hypertension may be due to agitation, continue to monitor. 12/31 -Pressures have improved but remain mildly elevated. We will continue to monitor. Has been compliant with last 2 doses of his home dose lisinopril/hydrochlorothiazide (4) Elevated transaminase level: 12/28 -AST 51 and ALT 109, unclear if he has chronic elevation, as we have no previous results (when he was here in 04/2019, no LFTs were done and he was referred from an outside hospital ER). -I have asked staff to contact his PCP to determine whether this has been an issue before. Recommend rechecking labs in a few days. 12/29 -Repeat liver panel scheduled for 01/02/2020. 12/31 -order for cmp thursday AM placed to trend LFT's (5) Type II diabetes mellitus: 12/28 -continue home dose of insulin, diabetic diet, and consult pharmacist for glycemic control/management. 12/29 -With significant amount of effort on the part of the staff, the patient did agree to allow his blood glucose level to be wave tested this morning. The measured level was within normal limits, but this is within the context of his refusal of most foods and all caloric drinks. 12/30 -Blood sugar stable (6) Coronary arteriosclerosis: 12/28 -continue home doses of atorvastatin and Plavix 12/29 -The patient is continuing to refuse doses of ever statin and Plavix, but within the above referenced evidence of favorable response to haloperidol given in the late morning, we are hopeful that the patient's willingness to cooperate with medications and his ability to trust staff well allow him to resume have a statin and Plavix as ordered. Interval History Identifying Information RUFINO HERNANDEZ is a 49-year-old M who currently lives alone in [place], has a history of delusional disorder persecutory type, and was admitted on 12/28/19 17:00 on a 302 involuntary commitment for psychosis and inability to care for himself. Chief Complaint "Better". Review of Systems Sleep Information Total Hours of Sleep: 7.75 Meal Information Percent Meal Consumed - Breakfast: 80 Percent Meal Consumed - Lunch: 75 Percent Meal Consumed - Dinner: 90 Nutrition Comment: pt ate a bag of pretzels Subjective Subjective Patient was seen & assessed and interval progress reviewed with treatment team. Staff report he has been calmer and attending groups, is eating better, but remains psychotic with prominent delusions of persecution (talking about his belief that people are repeatedly breaking into his home, and that his family is somehow involved with this). He also endorsed auditory hallucinations, stating he was hearing a clicking noises and believes these were coming from people's fingers and that this was a message to agitate him. He continues to lack insight, and becomes irritable with his delusions are challenged. He continues to refuse to sign releases for his PCP or family, and has no current outpatient psychiatric treatment as he stopped following up. His medication adherence has improved, as he was refusing medications the first 3 days on the unit, but has been taking haloperidol 10 mg twice daily for the past 3 days, and citalopram for the past 2 days. He has intermittently refused his antihypertensive medication, and blood pressure remains slightly elevated (147/79). On my assessment today, he states that overall he feels improved from admission, but cannot clarify what is better. He does think medication is making him "groggy," stating "I take a pile of meds," but does not know the names of any of them. He reports improved sleep, appetite, and mood, stating he is "pleased, happy to be waking up every day." His plan to address his concerns about his apartment being broken into and being harassed by others is to "try not to think about it." He talked to his brother Shayne, who lives near him, and is now willing for a family meeting. He says that he dropped out of outpatient treatment because of the pandemic, stating that he was told he needed to attend visits remotely, but he cannot remember computer passwords. Then he states he does not have a computer or smart phone, and that he is "too dumb" for a smart phone. He currently has no phone, but is considering getting a landline. He feels safe in the hospital, and is willing to return to outpatient treatment. He states that he received a letter from his apartment complex stating that if he continued to have problem behaviors, he would be evicted. He denies that he did anything wrong, stating they accused him of "smashing my truck into his pickup," but he did not do this. He believes another tenant in the apartment complex targeted him and told lies about him. He is focused on wanting to be discharged by the election so that he can vote, and agreed to sign ROIs for his PCP, [facility], [facility] just prior to his 303 hearing. He attended his 303 hearing and testified that he didn't have much to say, has been taking me dication here, and couldn't go to outpatient treatment because he didn't have a smartphone and can't remember passwords with computers or electronics, but agreed to get a flip phone. He did not contest the 303 and it was granted. Physical Exam Psychiatric Orientation: alert and cooperative Apperance: appropriately dressed, appropriately groomed and appeared stated age Eye Contact: + fair eye contact Motor Behavior: steady gait and station and no abnormal motor movements Speech: normal rate/rhythm/volume of speech Affect: euthymic affect and mood congruent with affect "Better." Thought Process: goal directed thought process Thought Content: + paranoid, + delusions and + persecution Suicidal Thoughts: denies suicidal thoughts Homicidal Thoughts: denies homicidal thoughts Hallucinations: no auditory hallucinations and no visual hallucinations Cognition: attention grossly intact and language grossly intact; + recent memory not intact (Does not recall the events surrounding admission clearly) Estimated Intelligence: average estimated intelligence Insight: + limited insight Judgement: + limited judgement Vital Signs (Past 24 Hours) Last Vital Signs Temp 36.4 C L 01/02/20 06:34 Pulse 86 01/02/20 06:34 Resp 16 01/02/20 06:34 BP 147/79 H 01/02/20 06:34 Pulse Ox 97 12/28/19 17:56 Results & Data ([facility]) Laboratory Results Laboratory Results - last 24 hr 01/01/20 01/01/20 01/01/20 08:46 12:20 17:26 POC Glucose 124 H 111 H 107 H 01/01/20 01/02/20 20:41 07:59 POC Glucose 137 H 128 H Current Inpatient Medications Current Inpatient Medications: Current Inpatient Medications Acetaminophen (Acetaminophen 325 Mg Tab) 650 mg PO Q4H PRN PRN Reason: Headache or Minor Fever Stop: 01/27/20 16:59 Al Hydrox/Mg Hydrox/Simethicone (Aluminum/Magnesium Susp 30 Ml Udc) 30 ml PO Q4H PRN PRN Reason: GI Upset Stop: 01/27/20 16:59 Atorvastatin Calcium (Atorvastatin 40 Mg Tab) 80 mg PO DAILY [facility] Stop: 01/28/20 08:59 Last Admin: 01/01/20 09:09 Dose: 80 mg Documented by: Benztropine Mesylate (Benztropine Mesylate 1 Mg Tab) 2 mg PO BID PRN PRN Reason: Extra Pyramidal Symptoms Stop: 01/29/20 10:37 Benztropine Mesylate (Benztropine Mesylate 0.5 Mg Tab) 0.5 mg PO BID AMY Stop: 01/30/20 20:59 Last Admin: 01/01/20 20:57 Dose: 0.5 mg Documented by: Bismuth Subsalicylate (Bismuth Subsalicylate Liqd 236 Ml) 15 ml PO PRN PRN PRN Reason: Loose Stool Stop: 01/27/20 16:59 Citalopram Hydrobromide (Citalopram 20 Mg Tab) 10 mg PO QAM [facility] Stop: 01/28/20 08:59 Last Admin: 01/01/20 09:08 Dose: 10 mg Documented by: Clopidogrel Bisulfate (Clopidogrel Bisulfate 75 Mg Tab) 75 mg PO DAILY AMY Stop: 01/28/20 08:59 Last Admin: 01/01/20 09:09 Dose: 75 mg Documented by: Dextrose (Dextrose 50% 50 Ml Syringe) 25 - 50 ml IV UD PRN; Protocol PRN Reason: Hypoglycemia Protocol Stop: 01/27/20 17:14 Docusate Sodium (Docusate Sodium 100 Mg Cap) 100 mg PO BID [facility] Stop: 01/30/20 10:14 Last Admin: 01/01/20 20:57 Dose: 100 mg Documented by: Glucagon (Glucagon For Inj 1 Mg Vial) 1 mg IM UD PRN; Protocol PRN Reason: Hypoglycemia Protocol Stop: 01/27/20 17:14 Glucose (Glucose 40% Gel 15 Gm Tube) 15 - 30 gm PO UD PRN; Protocol PRN Reason: Hypoglycemia Protocol Stop: 01/27/20 17:14 Glucose (Glucose 10 Tabs/Tube) 4 - 8 tabs PO UD PRN; Protocol PRN Reason: Hypoglycemia Protocol Stop: 01/27/20 17:14 Lisinopril/HCTZ (Lisinopril/Hctz 20/12.5mg 1 Tab Tab) 1 tab PO DAILY [facility] Stop: 01/28/20 08:59 Last Admin: 01/01/20 09:09 Dose: 1 tab Documented by: Haloperidol (Haloperidol 5 Mg Tab) 5 mg PO Q6 PRN PRN Reason: Anxiety/Agitation Stop: 01/27/20 18:12 Haloperidol (Haloperidol 5 Mg Tab) 10 mg PO BID [facility] Stop: 01/29/20 20:59 Last Admin: 01/01/20 20:58 Dose: 10 mg Documented by: Haloperidol Lactate (Haloperidol Lactate 5 Mg/Ml 1 Ml Vial) 5 mg IM BID PRN PRN Reason: Refusal of PO Halopeidol Stop: 01/29/20 13:59 Hydroxyzine HCl (Hydroxyzine Hcl 25 Mg Tab) 50 mg PO HSZ PRN PRN Reason: Insomnia Stop: 01/27/20 16:59 Hydroxyzine HCl (Hydroxyzine Hcl 25 Mg Tab) 25 mg PO Q4H PRN PRN Reason: Anxiety Stop: 01/27/20 16:59 Insulin Aspart (Insulin Aspart 100 Units/Ml 3 Ml Pen) 0 units SC ACHS AMY; Protocol Stop: 01/27/20 20:59 Last Admin: 01/01/20 20:54 Dose: 1 units Documented by: Lorazepam (Lorazepam 1 Mg Tab) 1 mg PO Q6 PRN PRN Reason: Anxiety/Agitation Stop: 01/27/20 18:12 Magnesium Hydroxide (Magnesium Hydroxide Susp 30 Ml Udc) 30 ml PO DAILY PRN PRN Reason: Constipation Stop: 01/27/20 16:59 Miscellaneous (Carbohydrates For Hypoglycemia ) 15 - 30 gm PO UD PRN PRN Reason: Hypoglycemia Treatment Stop: 01/27/20 17:14 Miscellaneous Information (Pharmacy Glycemic Mgmt Consult) 1 ea N/A UD PRN PRN Reason: Consult Stop: 01/27/20 17:07 Sodium Chloride (Sodium Chloride 0.65% Na Soln 45 Ml ([place])) 1 - 2 sprays NA PRN PRN PRN Reason: Nasal Dryness/Congestion Stop: 01/27/20 16:59 Mental Health & Subst Abuse Tx Therapist Name of Therapist: saw therapist at [facility] but stopped after Covid Supervisor [employer] Name of Supervisor [employer]: None Post Discharge Appointments Primary Care Physician Name Of Family Doctor: Lisandro AMAYA [facility]
[2020-01-02] MEDS: INSULIN ASPART 100 UNITS/ML 3 ML PEN SC SCH ×4 (08:59→20:43)
[2020-01-02] MEDS: CITALOPRAM 20 MG TAB PO SCH (09:00)
[2020-01-02] MEDS: DOCUSATE SODIUM 100 MG CAP PO SCH ×2 (09:01→20:42)
[2020-01-02] MEDS: ATORVASTATIN 40 MG TAB PO SCH (09:01)
[2020-01-02] MEDS: LISINOPRIL/HCTZ 20/12.5MG 1 TAB TAB PO SCH (09:02)
[2020-01-02] MEDS: CLOPIDOGREL BISULFATE 75 MG TAB PO SCH (09:02)
[2020-01-02] MEDS: haloperidoL 5 MG TAB PO SCH ×2 (09:03→20:42)
[2020-01-02] MEDS: BENZTROPINE MESYLATE 0.5 MG TAB PO SCH ×2 (09:03→20:42)
[2020-01-02 12:47] LABS: Albumin Level 3.9 gm/dl (3.4-5.0); BUN Creatinine Ratio 17.2 (10-20); Calcium 9.1 mg/dl (8.5-10.1); Creatinine Clr Calc Pharmacy 99.5 ml/min; Est GFR (African American) 83.2; Est GFR (Non-African American) 71.8; Potassium 3.8 mmol/L (3.5-5.1)
[2020-01-02 12:49] LABS: Albumin Globulin Ratio 0.9 (0.9-2); Bilirubin,Total 0.9 mg/dl (0.2-1); Globulin 4.3 gm/dl (2.5-4.0); Total Protein 8.2 gm/dl (6.4-8.2)
[2020-01-03] MEDS: CITALOPRAM 20 MG TAB PO SCH (08:33)
[2020-01-03] MEDS: BENZTROPINE MESYLATE 0.5 MG TAB PO SCH ×2 (08:35→20:54)
[2020-01-03] MEDS: DOCUSATE SODIUM 100 MG CAP PO SCH ×2 (08:36→20:54)
[2020-01-03] MEDS: haloperidoL 5 MG TAB PO SCH (08:36)
[2020-01-03] MEDS: CLOPIDOGREL BISULFATE 75 MG TAB PO SCH (08:37)
[2020-01-03] MEDS: LISINOPRIL/HCTZ 20/12.5MG 1 TAB TAB PO SCH (08:37)
[2020-01-03] MEDS: ATORVASTATIN 40 MG TAB PO SCH (08:37)
[2020-01-03] MEDS: INSULIN ASPART 100 UNITS/ML 3 ML PEN SC SCH ×4 (08:54→20:51)
--- NOTE | 2020-01-03 09:12 | Psychiatric Progress Note ---
Date of Service January 03, 2020 Impression / Recommendations Impression Per admitting provider: 49-year-old male with a history of delusional disorder who presents with diana psychosis in the context of medication noncompliance, having stopped his risperidone and citalopram as he believed they were being tampered with. He has extensive delusions of persecution, which may result in him losing his housing, as he may be evicted due to threatening other residents in his apartment complex. He believes he is being targeted by unknown others and that his food and medications are being tampered with, he is being poisoned, and does not trust anyone including his family or outpatient medical providers. He is angry, agitated, and lacks any insight into his condition, refusing to sign releases or take medications, and believes he is being held here as part of a science experiment, and that staff are not really doctors/nurses. I have filed for 303 involuntary commitment with hearing to be held tomorrow, and I am recommending medications over objection due to the severity of his symptoms and the need for immediate treatment to address his psychosis. (1) Delusional disorder, persecutory type: 12/28 -presentation similar to previous hospitalization in April 2019. Floridly delusional, disorganized, agitated. Delusions are directing behavior, resulting in not eating (believes food is being poisoned), not interacting w/ family/supports, not taking medications, and threatening residents at his apt complex which may result in homelessness. He is hypertensive here, with elevated transaminases, unclear if this is related to medication nonadherence or some other underlying medical issue. He lacks any insight into his condition, does not feel he needs hospitalization or treatment, and is refusing to sign CHERY's to allow us to coordinate with his outpatient providers or family. I do not know if he ever followed up with outpatient mental health services, but had been referred to [facility] for case management, and to [facility] for psychiatry and therapy. His brother was a good source of support during his previous hospitalization, and we will encourage patient to allow family to become involved. He is currently angry and unwilling. -I have resumed risperidone 1 mg twice daily as he had a good response to this in April, but he is refusing it. I recommend medications over objection as his psychotic symptoms responded to medication in the past and are unlikely to remit without antipsychotic medication, and he is at acute risk to both himself and others if he continues to be psychotic. -Monitoring on atypical antipsychotic: FLP was normal on 04/13/2019. Fasting glucose this morning was normal. -Continue to gather information toward the need for ongoing involuntary treatment, and consider a 304 IOC. -Contact PCPs office to clarify whether patient got the brain MRI that we had recommended on discharge in the spring. Also clarify whether he has had elevated LFTs before (see below). 12/29 -Initially this morning the patient continued to demonstrate florid psychosis. More specifically, he continues to accuse the staff of tampering with his food and attempting to poison him by similarly tampering with his medications. Within this context, he was refusing all medications, including nonpsychiatric medications as well as psychiatric medications, and he was also essentially refusing to eat. He has been consuming fluids, as long as we give them to him in the form of bottled water that is sealed. -A second opinion for medications over objection was provided, and the patient was offered a choice of oral haloperidol or IM haloperidol. He agreed agreed to take Haldol 10 mg by mouth, but declined a oral dose of lorazepam that have been offered. After sleeping for an hour or 2, the patient got up, began walking around the unit and exploring things, and began to interact more appropriately with staff, although he was disinclined to speak at any length and asked to be excused from conversations, "for right now." He also acknowledged that he was feeling significantly better, and eventually stated that he felt that the medication that he had been given had been helpful to him. He remains to be seen if he will continue to take oral psychiatric medications, and an order for medications over objection remains in place.-- -Given what appears to be a robust response to Haldol 10 mg by mouth, we decided to discontinue risperidone (which never been actually given because the patient had refused to take it voluntarily) in favor of haloperidol 10 mg twice a day. As above, an order for haloperidol 5 mg IM as needed for refusal of p.o Haldol is in place. There is also an order for as needed oral Haldol and an order in place for as needed benztropine for EPS.. 12/30 -Appearing a little better consolidated and cooperative today following first doses of Haldol. He is complaining of increased muscle tightness but not overtly dystonic and will initiate standing dose of Cogentin 0.5 mg twice daily -We will also initiate docusate 100 mg p.o. twice daily and encouraged him to push p.o. fluids for complaint of constipation, particularly in starting the standing Cogentin 12/31 -Demonstrating continued improvement with reduced overt paranoia, reduced irritability, improving compliance with treatment recommendations on Haldol -Continue Cogentin which appears effective for muscle tightness 01/01 -303 hearing held. -Continue current medications, encourage transition to Haldol Decanoate to improve adherence. -Patient has now signed releases to allow us to refer him for a rn case manager hospice through [facility], and return to [facility] for psychiatry and therapy. He is also agreeing to a family meeting with his brother, Shayne. 01/02 - We were informed 303 was granted following hearing yesterday - Continue current daily dose of 20mg total of haloperidol; however, patient is requesting adjustments to reduce daytime fatigue. Pt was agreeable with reducing AM dose to 5mg while titrating HS dose to 15mg. We discussed usual side effects of the medication includes some level of possible fatigue. - We did begin the conversation about Caro and recommendation for conversion to haloperidol decanoate - patient asked appropriate questions but was not yet open to committing to the medication change. - Pt denied other concerns today, denies safety concerns related to the idea of discharge - Continue to coordinate with outpatient and community supports regarding ways to improve compliance with medications and follow-up appointments (2) Depressive disorder, not elsewhere classified: 12/28 -resumed citalopram 10 mg daily; try to gather information from family or friends regarding recent mood symptoms, once patient is willing. 12/29 -The patient has not yet agreed to take citalopram. We will continue to encourage him to take it as prescribed. However, as above, the patient's mood appears to have improved and that he is seemingly significantly less irritable. 12/31 -Mood improving which appears most likely due to reduced delusional thought content and associated distress -He is again compliant with 10 mg daily dose of Celexa (3) Hypertension: 12/28 -continue home dose of lisinopril/hydrochlorothiazide monitor blood pressure. Current hypertension may be due to agitation, continue to monitor. 12/31 -Pressures have improved but remain mildly elevated. We will continue to monitor. Has been compliant with last 2 doses of his home dose lisinopril/hydrochlorothiazide 01/02 - Continues to be compliant with antihypertensive medications (4) Elevated transaminase level: 12/28 -AST 51 and ALT 109, unclear if he has chronic elevation, as we have no previous results (when he was here in 04/2019, no LFTs were done and he was referred from an outside hospital ER). -I have asked staff to contact his PCP to determine whether this has been an issue before. Recommend rechecking labs in a few days. 12/29 -Repeat liver panel scheduled for 01/02/2020. 12/31 -order for cmp thursday AM placed to trend LFT's 01/02 - AST even further elevated yesterday at 69, ALT remained at 109 - Will need to be followed by PCP for further monitoring and additional interventions as indicated (5) Type II diabetes mellitus: 12/28 -continue home dose of insulin, diabetic diet, and consult pharmacist for glycemic control/management. 12/29 -With significant amount of effort on the part of the staff, the patient did agree to allow his blood glucose level to be wave tested this morning. The measured level was within normal limits, but this is within the context of his refusal of most foods and all caloric drinks. 12/30 -Blood sugar stable (6) Coronary arteriosclerosis: 12/28 -continue home doses of atorvastatin and Plavix 12/29 -The patient is continuing to refuse doses of ever statin and Plavix, but within the above referenced evidence of favorable response to haloperidol given in the late morning, we are hopeful that the patient's willingness to cooperate with medications and his ability to trust staff well allow him to resume have a statin and Plavix as ordered. 01/02 - Pt has been more consistent with statin and Plavix for the past several days Interval History Identifying Information RUFINO HERNANDEZ is a 49-year-old M who currently lives alone in [place], has a history of delusional disorder persecutory type, and was admitted on 12/28/19 17:00 on a 302 involuntary commitment for psychosis and inability to care for himself. 303 granted following hearing on 01/02/2020. Chief Complaint "I'm feeling pretty groggy." Review of Systems Notes Constitutional: reports feeling "groggy" Cardiovascular: denied Respiratory: denied Gastrointestinal: denied Neurological: denied Psychiatric: denies symptoms other than stated above Total of at least 10 systems reviewed, pertinent positives as above and in HPI. Sleep Information Total Hours of Sleep: 7.25 Sleep Comments: pt on q-15 minute checks Meal Information Percent Meal Consumed - Breakfast: 100 Percent Meal Consumed - Lunch: 100 Percent Meal Consumed - Dinner: 100 Nutrition Comment: pt ate a bag of pretzels Subjective Subjective Patient was seen & assessed and interval progress reviewed with nursing and social work. Staff report the patient has been participating in group programming. He has been pleasant and supportive of peers. Pt rated his mood a /10 last evening. Pt was seen today to assess progress since admission. He reports "I'm feeling pretty groggy." Pt states that he believes this is related to the haloperidol, as he feels decent when he first wakes up but fatigue increases following morning medication administration. We reviewed typical side effects for this class of medications and patient was reminded that it make take some behavioral adjustments to combat the fatigue. We did, however, discuss that weighting the dosing to bedtime can also be helpful. Pt was agreeable with this plan and reported a preference to continue with only BID dosing. Pt denied additional concerns related to medications. Pt states he has been thinking about several discharge goals, one of which being to obtain a flip phone. He is hopeful to continue working with his case maker. We did begin the discussion for Caro and the patient's ability to begin receiving haloperidol decanoate. Pt was not opposed to the idea and asked appropriate questions, however, stated he did not want to make a decision while he was feeling "so groggy I can't think straight." He did agree to continued conversations about this medication recommendation over the next few days. Pt denied other needs or concerns today. Physical Exam Psychiatric Orientation: alert, oriented x 3 and cooperative Apperance: appropriately dressed, appropriately groomed and appeared stated age Eye Contact: good eye contact Motor Behavior: steady gait and station and no abnormal motor movements Speech: normal rate/rhythm/volume of speech Affect: + blunted affect (appearing subdued/fatigued) Mood: no depressed mood and no anxious mood "hard to tell when I'm feeling this groggy" Thought Process: goal directed thought process and + concrete thought process Thought Content: reality based without delusions (none verbalized during conversation today); no hopelessness Suicidal Thoughts: denies suicidal thoughts and denies suicidal intent Homicidal Thoughts: denies homicidal thoughts Hallucinations: no auditory hallucinations and no visual hallucinations Cognition: attention grossly intact and language grossly intact Estimated Intelligence: consistent with education level Insight: + limited insight Judgement: + limited judgement Vital Signs (Past 24 Hours) Last Vital Signs Temp 36.4 C L 01/03/20 06:39 Pulse 88 01/03/20 06:39 Resp 16 01/03/20 06:39 BP 122/68 01/03/20 06:39 Pulse Ox 97 12/28/19 17:56 Results & Data ([facility]) Laboratory Results Laboratory Results - last 24 hr 01/02/20 01/02/20 01/02/20 11:40 12:06 17:21 Sodium 132 L Potassium 3.8 Chloride 99 Carbon Dioxide 26 Anion Gap 7.0 BUN 20 H Creatinine 1.17 Est Cr Clr Drug Dosing 99.5 Est GFR ( Amer) 83.2 Est GFR (Non-Af Amer) 71.8 BUN/Creatinine Ratio 17.2 Glucose 114 H POC Glucose 117 H 132 H Calcium 9.1 Total Bilirubin 0.9 AST 69 H ALT 109 H Alkaline Phosphatase 97 Total Protein 8.2 Albumin 3.9 Globulin 4.3 H Albumin/Globulin Ratio 0.9 01/02/20 01/03/20 20:40 07:56 Sodium Potassium Chloride Carbon Dioxide Anion Gap BUN Creatinine Est Cr Clr Drug Dosing Est GFR ( Amer) Est GFR (Non-Af Amer) BUN/Creatinine Ratio Glucose POC Glucose 148 H 119 H Calcium Total Bilirubin AST ALT Alkaline Phosphatase Total Protein Albumin Globulin Albumin/Globulin Ratio Current Inpatient Medications Current Inpatient Medications: Current Inpatient Medications Acetaminophen (Acetaminophen 325 Mg Tab) 650 mg PO Q4H PRN PRN Reason: Headache or Minor Fever Stop: 01/27/20 16:59 Al Hydrox/Mg Hydrox/Simethicone (Aluminum/Magnesium Susp 30 Ml Udc) 30 ml PO Q4H PRN PRN Reason: GI Upset Stop: 01/27/20 16:59 Atorvastatin Calcium (Atorvastatin 40 Mg Tab) 80 mg PO DAILY AMY Stop: 01/28/20 08:59 Last Admin: 01/03/20 08:37 Dose: 80 mg Documented by: Benztropine Mesylate (Benztropine Mesylate 1 Mg Tab) 2 mg PO BID PRN PRN Reason: Extra Pyramidal Symptoms Stop: 01/29/20 10:37 Benztropine Mesylate (Benztropine Mesylate 0.5 Mg Tab) 0.5 mg PO BID [facility] Stop: 01/30/20 20:59 Last Admin: 01/03/20 08:35 Dose: 0.5 mg Documented by: Bismuth Subsalicylate (Bismuth Subsalicylate Liqd 236 Ml) 15 ml PO PRN PRN PRN Reason: Loose Stool Stop: 01/27/20 16:59 Citalopram Hydrobromide (Citalopram 20 Mg Tab) 10 mg PO QAM [facility] Stop: 01/28/20 08:59 Last Admin: 01/03/20 08:33 Dose: 10 mg Documented by: Clopidogrel Bisulfate (Clopidogrel Bisulfate 75 Mg Tab) 75 mg PO DAILY [facility] Stop: 01/28/20 08:59 Last Admin: 01/03/20 08:37 Dose: 75 mg Documented by: Dextrose (Dextrose 50% 50 Ml Syringe) 25 - 50 ml IV UD PRN; Protocol PRN Reason: Hypoglycemia Protocol Stop: 01/27/20 17:14 Docusate Sodium (Docusate Sodium 100 Mg Cap) 100 mg PO BID [facility] Stop: 01/30/20 10:14 Last Admin: 01/03/20 08:36 Dose: 100 mg Documented by: Glucagon (Glucagon For Inj 1 Mg Vial) 1 mg IM UD PRN; Protocol PRN Reason: Hypoglycemia Protocol Stop: 01/27/20 17:14 Glucose (Glucose 40% Gel 15 Gm Tube) 15 - 30 gm PO UD PRN; Protocol PRN Reason: Hypoglycemia Protocol Stop: 01/27/20 17:14 Glucose (Glucose 10 Tabs/Tube) 4 - 8 tabs PO UD PRN; Protocol PRN Reason: Hypoglycemia Protocol Stop: 01/27/20 17:14 Lisinopril/HCTZ (Lisinopril/Hctz 20/12.5mg 1 Tab Tab) 1 tab PO DAILY [facility] Stop: 01/28/20 08:59 Last Admin: 01/03/20 08:37 Dose: 1 tab Documented by: Haloperidol (Haloperidol 5 Mg Tab) 5 mg PO Q6 PRN PRN Reason: Anxiety/Agitation Stop: 01/27/20 18:12 Haloperidol (Haloperidol 5 Mg Tab) 10 mg PO BID AMY Stop: 01/29/20 20:59 Last Admin: 01/03/20 08:36 Dose: 10 mg Documented by: Haloperidol Lactate (Haloperidol Lactate 5 Mg/Ml 1 Ml Vial) 5 mg IM BID PRN PRN Reason: Refusal of PO Halopeidol Stop: 01/29/20 13:59 Hydroxyzine HCl (Hydroxyzine Hcl 25 Mg Tab) 50 mg PO HSZ PRN PRN Reason: Insomnia Stop: 01/27/20 16:59 Hydroxyzine HCl (Hydroxyzine Hcl 25 Mg Tab) 25 mg PO Q4H PRN PRN Reason: Anxiety Stop: 01/27/20 16:59 Insulin Aspart (Insulin Aspart 100 Units/Ml 3 Ml Pen) 0 units SC [facility]; Protocol Stop: 01/27/20 20:59 Last Admin: 01/03/20 08:54 Dose: 1 units Documented by: Lorazepam (Lorazepam 1 Mg Tab) 1 mg PO Q6 PRN PRN Reason: Anxiety/Agitation Stop: 01/27/20 18:12 Magnesium Hydroxide (Magnesium Hydroxide Susp 30 Ml Udc) 30 ml PO DAILY PRN PRN Reason: Constipation Stop: 01/27/20 16:59 Miscellaneous (Carbohydrates For Hypoglycemia ) 15 - 30 gm PO UD PRN PRN Reason: Hypoglycemia Treatment Stop: 01/27/20 17:14 Miscellaneous Information (Pharmacy Glycemic Mgmt Consult) 1 ea N/A UD PRN PRN Reason: Consult Stop: 01/27/20 17:07 Sodium Chloride (Sodium Chloride 0.65% Na Soln 45 Ml ([place])) 1 - 2 sprays NA PRN PRN PRN Reason: Nasal Dryness/Congestion Stop: 01/27/20 16:59 Mental Health & Subst Abuse Tx Therapist Name of Therapist: saw therapist at [facility] but stopped after Covid Community Nutrition Educator Name of Community Nutrition Educator: None Post Discharge Appointments Primary Care Physician Name Of Family Doctor: Lisandro AMAYA [facility]
--- NOTE | 2020-01-03 11:17 | Pharmacy Report ---
Pharmacy Glycemic Sign Off Nt - Date of Service January 03, 2020 - Assessment & Plan ASSESSMENT: * Pharmacy was consulted by Dr. Horne on 12/28/2019 for glycemic control and to write orders per [facility] inpatient glycemic control protocol. * Major changes made by pharmacy to antidiabetic regimen include: * Significant decreases from home insulin regimen * Patient has been receiving/requiring 10 units of insulin per day for adequate glycemic control * BSGs ranging 110 - 140 mg/dl * Regimen has only required minor adjustments over the past 48hrs to achieve this level of control * Do not anticipate further changes in patient status that would quickly deteriorate glycemic control (i.e. patient to be NPO for upcoming procedure, steroids tapering, starting tube feedings, etc). * Please see recommendations for outpatient antidiabetic regimen below. PLAN FOR INPATIENT GLYCEMIC CONTROL: No changes needed to current regimen. * Continue NovoLog per scale ACHS/Q6hrs while NPO * Goal range = 110 - 140 mg/dl * CF = 30 mg/dl/unit * CR = 1 unit for ever 10 g CHO consumed * Pharmacy is signing off of glycemic consult and will no longer be making adjustments to inpatient regimen. Please feel free to re-consult if needed. Thank you. DISCHARGE RECOMMENDATIONS: * A1c 5.9% on 04/11/2019. No A1c update during this admission. There is some confusion as to what the patient takes at home for diabetes. Home doses are very high (Tresiba 160 units qAM and Humalog 32 units qPM) and the regimen is very odd to begin with. The patient reports he has not taken insulin in a very long time as he has learned to control his diabetes with diet/exercise. However, his outpatient fill history dose appear that he has been filling the insulin. He reports that he thinks someone is stealing it. * Based on inpatient BSGs and insulin use, I would recommend discontinuing all insulin orders listed and list his T2DM as diet/exercise controlled. He should follow-up with his outpatient provider to discuss his T2DM management.
--- NOTE | 2020-01-03 16:30 | Communication Note ---
Date of Service: January 03, 2020 [facility] after informed by social media marketing analyst that their staff (Cyndie Leija) said they do not do 304 IOCs due to lack of staff, to try to clarify and explore best way to ensure patient gets the needed outpatient treatment. Spoke with Esa, supervisor trust accounts for the assessment unit. Esa stated he was not certain why we were told that 304s were not an option. He suggested we call back tomorrow to talk with Cyndie's supervisor trust accounts Rubi Henry.
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
[2020-01-04] MEDS: ATORVASTATIN 40 MG TAB PO SCH (08:09)
[2020-01-04] MEDS: DOCUSATE SODIUM 100 MG CAP PO SCH ×2 (08:09→20:58)
[2020-01-04] MEDS: haloperidoL 5 MG TAB PO SCH ×2 (08:09→20:59)
[2020-01-04] MEDS: LISINOPRIL/HCTZ 20/12.5MG 1 TAB TAB PO SCH (08:09)
[2020-01-04] MEDS: BENZTROPINE MESYLATE 0.5 MG TAB PO SCH ×2 (08:09→20:57)
[2020-01-04] MEDS: CLOPIDOGREL BISULFATE 75 MG TAB PO SCH (08:10)
[2020-01-04] MEDS: CITALOPRAM 20 MG TAB PO SCH (08:10)
[2020-01-04] MEDS: INSULIN ASPART 100 UNITS/ML 3 ML PEN SC SCH ×4 (09:12→20:54)
[2020-01-04 09:45] LABS: Albumin Level 4.1 gm/dl (3.4-5.0); Bilirubin Direct 0.2 mg/dl (0-0.2); Bilirubin,Total 0.8 mg/dl (0.2-1); Total Protein 8.6 gm/dl (6.4-8.2)
[2020-01-05] MEDS: CITALOPRAM 20 MG TAB PO SCH (08:42)
[2020-01-05] MEDS: DOCUSATE SODIUM 100 MG CAP PO SCH ×2 (08:43→21:02)
[2020-01-05] MEDS: BENZTROPINE MESYLATE 0.5 MG TAB PO SCH ×2 (08:43→21:01)
[2020-01-05] MEDS: ATORVASTATIN 40 MG TAB PO SCH (08:43)
[2020-01-05] MEDS: CLOPIDOGREL BISULFATE 75 MG TAB PO SCH (08:44)
[2020-01-05] MEDS: LISINOPRIL/HCTZ 20/12.5MG 1 TAB TAB PO SCH (08:44)
[2020-01-05] MEDS: haloperidoL 5 MG TAB PO SCH ×2 (08:45→21:01)
[2020-01-05] MEDS: INSULIN ASPART 100 UNITS/ML 3 ML PEN SC SCH ×4 (08:51→20:57)
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
[2020-01-06] MEDS: CITALOPRAM 20 MG TAB PO SCH (08:20)
[2020-01-06] MEDS: ATORVASTATIN 40 MG TAB PO SCH (08:21)
[2020-01-06] MEDS: CLOPIDOGREL BISULFATE 75 MG TAB PO SCH (08:21)
[2020-01-06] MEDS: LISINOPRIL/HCTZ 20/12.5MG 1 TAB TAB PO SCH (08:21)
[2020-01-06] MEDS: DOCUSATE SODIUM 100 MG CAP PO SCH ×2 (08:21→20:45)
[2020-01-06] MEDS: BENZTROPINE MESYLATE 0.5 MG TAB PO SCH ×2 (08:22→20:45)
[2020-01-06] MEDS: haloperidoL 5 MG TAB PO SCH ×2 (08:22→20:45)
[2020-01-06] MEDS: INSULIN ASPART 100 UNITS/ML 3 ML PEN SC SCH ×5 (09:05→21:12)
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
[2020-01-07] MEDS: LISINOPRIL/HCTZ 20/12.5MG 1 TAB TAB PO SCH (08:31)
[2020-01-07] MEDS: DOCUSATE SODIUM 100 MG CAP PO SCH ×2 (08:31→20:37)
[2020-01-07] MEDS: CLOPIDOGREL BISULFATE 75 MG TAB PO SCH (08:31)
[2020-01-07] MEDS: CITALOPRAM 20 MG TAB PO SCH (08:31)
[2020-01-07] MEDS: ATORVASTATIN 40 MG TAB PO SCH (08:31)
[2020-01-07] MEDS: BENZTROPINE MESYLATE 0.5 MG TAB PO SCH ×2 (08:33→20:37)
[2020-01-07] MEDS: haloperidoL 5 MG TAB PO SCH ×3 (08:33→20:37)
[2020-01-07] MEDS: INSULIN ASPART 100 UNITS/ML 3 ML PEN SC SCH ×4 (08:37→20:37)
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
[2020-01-08] MEDS: haloperidoL 5 MG TAB PO SCH ×2 (06:26→20:15)
[2020-01-08] MEDS: INSULIN ASPART 100 UNITS/ML 3 ML PEN SC SCH ×4 (09:28→20:10)
[2020-01-08] MEDS: CITALOPRAM 20 MG TAB PO SCH (09:30)
[2020-01-08] MEDS: BENZTROPINE MESYLATE 0.5 MG TAB PO SCH ×2 (09:31→20:14)
[2020-01-08] MEDS: DOCUSATE SODIUM 100 MG CAP PO SCH ×2 (09:31→20:15)
[2020-01-08] MEDS: ATORVASTATIN 40 MG TAB PO SCH (09:33)
[2020-01-08] MEDS: LISINOPRIL/HCTZ 20/12.5MG 1 TAB TAB PO SCH (09:34)
[2020-01-08] MEDS: CLOPIDOGREL BISULFATE 75 MG TAB PO SCH (09:34)
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
[2020-01-09] MEDS: CITALOPRAM 20 MG TAB PO SCH (08:46)
[2020-01-09] MEDS: ATORVASTATIN 40 MG TAB PO SCH (08:47)
[2020-01-09] MEDS: BENZTROPINE MESYLATE 0.5 MG TAB PO SCH (08:47)
[2020-01-09] MEDS: DOCUSATE SODIUM 100 MG CAP PO SCH (08:47)
[2020-01-09] MEDS: CLOPIDOGREL BISULFATE 75 MG TAB PO SCH (08:47)
[2020-01-09] MEDS: LISINOPRIL/HCTZ 20/12.5MG 1 TAB TAB PO SCH (08:48)
[2020-01-09] MEDS: INSULIN ASPART 100 UNITS/ML 3 ML PEN SC SCH (08:52)
--- NOTE | 2020-01-09 09:24 | Discharge Summary ---
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 Deviation RDW Coeff of [place] Plt Count MPV Immature Gran % (Auto) Neut % (Auto) Lymph % (Auto) Elliott % (Auto) Eos % (Auto) Baso % (Auto) Neut # (Auto) Lymph # (Auto) Elliott # (Auto) Eos # (Auto) Baso # (Auto) Immature Gran # (Auto) Sodium Potassium Chloride Carbon Dioxide Anion Gap BUN Creatinine Est Cr Clr Drug Dosing Est GFR ( Amer) Est GFR (Non-Af Amer) BUN/Creatinine Ratio Glucose POC Glucose 109 H 142 H 148 H Fasting Glucose Calcium Total Bilirubin Direct Bilirubin AST ALT Alkaline Phosphatase Total Protein Albumin Globulin Albumin/Globulin Ratio TSH Urine Color Urine Appearance Urine pH Ur Specific [place] Urine Protein Urine Glucose (UA) Urine Ketones Urine Blood Urine Nitrite Urine Bilirubin Urine Urobilinogen Ur Leukocyte Esterase Salicylates Urine Opiates Screen Ur Methadone, Qual Acetaminophen Urine Barbiturates Ur Phencyclidine (PCP) U Amphetamin/Meth Scrn MDMA (Ecstasy) Screen U Benzodiazepines Scrn Ur Cocaine Metabolite U Marijuana (THC) Screen Ethyl Alcohol mg/dL COVID-19 Eval Order SARS-CoV-2, RNA, NAAT 01/06/20 01/06/20 01/06/20 11:53 17:08 20:43 WBC RBC Hgb Hct MCV MCH MCHC RDW Std Deviation RDW Coeff of [place] Plt Count MPV Immature Gran % (Auto) Neut % (Auto) Lymph % (Auto) Elliott % (Auto) Eos % (Auto) Baso % (Auto) Neut # (Auto) Lymph # (Auto) Elliott # (Auto) Eos # (Auto) Baso # (Auto) Immature Gran # (Auto) Sodium Potassium Chloride Carbon Dioxide Anion Gap BUN Creatinine Est Cr Clr Drug Dosing Est GFR ( Amer) Est GFR (Non-Af Amer) BUN/Creatinine Ratio Glucose POC Glucose 145 H 136 H 124 H Fasting Glucose Calcium Total Bilirubin Direct Bilirubin AST ALT Alkaline Phosphatase Total Protein Albumin Globulin Albumin/Globulin Ratio TSH Urine Color Urine Appearance Urine pH Ur Specific [place] Urine Protein Urine Glucose (UA) Urine Ketones Urine Blood Urine Nitrite Urine Bilirubin Urine Urobilinogen Ur Leukocyte Esterase Salicylates Urine Opiates Screen Ur Methadone, Qual Acetaminophen Urine Barbiturates Ur Phencyclidine (PCP) U Amphetamin/Meth Scrn MDMA (Ecstasy) Screen U Benzodiazepines Scrn Ur Cocaine Metabolite U Marijuana (THC) Screen Ethyl Alcohol mg/dL COVID-19 Eval Order SARS-CoV-2, RNA, NAAT 01/07/20 01/07/20 01/07/20 08:25 12:29 16:35 WBC RBC Hgb Hct MCV MCH MCHC RDW Std Deviation RDW Coeff of [place] Plt Count MPV Immature Gran % (Auto) Neut % (Auto) Lymph % (Auto) Elliott % (Auto) Eos % (Auto) Baso % (Auto) Neut # (Auto) Lymph # (Auto) Elliott # (Auto) Eos # (Auto) Baso # (Auto) Immature Gran # (Auto) Sodium Potassium Chloride Carbon Dioxide Anion Gap BUN Creatinine Est Cr Clr Drug Dosing Est GFR ( Amer) Est GFR (Non-Af Amer) BUN/Creatinine Ratio Glucose POC Glucose 126 H 136 H 116 H Fasting Glucose Calcium Total Bilirubin Direct Bilirubin AST ALT Alkaline Phosphatase Total Protein Albumin Globulin Albumin/Globulin Ratio TSH Urine Color Urine Appearance Urine pH Ur Specific [place] Urine Protein Urine Glucose (UA) Urine Ketones Urine Blood Urine Nitrite Urine Bilirubin Urine Urobilinogen Ur Leukocyte Esterase Salicylates Urine Opiates Screen Ur Methadone, Qual Acetaminophen Urine Barbiturates Ur Phencyclidine (PCP) U Amphetamin/Meth Scrn MDMA (Ecstasy) Screen U Benzodiazepines Scrn Ur Cocaine Metabolite U Marijuana (THC) Screen Ethyl Alcohol mg/dL COVID-19 Eval Order SARS-CoV-2, RNA, NAAT 01/07/20 01/08/20 01/08/20 20:33 07:59 12:38 WBC RBC Hgb Hct MCV MCH MCHC RDW Std Deviation RDW Coeff of [place] Plt Count MPV Immature Gran % (Auto) Neut % (Auto) Lymph % (Auto) Elliott % (Auto) Eos % (Auto) Baso % (Auto) Neut # (Auto) Lymph # (Auto) Elliott # (Auto) Eos # (Auto) Baso # (Auto) Immature Gran # (Auto) Sodium Potassium Chloride Carbon Dioxide Anion Gap BUN Creatinine Est Cr Clr Drug Dosing Est GFR ( Amer) Est GFR (Non-Af Amer) BUN/Creatinine Ratio Glucose POC Glucose 171 H 148 H 125 H Fasting Glucose Calcium Total Bilirubin Direct Bilirubin AST ALT Alkaline Phosphatase Total Protein Albumin Globulin Albumin/Globulin Ratio TSH Urine Color Urine Appearance Urine pH Ur Specific [place] Urine Protein Urine Glucose (UA) Urine Ketones Urine Blood Urine Nitrite Urine Bilirubin Urine Urobilinogen Ur Leukocyte Esterase Salicylates Urine Opiates Screen Ur Methadone, Qual Acetaminophen Urine Barbiturates Ur Phencyclidine (PCP) U Amphetamin/Meth Scrn MDMA (Ecstasy) Screen U Benzodiazepines Scrn Ur Cocaine Metabolite U Marijuana (THC) Screen Ethyl Alcohol mg/dL COVID-19 Eval Order SARS-CoV-2, RNA, NAAT 01/08/20 01/08/20 01/09/20 17:02 20:08 07:41 WBC RBC Hgb Hct MCV MCH MCHC RDW Std Deviation RDW Coeff of [place] Plt Count MPV Immature Gran % (Auto) Neut % (Auto) Lymph % (Auto) Elliott % (Auto) Eos % (Auto) Baso % (Auto) Neut # (Auto) Lymph # (Auto) Elliott # (Auto) Eos # (Auto) Baso # (Auto) Immature Gran # (Auto) Sodium Potassium Chloride Carbon Dioxide Anion Gap BUN Creatinine Est Cr Clr Drug Dosing Est GFR ( Amer) Est GFR (Non-Af Amer) BUN/Creatinine Ratio Glucose POC Glucose 122 H 168 H 133 H Fasting Glucose Calcium Total Bilirubin Direct Bilirubin AST ALT Alkaline Phosphatase Total Protein Albumin Globulin Albumin/Globulin Ratio TSH Urine Color Urine Appearance Urine pH Ur Specific [place] Urine Protein Urine Glucose (UA) Urine Ketones Urine Blood Urine Nitrite Urine Bilirubin Urine Urobilinogen Ur Leukocyte Esterase Salicylates Urine Opiates Screen Ur Methadone, Qual Acetaminophen Urine Barbiturates Ur Phencyclidine (PCP) U Amphetamin/Meth Scrn MDMA (Ecstasy) Screen U Benzodiazepines Scrn Ur Cocaine Metabolite U Marijuana (THC) Screen Ethyl Alcohol mg/dL COVID-19 Eval Order SARS-CoV-2, RNA, NAAT Hospital Course (1) Delusional disorder, persecutory type: 12/28 -presentation similar to previous hospitalization in April 2019. Floridly delusional, disorganized, agitated. Delusions are directing behavior, resulting in not eating (believes food is being poisoned), not interacting w/ family/supports, not taking medications, and threatening [facility] which may result in homelessness. He is hypertensive here, with elevated transaminases, unclear if this is related to medication nonadherence or some other underlying medical issue. He lacks any insight into his condition, does not feel he needs hospitalization or treatment, and is refusing to sign CHERY's to allow us to coordinate with his outpatient providers or family. I do not know if he ever followed up with outpatient mental health services, but had been referred to [facility] for case management, and to [facility] for psychiatry and therapy. His brother was a good source of support during his previous hospitalization, and we will encourage patient to allow family to become involved. He is currently angry and unwilling. -I have resumed risperidone 1 mg twice daily as he had a good response to this in April, but he is refusing it. I recommend medications over objection as his psychotic symptoms responded to medication in the past and are unlikely to remit without antipsychotic medication, and he is at acute risk to both himself and others if he continues to be psychotic. -Monitoring on atypical antipsychotic: FLP was normal on 04/13/2019. Fasting glucose this morning was normal. -Continue to gather information toward the need for ongoing involuntary treatment, and consider a 304 IOC. -Contact PCPs office to clarify whether patient got the brain MRI that we had recommended on discharge in the spring. Also clarify whether he has had elevated LFTs before (see below). 12/29 -Initially this morning the patient continued to demonstrate florid psychosis. More specifically, he continues to accuse the staff of tampering with his food and attempting to poison him by similarly tampering with his medications. Within this context, he was refusing all medications, including nonpsychiatric medications as well as psychiatric medications, and he was also essentially refusing to eat. He has been consuming fluids, as long as we give them to him in the form of bottled water that is sealed. -A second opinion for medications over objection was provided, and the patient was offered a choice of oral haloperidol or IM haloperidol. He agreed agreed to take Haldol 10 mg by mouth, but declined a oral dose of lorazepam that have been offered. After sleeping for an hour or 2, the patient got up, began walking around the unit and exploring things, and began to interact more appropriately with staff, although he was disinclined to speak at any length and asked to be excused from conversations, "for right now." He also acknowledged that he was feeling significantly better, and eventually stated that he felt that the medication that he had been given had been helpful to him. He remains to be seen if he will continue to take oral psychiatric medications, and an order for medications over objection remains in place.-- -Given what appears to be a robust response to Haldol 10 mg by mouth, we decided to discontinue risperidone (which never been actually given because the patient had refused to take it voluntarily) in favor of haloperidol 10 mg twice a day. As above, an order for haloperidol 5 mg IM as needed for refusal of p.o Haldol is in place. There is also an order for as needed oral Haldol and an order in place for as needed benztropine for EPS.. 12/30 -Appearing a little better consolidated and cooperative today following first doses of Haldol. He is complaining of increased muscle tightness but not overtly dystonic and will initiate standing dose of Cogentin 0.5 mg twice daily -We will also initiate docusate 100 mg p.o. twice daily and encouraged him to push p.o. fluids for complaint of constipation, particularly in starting the standing Cogentin 12/31 -Demonstrating continued improvement with reduced overt paranoia, reduced irritability, improving compliance with treatment recommendations on Haldol -Continue Cogentin which appears effective for muscle tightness 01/01 -303 hearing held. -Continue current medications, encourage transition to Haldol Decanoate to improve adherence. -Patient has now signed releases to allow us to refer him for a porter sample case through [facility], and return to [facility] for psychiatry and therapy. He is also agreeing to a family meeting with his brother, Shayne. 01/02 - We were informed 303 was granted following hearing yesterday - Continue current daily dose of 20mg total of haloperidol; however, patient is requesting adjustments to reduce daytime fatigue. Pt was agreeable with reducing AM dose to 5mg while titrating HS dose to 15mg. We discussed usual side effects of the medication includes some level of possible fatigue. - We did begin the conversation about Caro and recommendation for conversion to haloperidol decanoate - patient asked appropriate questions but was not yet open to committing to the medication change. - Pt denied other concerns today, denies safety concerns related to the idea of discharge - Continue to coordinate with outpatient and community supports regarding ways to improve compliance with medications and follow-up appointments 01/03 -Family meeting with brother and [id number] for discharge planning. Brother offered to assist patient w/ computer access for telepsych appts - but patient was resistant to this. -Attempting to arrange outpatient services: We spoke with [facility] Vamshi Barajas who had agreed to do patient's intake by phone while he was here in the hospital, but then spoke with somebody else from that organization who said they cannot do that. Concerned about lack of scheduled aftercare appointments given patient's tendency to "fall through the cracks" and limited insight. We are recommending a [address] [facility], spoke with Pasquale Melo ([facility]) about this, and patient will need to complete phone intake to be re-opened with his previous porter sample case Eddi Wolf. 304 inpatient commitment hearing scheduled for Thursday, as goal is for discharge Thursday, but [facility] was not able to hold a hearing that day. Will transition from inpatient commitment to IOC at discharge Thursday. -Patient is responding well to haloperidol 5 mg every morning and 15 mg at bedtime, reports decreased daytime sedation/fogginess with waiting the dose at bedtime. Encouraged him to transition to Haldol Decanoate, but he is reluctant to do so given the concerns about elevated transaminases as below. Discussed option to switch to another antipsychotic; he has had a good response to risperidone in the past, but opted to continue with haloperidol for now. 01/04 -Continue current medications as patient improving and tolerating them well. -Spoke with [facility] as we'd requested they do his case management intake while he's on the unit, as he doesn't have a phone currently and has dropped out of treatment before, but they declined to do that. They are going to see him at his home . or Thu. next week to complete the intake. -Social work continues to try to coordinate with [facility] regarding outpatient psychiatric care and therapy. -Called and spoke to staff at his PCP's office to relay current treatment plan - discharge on IOC, need from brain MRI, and f/u LFTs. Will send records for continuity of care. He is scheduled to see Adonay DILLON on 01/18/2021 at at 8:30am. 01/05 -The patient reports that he feels that haloperidol in combination with citalopram has been very helpful. He does note that he is feeling somewhat sedated during the day, even after the dose of haloperidol was adjusted from 10 mg twice a day to a dose of 5 mg in the morning and 15 mg at bedtime. I advised the patient to give the matter some more time as the sedative effects may become diminished over time. Also, I said that 1 option that he might be able to consider, with the endorsement of his treating outpatient psychiatrist, is to break his 5 mg haloperidol tablet (to be taken in the morning) in half and take 2.5 mg in the morning, 2.5 mg later in the day, and continue 15 mg at bedtime. However, I advised him that we are not recommending making a change in his medication given his anticipated discharge date of Thursday, and the patient said that this was acceptable to him. Reviewed 01/07/20. Haldol 2.5 am, 2 pm rather than 5 mg am. (2) Depressive disorder, not elsewhere classified: 12/28 -resumed citalopram 10 mg daily; try to gather information from family or friends regarding recent mood symptoms, once patient is willing. 12/29 -The patient has not yet agreed to take citalopram. We will continue to encourage him to take it as prescribed. However, as above, the patient's mood appears to have improved and that he is seemingly significantly less irritable. 12/31 -Mood improving which appears most likely due to reduced delusional thought content and associated distress -He is again compliant with 10 mg daily dose of Celexa 01/05 -In my mind, the differential diagnosis includes major depressive disorder, recurrent, with psychotic features. Several factors point to this. The patient tells me that he does not lose touch with reality or become suspicious or paranoid unless he is also feeling depressed. Also, his rapid response to antipsychotic medications, in combination with an antidepressant medication, can occur with a pure delusional disorder, but unfortunately this relatively rapid improvement and favorable response to antipsychotic medications in a delusional disorder is generally not expected. Reviewed 01/07/20. (3) Hypertension: 12/28 -continue home dose of lisinopril/hydrochlorothiazide monitor blood pressure. Current hypertension may be due to agitation, continue to monitor. 12/31 -Pressures have improved but remain mildly elevated. We will continue to monitor. Has been compliant with last 2 doses of his home dose lisinopril/hydrochlorothiazide 01/02 - Continues to be compliant with antihypertensive medications. 01/05 -Patient continues to be adherent with antihypertensive medications and reports full intention of remaining adherent. Reviewed 01/07/20. (4) Elevated transaminase level: 12/28 -AST 51 and ALT 109, unclear if he has chronic elevation, as we have no previous results (when he was here in 04/2019, no LFTs were done and he was referred from an outside hospital ER). -I have asked staff to contact his PCP to determine whether this has been an issue before. Recommend rechecking labs in a few days. 12/29 -Repeat liver panel scheduled for 01/02/2020. 12/31 -order for cmp thursday AM placed to trend LFT's 01/02 - AST even further elevated yesterday at 69, ALT remained at 109 - Will need to be followed by PCP for further monitoring and additional interventions as indicated 01/03 -Recheck LFTs today; trending down with AST 42 and ALT 91. Total protein 8.6, otherwise normal bilirubin, alkaline phosphatase, and albumin. No abdominal symptoms. Denies acetaminophen, other [id number], and alcohol use at home. Although haloperidol can cause elevated transaminases, this is usually with prolonged treatment, and his LFTs were elevated on admission, before he was on medications (had been off psych meds for months). Schedule follow up with PCP for this and for brain MRI, which he never got after last hospitalization. Reviewed 01/07/20. (5) Type II diabetes mellitus: 12/28 -continue home dose of insulin, diabetic diet, and consult pharmacist for glycemic control/management. 12/29 -With significant amount of effort on the part of the staff, the patient did agree to allow his blood glucose level to be tested this morning. The measured level was within normal limits, but this is within the context of his refusal of most foods and all caloric drinks. 12/30-Blood sugar stable 01/05 -The patient is fully adherent with his diabetic diet, with regular serum glucose levels, and with his diabetic medication regimen. Further, he reports that he fully intends to remain adherent with his diet, blood glucose checks, and medication regimen on an outpatient basis. Reviewed 01/07/20. (6) Coronary arteriosclerosis: 12/28 -continue home doses of atorvastatin and Plavix 12/29 -The patient is continuing to refuse doses of ever statin and Plavix, but within the above referenced evidence of favorable response to haloperidol given in the late morning, we are hopeful that the patient's willingness to cooperate with medications and his ability to trust staff well allow him to resume have a statin and Plavix as ordered. 01/02 - Pt has been more consistent with statin and Plavix for the past several days. 01/05 -The patient remains adherent with his medication regimen, and reiterates his commitment to continue adherence on an outpatient basis. Reviewed 01/07/20. Mental Health & Subst Abuse Tx Psychiatrist Name of Psychiatrist: KATH Psychiatrist's Date of Appointment with Psychiatrist: 01/10/20 Time of Appointment with Psychiatrist: will call you Psychiatric Appointment Comment: [id number] [place] [id number] Therapist Name of Therapist: KATH Therapist's Date of Therapist Appointment: 01/10/20 Time of Therapist Appointment: Will call you Therapy Appointment Comment: [id number] [place] [address] Road Tester Name of Road Tester: Luke Nunn MH/ID Phone Number for Road Tester: [phone] Time of Appointment with Road Tester: Ha will come see you at your apartment on 01/09 or 01/10 Post Discharge Appointments Primary Care Physician Name Of Family Doctor: [facility] Date of Appointment with PCP: 01/13/20 Time of Appointment with PCP: 10:00am Provider Appointment Comment: [phone] [place] [id number] Smoking Cessation Counseling Tobacco Cessation Medication Prescribed at Discharge: Not Applicable/Non-Smoker Discharge Plan Discharge Items Patient Disposition: Home - Self-Care Reason For Visit: psychosis Discharge Diagnosis: delusional disorder Condition on Discharge: Good Activity: Resume your previous activity Non-emergency contact: Primary Care Provider Call non-emergency contact if: you have any medication questions and your symptoms worsen Follow-up/Referrals: Adonay Mcmahon, BABAR [Primary Care Provider] - Diet: Regular Addtl Attending Provider Instructions: SPECIAL CARE INSTRUCTIONS: 1. Follow through with your scheduled aftercare appointments. If unable to keep an appointment, please call to reschedule. 2. Take your medication only as prescribed. Medication should not be changed or stopped without the approval of your doctor. In the event of worsening symptoms or concerns about side effects, contact your doctor immediately. 3. Utilize new healthy coping skills, anger management skills, and stress management skills learned during your hospitalization. Journal feelings and process them with a support person. Identify stressors or situations that may result in relapse, deterioration or inappropriate behaviors and develop a plan to deal with those issues. 4. If your coping skills are ineffective and you are in crisis, contact your outpatient providers for direction. If unable to reach your providers, please call the [facility] CRISIS LINE AT , go to the [facility] walk-in center at [address], [address], [place], or go to the closest Emergency Room. 5. Avoid alcohol and un-prescribed drugs. 6. You have been provided with the Mental Health Advance Directives Pamphlet for your review. AFTERCARE APPOINTMENTS: * Please call your insurance company prior to your scheduled appointment to confirm your aftercare providers are covered. Take your insurance information to your appointments. WHO TO CALL AND WHEN: Medical Emergencies: For questions or emergencies related to your hospital stay, please contact the Inpatient Behavioral Health Unit at [phone]. A [place]o [place] is on-call 29/09 for the Behavioral Health Unit for emergencies At any time you feel your situation is an emergency, you may also call 911 immediately. Pending Studies at Discharge: No Stand-Alone Forms: My [facility], Smoking Cessation, Suicide Prevention Resources Medications and DC Order Prescriptions: New benztropine 0.5 mg Tablet 0.5 mg PO BID 30 Days Qty: 60 RF: 0 haloperidol 20 mg tablet 20 mg PO HS@2100 30 Days Qty: 30 RF: 0 Continued atorvastatin [Lipitor] 80 mg tablet 80 mg PO DAILY RF: 0 lisinopril-hydrochlorothiazide 20-12.5 mg tablet 1 tab PO DAILY RF: 0 clopidogrel [Plavix] 75 mg tablet 75 mg PO DAILY RF: 0 insulin lispro [Humalog KwikPen Insulin] 100 unit/mL insulin pen 32 unit subcut PM RF: 0 Tresiba FlexTouch U-200 200 unit/mL (3 mL) insulin pen 160 unit SUBCUT DAILY RF: 0 citalopram 10 mg tablet 10 mg PO QAM Qty: 30 RF: 0 Discontinued risperidone 3 mg tablet 3 mg PO HS Qty: 30 RF: 0 Discharge Orders: Discharge Order (Routine); Ordered 01/09/20 Ordered By: Vanessa Pressley Admission Data Admit Date/Time: 12/28/19 17:00 Attending Provider: Archana Horne Admit Provider: Archana Horne Primary Care Provider: Adonay Mcmahon Other Interventions: PSY Interdisciplinary Discharge Planning Last Done: 01/07/20 12:02 Coding Level of Care Code 42516 D/C day mgmt > 30 min Diagnoses Delusional disorder, persecutory type F22 Depressive disorder, not elsewhere classified F32.9 Hypertension I10 Elevated transaminase level R74.01 Type II diabetes mellitus E11.9 Coronary arteriosclerosis I25.10
== END 2020-01-09 10:21 | disposition home or self-care (01) | DRG 885 ==
LOC: ED 11:30 → 3S 17:00